=== PATIENT | male | born 2005 | race Caucasian/White ===

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

== ENCOUNTER 2025-03-07 00:41 | Emergency (ER) | payer OTHER, SELFPAY ==
[2025-03-07 00:41] VITALS: BP 134/79; PULSE 59; RESP 20; TEMP 36.6; O2SAT 98
--- NOTE | 2025-03-07 00:47 | ED.VIS.DYS ---
HPI History of Present Illness Chief Complaint: Cough PFSH PFS Medical History Marijuana use Depression Anxiety Scoliosis Home Medications ?Medication ?Instructions ?Recorded ?Last Taken ?Type escitalopram oxalate 20 mg tablet 20 mg PO DAILY 03/07/25 Unknown History (Lexapro) prednisone 20 mg tablet 20 mg PO DAILY #5 tabs 03/07/25 Unknown Rx Allergy/AdvReac Type Severity Reaction Status Date / Time No Known Allergies Allergy Verified 03/07/25 00:41 Surgical History Hx of shoulder surgery Social History Smoking Status: Never smoker substance use type: does not use EXAM Physical Exam Const Vital Signs: 03/07/25 00:41 03/07/25 00:43 03/07/25 01:19 Temperature 97.9 F Temperature Source Oral Pulse Rate 59 L 68 Respiratory Rate 20 H 12 Respiratory Effort Normal Respiratory Depth Normal Respiratory Pattern Normal Normal Blood Pressure 134/79 H Blood Pressure Mean 97 Pulse Ox 98 Oxygen Delivery Method Room Air Room Air 03/07/25 03:14 Temperature 98 F Temperature Source Pulse Rate 68 Respiratory Rate 12 Respiratory Effort Respiratory Depth Respiratory Pattern Blood Pressure 132/74 H Blood Pressure Mean 93 Pulse Ox 97 Oxygen Delivery Method MDM MDM MDM Narrative Medical decision making narrative: HISTORY OF PRESENT ILLNESS: Chief complaint: Cough 19-year-old male presents with concern for my lungs hurt when I bend over. He also notes a nonproductive cough. This began several weeks ago. Denies chest pain or shortness of breath. Denies cough fever or chills. Denies sick contacts. The patient denies recent surgery in the last 4 weeks or immobilization in the last 3 days, denies previous diagnosis of DVT or PE, hemoptysis, unilateral leg swelling or malignancy with treatment the last 6 months or palliative. No estrogen use noted. REVIEW OF SYSTEMS: Pertinent positives: Cough Pertinent negatives: Chest pain, shortness of breath PHYSICAL EXAM: Nursing triage notes reviewed, Vital signs reviewed Constitutional: please see mdm HENT: MMM Eyes: Pupils equal round and reactive to light, Extraocular muscles intact Neck: No stridor, no JVD, full neck ROM Lungs: Clear to auscultation, No wheezing or rales. No increased work of breathing, no conversational dyspnea, no accessory muscle use, no nasal flaring. No respiratory distress noted Heart: Regular rate and rhythm, No murmurs, No rubs and No gallops, 2+ distal pulses (radial, femoral, posterior tibial) in all extremities Abdomen: Soft, there is no tenderness, rigidity, rebound or guarding, no obvious peritoneal signs, no palpable pulsatile abdominal masses, no auscultated abdominal bruit : No CVAT Extremities: No edema Neuro: No new focal neurological deficits, cranial nerves II through XII intact, 5/5 strength in all present extremities. Intact sensation to light touch in all present extremities, 2+ reflexes bilateral patella tendons. Skin: No rash or lesions noted MEDICAL DECISION MAKING: Chief Complaint: please see HPI External records reviewed: Reviewed prior imaging studies: No recent imaging of the chest Factors affecting care: none Social determinants of health: History of marijuana use History obtained from others: none Consults: none MDM Narrative: The patient was initially hemodynamically stable, afebrile and nontoxic-appearing. Lungs were clear on initial auscultation. I considered the following differential diagnosis: Pneumonia, pneumonitis, pleurisy I obtained a broad chest x-ray to further determine if the patient was suffering from a life-threatening etiology. ALL IMAGES (IF OBTAINED) HAVE BEEN PERSONALLY REVIEWED AND INTERPRETED BY MYSELF. I have personally reviewed the patient's chest x-ray. Chest x-ray is unremarkable for pulmonary edema, pneumothorax, pneumonia or focal cardiopulmonary abnormality. EnCouraged patient to stop vaping and smoking. Spent at least 3 minutes discussing smoking cessation. The patient and/or family, caregivers express understanding. The patient and/or family, caregivers agrees with the plan. Shared decision making: I will have a discussion with the patient and or visitors regarding risk/benefits of further testing or admission. They will be made aware of of the risk/benefits inherent in this decision they will be given the opportunity to voice understanding. Total critical care time today provided was at least 0 minutes. This excludes separately billable procedures. Critical care time (if documented) is secondary to the patient having high probability of clinically significant/life threatening deterioration in the patient's condition which required my urgent intervention. Impression: 1. Cough 2. Vaping associated lung injury Dispo: Discharge home This note was generated with [employer] software. It may contain incorrect words, spelling, and punctuation that were not noted in review of the chart prior to signing. Radiography Diagnostic Testing: Clinical Impression(s) from Imaging Studies Chest X-Ray 03/07/25 01:00 IMPRESSION: Hyperexpanded lungs. Please evaluate to exclude hyperactive airway disease. No focal consolidation. Reading Location: [place] [address] Discharge Plan Triage Chief Complaint: Cough ED Provider: Greg Ignacio Dx/Rx/DC Orders Instructions: ED Bronchitis, No Antibiotic (Adult) Prescriptions: New prednisone 20 mg tablet 20 mg PO DAILY Qty: 5 0RF No Action escitalopram oxalate [Lexapro] 20 mg tablet 20 mg PO DAILY Primary Care Provider: Care Physician,No Primary Referrals: Cheri Alberts MD [Non-Staff, Pediatrics] Activity Restrictions/Additional Instructions: Thank you for trusting us with your care today! Your x-ray was reassuring. Did not show signs of pneumonia, heart failure or other significant abnormalities. I suspect you are suffering from inflammation of your lungs that we called bronchitis. Is likely related to your smoking activities including vaping. Please refrain from vaping and smoking as much as you can. Please take prednisone for its anti-inflammatory effect. Please take Tylenol (2 pills, 650 mg), ibuprofen (2 pills, 400 mg) every 6 hours as needed for pain and fever control. Please return to the emergency department if your symptoms change or worsen. Please follow with your primary care physician for further outpatient evaluation and management. Print Language: Yi Disposition Disposition: Home, Self Care Discharge Date/Time: 03/07/25 03:14
--- NOTE | 2025-03-07 01:00 | RAD_ITS ---
PROCEDURE: CHEST PA AND LATERAL N/A REASON FOR EXAM: COUGH TECHNIQUE: Procedure Code: RADCXR Modality: DX Procedure: CHEST PA AND LATERAL COMPARISON: None. FINDINGS: The lungs are hyperexpanded. There is no demonstrated focal parenchymal abnormality. There is no demonstrated pleural abnormality. Normal heart and pericardium. Normal mediastinum and elvira. Normal visualized pulmonary arteries. Normal visualized aortic arch and descending thoracic aorta. Normal visualized thoracic spine. Normal visualized ribs, clavicles, and shoulders. There is no demonstrated abnormality of the visualized soft tissue structures of the upper abdomen. RAD/Chest PA and Lateral IMPRESSION: Hyperexpanded lungs. Please evaluate to exclude hyperactive airway disease. No focal consolidation. Reading [facility]
[2025-03-07 01:19] VITALS: PULSE 68; RESP 12
--- NOTE | 2025-03-07 02:38 | ED.RN ---
RADIOLOGY CALLED FOR DELAY IN RESULTS. RESPONSE THEY WILL CALL WITH RESULTS
--- OUTSIDE RECORDS SUMMARY | 2025-03-07 02:45 | XMS RPT_ITS | CCD ---
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 3. PND (post-nasal drip) - ICD9: 784.91, ICD10: R09.82 - begin Flonase, available OTC 4. Vapes nicotine containing substance - ICD9: 305.1, ICD10: Z72.0 - Cessation encouraged. - Physiologic and physical aspects of tobacco addiction as well as strategies for quitting were discussed. - Counseling was given focusing on the harmful effects of this addiction especially given the patient's medical condition(s) which will be worsened because of the chemicals in tobacco. Prescription instructions reviewed with patient as applicable. Potential red flag symptoms discussed with the patient. Reviewed appropriate action plan to take if red flag symptoms occur. Patient agreeable to treatment plan. Jean Claude Adkins APRN.Jean Claude Otto APRN.CNP 11/15/2024 2:07 PM Signed Flonase OTC for sinus/sputum production Allergies As of Date: 11/15/2024 (No Known Allergies) Date Reviewed: (more content not included)... Normal [facility] CNOVon 07-11-2024 CNOV Office Visit (FAMPBR ) CHRALEY GUTIERREZ ([id number]) 5 M Date Time Provider Department 07/11/24 9:20 AM MATT MORENO During your visit today, we recorded the following information about you: Pulse Blood pressure Weight Height 78/minute 120/60 78 kg 1.829 m Matt Moreno, 07/11/2024 9:43 AM Signed Periodic Health Examination Patient Name: Charley Gutierrez Today's Date: July 11, 2024 CC: Wellness exam, est care HPI: Charley Gutierrez is an 19 year old male who presents for: Wellness exam, est care Medical, surgical, family and social histories reviewed and updated below. Girlfriend is Elle barney Here with her and her daughter Has KIM/MDD On lexapro 10 mg daily Wants to increase to 20 mg daily Just started counseling Not currently working - living with his girlfriend Looking for work until he start the [employer] Having issues with his stomach Has lactose intolerance Patient will get GI upset out of the blue- will get the runs at times as well Started 1-2 years ago Spicy foods also cause his symptoms Getting central ALLAN's nightly for the last 2 weeks Taking ibuprofen PRN for the pains Gets sensitive to light when it happens Plays a lot of video games nightly Latest Ref Rng 05/02/2024 WBC 3.70 - 11.00 k/uL 8.78 RBC 4.20 - 6.00 m/uL 5.01 Hemoglobin 13.0 - 17.0 g/dL 14.3 Hematocrit 39.0 - 51.0 % 43.7 MCV 80.0 - 100.0 fL 87.2 MCH 26.0 - 34.0 pg 28.5 MCHC 30.5 - 36.0 g/dL 32.7 RDW-CV 11.5 - 15.0 % 13.4 Platelet Count 150 - 400 k/uL 304 MPV 9.0 - 12.7 fL 9.6 Neut% % 59.7 Abs Neut (ANC) 1.45 - 7.50 k/uL 5.24 Lymph% % 28.2 Abs Lymph 1.00 - 4.00 k/uL 2.48 Attala% % 8.2 Abs Attala <0.87 k/uL 0.72 Eosin% % 3.1 Abs Eosin <0.46 k/uL 0.27 Baso% % 0.6 Abs Baso <0.11 k/uL 0.05 Immature Gran % % 0.2 IMMATURE GRANS (ABS) <0.10 k/uL <0.03 NRBC /100 WBC 0.0 Absolute nRBC <0.01 k/uL <0.01 DTYPE Auto Glucose 74 - 99 mg/dL 95 BUN 9 - 24 mg/dL 12 Creatinine 0.73 - 1.22 mg/dL 0.72 (L) Sodium 136 - 144 mmol/L 138 Potassium 3.7 - 5.1 mmol/L 4.3 Chloride 98 - 107 mmol/L 103 CO2 22 - 30 mmol/L 27 Anion Gap 8 - 15 mmol/L 8 Calcium 8.5 - 10.2 mg/dL 9.0 eGFR >=60 mL/min/1.73m? 136 ANTHONY High Sensitivity <12 ng/L 9 ANTHONY High Sensitivity 8 Legend: (L) Low PAST MEDICAL HISTORY Diagnosis Date Concussion 07/31/2017 NEGATIVE HISTORY OF 12-25-2013 Normal Color Vision Routine or ritual circumcision Unspecified and jaundice PAST SURGICAL HISTORY Procedure Laterality Date CIRCUMCISION W/CLAMP/OTH DEV W/BLOCK Current Outpatient Medications Medication Sig Dispense Refill escitalopram oxalate (LEXAPRO) 20 mg tablet Take 1 tablet by mouth once daily. 90 tablet 3 famotidine (PEPCID) 20 mg tablet Take 1 tablet by mouth two times a day. 180 tablet 0 No current facility-administered medications for this visit. FamHx: Reviewed FAMILY HISTORY Problem Relation Age of Onset Diabetes Other mggm SocHx: Reviewed Social History Tobacco Use Smoking status: Never Smokeless tobacco: Never Substance Use Topics Alcohol use: No Drug use: No Health Maintenance reviewed REVIEW OF SYSTEMS See HPI PHYSICAL EXAM BP 120/60 Pulse 78 Ht 182.9 cm (6') Wt 78 kg (172 lb) SpO2 97% BMI 23.33 kg/m? Gen: Patient is pleasant, alert, and in no acute distress Head: Normocephalic, atraumatic Eyes: BHUPINDER, EOMI, sclera anicteric ENT: No nasal discharge, no pharyngeal erythema or exudate Neck: Supple, no lymphadenopathy, no thyromegaly CV: Regular rate and rhythm, normal S1/S2, no murmurs, rubs, or gallops Pulm: Clear to auscultation bilaterally, no wheezes, crackles, or rhonchi Abd: Soft, non-tender, non-distended. No masses or organomegaly Neuro: CN III-XII intact, no involuntary movements. Strength 5/5 upper and lower extremities. Sensation intact bilaterally. Extrem: No cyanosis, clubbing, or edema Skin: Warm, dry, no visible rashes, scattered CPs and melanocytic nevi without suspicious features over the face, neck, trunk, bilateral upper and lower extremities. 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 As applicable, any other physician, advance practice provider, medical student, or other health professional student that will be observing or involved in the sensitive examination for educational or training purposes was discussed with the Patient or Authorized Residential Plumber. The Patient or Authorized Residential Plumber has agreed to proceed with the sensitive examination. ASSESSMENT AND PLAN 19 year old male here ASSESSMENT/PLAN: 1. Wellness examination - ICD9: V70.0, ICD10: Z00.00 (primary diagnosis) - Counseled on hea (more content not included)... Normal [facility] Basic metabolic 2000 panelon 05-02-2024 Anion gap [Moles/Vol] 8 mmol/L Normal 8-15 [facility] Comment on above: Order Comment: Speci men Type: BLOOD SPECIMENOrdering Facility: [facility] Address: [address] [place] [address] Performed By: #### Sweta [id number], 93453-9 ####MAGDA [facility] LABORATORYCLIA [id number] [place] [address] [place] Calcium [Mass/Vol] 9.0 mg/dL Normal 8.5-10.2 [facility] Comment on above: Order Comment: Speci men Type: BLOOD SPECIMENOrdering Facility: [facility] Address: [address] [place] [address] Performed By: #### Sewta [id number], 90204-0 ###DEBBI [facility] LABORATORYCLIA [id number] [place] [address] [place] Chloride [Moles/Vol] 103 mmol/L Normal 98-107 [facility] Comment on above: Order Comment: Speci men Type: BLOOD SPECIMENOrdering Facility: [facility] Address: [address] [place] [address] Performed By: #### L [id number], 77639-0 ####[facility]DA [facility] LABORATORYCLIA [id number] [place] [address] [place] CO2 [Moles/Vol] 27 mmol/L Normal 22-30 [facility] Comment on above: Order Comment: Speci men Type: BLOOD SPECIMENOrdering Facility: [facility] Address: [address] [place] [address] Performed By: #### L [id number], 89612-4 ####MINAFERNANDO [facility] LABORATORYCLIA [id number] [place] [address] [place] [facility] Creatinine [Mass/Vol] 0.72 mg/dL Low 0.73-1.22 [facility] Comment on above: Order Comment: Speci men Type: BLOOD SPECIMENOrdering Facility: [facility] Address: [address] [place] [address] Performed By: #### L [id number], 04291-6 ####MINAFERNANDO [facility] LABORATORYIA [id number] [address] Creatinine and Glomerular filtration rate.predicted panel (S/P/Bld) 136 mL/min/1.73m??? Normal >=60 [facility] Comment on above: Order Comment: Speci men Type: BLOOD SPECIMENOrdering Facility: [facility] Address: [address] [place] [address] Result Comment: Lisandra mated Glomerular Filtration Rate (eGFR) is calculated using the 2020 CKD-EPI creatinine equation. This equation utilizes serum creatinine, sex, and age as parameters. The creatinine assay has traceable calibration to isotope dilution-mass spectrometry. Refer to KDIGO guidelines for clinical interpretation. In patients with unstable renal function, e.g. those with acute kidney injury, the eGFR may not accurately reflect actual GFR. Performed By: #### Sweta [id number], 84278-3 ####[facility] LABORATORYCLIA [id number] [place] [address] [place] Glucose [Mass/Vol] 95 mg/dL Normal 74-99 [facility] Comment on above: Order Comment: Renetta quinones Type: BLOOD SPECIMENOrdering Facility: [facility] Address: [address] [place] [address] Result Comment: The [place] Diabetes [employer] (ADA) provides guidance for cutoff values for fasting glucose and random glucose. The ADA defines fasting as no caloric intake for at least 8 hours. Fasting plasma glucose results between 100 to 125 mg/dL indicate increased risk for diabetes (prediabetes). Fasting plasma glucose results greater than or equal to 126 mg/dL meet the criteria for diagnosis of diabetes. In the absence of unequivocal hyperglycemia, results should be confirmed by repeat testing. In a patient with classic symptoms of hyperglycemia or hyperglycemic crisis, random plasma glucose results greater than or equal to 200 mg/dL meet the criteria for diagnosis of diabetes. Reference: Standards of Medical Care in Diabetes 2016, [place] [employer] Association. Diabetes Care. 2016.39(Suppl 1). Performed By: #### Sweta [id number], 12839-1 ####[facility] LABORATORYCLIA [id number] [place] [address] [place] Potassium [Moles/Vol] 4.3 mmol/L Normal 3.7-5.1 [facility] Comment on above: Order Comment: Renetta quinones Type: BLOOD SPECIMENOrdering Facility: [facility] Address: [address] [place] [address] Performed By: #### L [id number], 82565-3 ####[facility] SERVICESFERNANDO [facility] LABORATORYIA [id number] [place] [address] [place] Sodium [Moles/Vol] 138 mmol/L Normal 136-144 [facility] Comment on above: Order Comment: Renetta quinones Type: BLOOD SPECIMENOrdering Facility: [facility] Address: [address] [place] [address] Performed By: #### L [id number], 95632-8 ####MARIBELLFERNANDO [facility] LABORATORYCLIA [id number] [place] [address] [place] [facility] Urea nitrogen [Mass/Vol] 12 mg/dL Normal 9-24 [facility] Comment on above: Order Comment: Speci men Type: BLOOD SPECIMENOrdering Facility: [facility] Address: [address] [place] [address] Performed By: #### L [id number], 78887-0 ####MINACURLY [facility] LABORATORYCLIA [id number] [place] [address] [place] [facility] CBC W Auto Differential pane l (Bld)on 05-02-2024 Basophils (Bld) [#/Vol] 0.05 10*3/uL Normal <0.11 [facility] Comment on above: Order Comment: Speci men Type: BLOOD SPECIMENOrdering Facility: [facility] Address: [address] [place] [address] Performed By: #### 5 7021-8 ####[facility] HE[facility] SERVICESFERNANDO [facility] - VENICEIA [id number] [address] [place] [facility] Basophils/100 WBC (Bld) 0.6 % Normal [facility] Comment on above: Order Comment: Speci men Type: BLOOD SPECIMENOrdering Facility: [facility] Address: [address] [place] [address] Performed By: #### 5 7021-8 ####MINAFERNANDO [facility] LABORATORYIA [id number] [address] [place] [facility] Differential cell count method Nom (Bld) Auto Normal [facility] Comment on above: Order Comment: Speci men Type: BLOOD SPECIMENOrdering Facility: [facility] Address: [address] [place] [address] Performed By: #### 5 7021-8 ####MINAFERNANDO [facility] LABORATORYIA [id number] [address] [place] Eosinophils (Bld) [#/Vol] 0.27 10*3/uL Normal <0.46 [facility] Comment on above: Order Comment: Speci men Type: BLOOD SPECIMENOrdering Facility: [facility] Address: [address] [place] [address] Performed By: #### 5 7021-8 ####MINACURLY [facility] LABORATORYCLIA [id number] [place] [address] [place] Eosinophils/100 WBC (Bld) 3.1 % Normal [facility] Comment on above: Order Comment: Speci men Type: BLOOD SPECIMENOrdering Facility: [facility] Address: [address] [place] [address] Performed By: #### 5 7021-8 ####[facility]DA [facility] LABORATORYCLIA [id number] [place] [address] [place] Erythrocyte distribution width (RBC) [Ratio] 13.4 % Normal 11.5-15.0 [facility] Comment on above: Order Comment: Speci men Type: BLOOD SPECIMENOrdering Facility: [facility] Address: [address] [place] [address] Performed By: #### 5 7021-8 ####[facility] LABORATORYIA [id number] [address] [place] Hematocrit (Bld) [Volume fraction] 43.7 % Normal 39.0-51.0 [facility] Comment on above: Order Comment: Speci men Type: BLOOD SPECIMENOrdering Facility: [facility] Address: [address] [place] [address] Performed By: #### 5 7021-8 ####[facility] LABORATORYIA [id number] [place] [address] [place] Hemoglobin (Bld) [Mass/Vol] 14.3 g/dL Normal 13.0-17.0 [facility] Comment on above: Order Comment: Speci men Type: BLOOD SPECIMENOrdering Facility: [facility] Address: [address] [place] [address] Performed By: #### 5 7021-8 ####[facility] LABORATORYCLIA [id number] [place] [address] [place] Immature granulocytes (Bld) [#/Vol] 10*3/uL Normal <0.10 [facility] Comment on above: Order Comment: Speci men Type: BLOOD SPECIMENOrdering Facility: [facility] Address: [address] [place] [address] Performed By: #### 5 7021-8 ####[facility] LABORATORYCLIA [id number] [address] [place] Immature granulocytes/100 WBC (Bld) 0.2 % Normal [facility] Comment on above: Order Comment: Speci men Type: BLOOD SPECIMENOrdering Facility: [facility] Address: [address] [place] [address] Performed By: #### 5 7021-8 ####MINAFERNANDO [facility] LABORATORYIA [id number] [place] [address] [place] Lymphocytes (Bld) [#/Vol] 2.48 10*3/uL Normal 1.00-4.00 [facility] Comment on above: Order Comment: Speci men Type: BLOOD SPECIMENOrdering Facility: [facility] Address: [address] [place] [address] Performed By: #### 5 7021-8 ####[facility]DA [facility] LABORATORYCLIA [id number] [place] [address] [place] Lymphocytes/100 WBC (Bld) 28.2 % Normal [facility] Comment on above: Order Comment: Speci men Type: BLOOD SPECIMENOrdering Facility: [facility] Address: [address] [place] [address] Performed By: #### 5 7021-8 ####MINAFERNANDO [facility] LABORATORYCLIA [id number] [place] [address] [place] MCH (RBC) [Entitic mass] 28.5 pg Normal 26.0-34.0 [facility] Comment on above: Order Comment: Speci men Type: BLOOD SPECIMENOrdering Facility: [facility] Address: [address] [place] [address] Performed By: #### 5 7021-8 ####MINACURLY [facility] LABORATORYCLIA [id number] [address] [place] MCHC (RBC) [Mass/Vol] 32.7 g/dL Normal 30.5-36.0 [facility] Comment on above: Order Comment: Speci men Type: BLOOD SPECIMENOrdering Facility: [facility] Address: [address] [place] [address] Performed By: #### 5 7021-8 ####MINACURLY [facility] LABORATORYIA [id number] [place] [address] [place] MCV (RBC) [Entitic vol] 87.2 fL Normal 80.0-100.0 [facility] Comment on above: Order Comment: Speci men Type: BLOOD SPECIMENOrdering Facility: [facility] Address: [address] [place] [address] Performed By: #### 5 7021-8 ####[facility]DA [facility] LABORATORYIA [id number] [place] [address] [place] Monocytes (Bld) [#/Vol] 0.72 10*3/uL Normal <0.87 [facility] Comment on above: Order Comment: Speci men Type: BLOOD SPECIMENOrdering Facility: [facility] Address: [address] [place] [address] Performed By: #### 5 7021-8 ####[facility]ORATORYCLIA [id number] [address] [place] Monocytes/100 WBC (Bld) 8.2 % Normal [facility] Comment on above: Order Comment: Speci men Type: BLOOD SPECIMENOrdering Facility: [facility] Address: [address] [place] [address] Performed By: #### 5 7021-8 ####[facility]ORATORYCLIA [id number] [place] [address] [place] Neutrophils (Bld) [#/Vol] 5.24 10*3/uL Normal 1.45-7.50 [facility] Comment on above: Order Comment: Speci men Type: BLOOD SPECIMENOrdering Facility: [facility] Address: [address] [place] [address] Performed By: #### 5 7021-8 ####MINACURLY [facility] LABORATORYIA [id number] [place] [address] [place] Neutrophils/100 WBC (Bld) 59.7 % Normal [facility] Comment on above: Order Comment: Speci men Type: BLOOD SPECIMENOrdering Facility: [facility] Address: [address] [place] [address] Performed By: #### 5 7021-8 ####MAGDA [facility] VEN[facility]IA [id number] [place] [address] [place] Nucleated RBC (Bld) [#/Vol] 10*3/uL Normal <0.01 [facility] Comment on above: Order Comment: Speci men Type: BLOOD SPECIMENOrdering Facility: [facility] Address: [address] [place] [address] Performed By: #### 5 7021-8 ####MINACURLY [facility] LABORATORYIA [id number] [place] [address] [place] Nucleated RBC/100 WBC (Bld) [Ratio] 0.0 /100 WBC Normal [facility] Comment on above: Order Comment: Speci men Type: BLOOD SPECIMENOrdering Facility: [facility] Address: [address] [place], [place] [address] Performed By: #### 5 7021-8 ####MINACURLY [facility] LABORATORYIA [id number] [place] [address] [place] Platelet mean volume (Bld) [Entitic vol] 9.6 fL Normal 9.0-12.7 [facility] Comment on above: Order Comment: Speci men Type: BLOOD SPECIMENOrdering Facility: [facility] Address: [address] [place] [address] Performed By: #### 5 7021-8 ####[facility] LABORATORYCLIA [id number] [address] Platelets (Bld) [#/Vol] 304 10*3/uL Normal 150-400 [facility] Comment on above: Order Comment: Speci men Type: BLOOD SPECIMENOrdering Facility: [facility] Address: [address] [place] [address] Performed By: #### 5 7021-8 ####[facility] LABORATORYIA [id number] [address] RBC (Bld) [#/Vol] 5.01 10*6/uL Normal 4.20-6.00 [facility] Comment on above: Order Comment: Speci men Type: BLOOD SPECIMENOrdering Facility: [facility] Address: [address] [place] [address] Performed By: #### 5 7021-8 ####[facility]DA [facility]IA [id number] [address] WBC (Bld) [#/Vol] 8.78 10*3/uL Normal 3.70-11.00 [facility] Comment on above: Order Comment: Speci men Type: BLOOD SPECIMENOrdering Facility: [facility] Address: [address] [place] [address] Performed By: #### 5 7021-8 ####[facility] LABORATORYIA [id number] [address] [id number] 05-02-2024 ECG01 Ventricular Rate : 5 6 BPM Atrial Rate : 56 BPM P-R Interval : 146 ms QRS Duration : 86 ms Q-T Interval : 374 ms QTC Calculation(Bazett) : 360 ms Calculated P [place] : 58 degrees Calculated R [place] : 92 degrees Calculated T [place] : 66 degrees SINUS BRADYCARDIA RIGHT AXIS BORDERLINE ECG NO STEMI. AGREE Confirmed by DO FARAH MICHELLE ([id number]), television news video editor MICHELLE JOHNSON ([id number]) on 05/03/2024 9:16:47 PM NAME : CHARLEY GUTIERREZ PID : [id number] : 2005 Gender : Male Race : ORD : Procedure Date : May 02 2024 19:53:25 Edit Date : May 03 2024 21:16:51 Diagnosis: SINUS BRADYCARDIA RIGHT AXIS BORDERLINE ECG NO STEMI. AGREE Confirmed by DO FARAH MICHELLE (), television news video editor MICHELLE JOHNSON ([id number]) on 05/03/2024 9:16:47 PM Test Reason : Location : 215 : BRUED 009 Overread By : DO FARAH MICHELLE Edited By : MICHELLE JOHNSON Referred By : , Acquired by : as, oJcelyne [facility] ED NOTEon 05-02-2024 ED NOTE HNO ID: [id number] Author: LEANDRA MOTLEY RN Service: Emergency Medicine Author Type: Registered Nurse Type: ED Notes Filed: 05/02/2024 21:50 Note Text: Pt alert and oriented x 3, per TAMIKO Dejesus, Pt is stable to be d/c home. V.S stable, Patient speaking in full sentences, respirations are even and unlabored.Verbal and written D.C. instructions reviewed with patient. Pt verbalized understanding instructions, medications, and follow up with PCP. Pt instructed to return to ED as needed for persistent or worsening symptoms or any new concerns. Patient is leaving ambulatory with steady gait and all belongings with them. Normal [facility] ED NOTE HNO ID: [id number] Author: CRUZ BARRERA RN Service: Emergency Medicine Author Type: Registered Nurse Type: ED Notes Filed: 05/02/2024 19:52 Note Text: Pt. Arrives with chest pain, SOB that started yesterday while playing a video game and has continued today. Pt. States pain has not gotten worse, but is constant. Normal [facility] ED PROV NOTEon 05-02-2024 ED PROV NOTE HNO ID: [id number] Author: ANJELICA DOLL PA-C Service: ? Author Type: Physician Credit Analysis Manager Type: ED Provider Notes Filed: 05/02/2024 22:36 Note Text: ED Provider Note Patient Name: Charley Gutierrez : 2005 SERVICE DATE: 05/02/24 History Patient presents with: Chest Pain 18-year-old male presents to ED complaining of chest pain. Chest pain started yesterday while playing videogames, continued today. Worse with lifting his arms, feels a tightness. Pain is constant, does not change with activity or position. Has not taken anything for relief. History provided by: Medical records and patient PAST MEDICAL HISTORY Diagnosis Date Concussion 07/31/2017 NEGATIVE HISTORY OF 12-25-2013 Normal Color Vision Routine or ritual circumcision Unspecified and jaundice PAST SURGICAL HISTORY Procedure Laterality Date CIRCUMCISION W/CLAMP/OTH DEV W/BLOCK FAMILY HISTORY Problem Relation Age of Onset Diabetes Other mggm Social History Tobacco Use Smoking status: Never Smokeless tobacco: Never Vaping Use Vaping status: Not on file Substance and Sexual Activity Alcohol use: No Drug use: No Sexual activity: Never ALLERGIES No Known Allergies Review of Systems Constitutional: Negative for chills and fever. Respiratory: Negative. Cardiovascular: Positive for chest pain. Skin: Negative. Neurological: Negative. Physical Exam Vitals [05/02/241948] BP Pulse Temp Temp src Resp SpO2 Weight Height 135/66 67 36.5 ?C (97.7 ?F) Oral 18 100 % 81.6 kg (180 lb) -- Physical Exam Vitals and nursing note reviewed. Constitutional: Appearance: Normal appearance. HENT: Head: Normocephalic and atraumatic. Mouth/Throat: Mouth: Mucous membranes are moist. Cardiovascular: Rate and Rhythm: Normal rate. Pulses: Normal pulses. Pulmonary: Effort: Pulmonary effort is normal. Musculoskeletal: Right lower leg: No edema. Left lower leg: No edema. Skin: General: Skin is warm and dry. Capillary Refill: Capillary refill takes less than 2 seconds. Neurological: Mental Status: He is alert and oriented to person, place, and time. Diagnostic Testing ED Labs Ordered and Reviewed - No data to display XR CHEST 2V FRONTAL/LAT Final Result IMPRESSION: No acute radiographic abnormality. Business Line Controller: BALJIT Transcribe Date/Time: May 02 2024 8:59P Dictated by : JULIANN NIELSEN MD This examination was interpreted and the report reviewed and electronically signed by: JULIANN NIELSEN MD on May 02 2024 9:01PM EST Procedures ED Course / Clinical Impression Clinical Impressions as of 05/02/24 2234 Chest wall pain Non-smoker MDM / Disposition / Plan 18 year old male presents c/o chest pain. Pain for 2 days with worse with movement of both shoulders. EKG shows sinus bradycardia 56 beats, no acute ST changes. No leukocytosis or anemia. Normal renal function and electrolytes. Troponin negative x 2. Chest x-ray shows no acute abnormality. Toradol given for pain relief. Stacie results with patient, likely musculoskeletal. Counseled regarding supportive care, safe for discharge home and follow-up with PCP. Differential Diagnoses - Musculoskeletal chest pain - ACS Less likely because: no evidence of ACS based on cardiac biomarkers and EKG without ischemia - Pneumothorax Less likely because: CXR without PTX and bilateral breath sounds Additional complaint based differentials considered: pneumothorax, ACS Management I performed an independent interpretation of the following:imaging Imaging: My interpretation is No infiltrate or pneumothorax Re-evaluation vital signs in acceptable range Anjelica Doll PA-C Disposition The patient was discharged. Counseled patient regarding lab results, radiology results and suspected diagnosis. SIGNATURE: Anjelica Doll PA-C - ANJELICA DOLL 05/02/24 2236 Normal [facility] HIGH SENSITIVITY TROPONIN T (INITIAL)on 05-02-2024 Troponin T.cardiac High sensitivity method [Mass/Vol] 8 ng/L Normal <12 [facility] Comment on above: Order Comment: Specmihir quinones Type: BLOOD SPECIMENOrdering Facility: [facility] Address: [address] [place] [address] Performed By: #### L [id number], [id number] ###[facility] LABORATORYCLIA [id number] [place] [address] [place] HIGH SENSITIVITY TROPONIN T (SECOND)on 05-02-2024 Troponin T.cardiac High sensitivity method [Mass/Vol] 9 ng/L Normal <12 [facility] Comment on above: Order Comment: Renetta quinones Type: BLOOD SPECIMENOrdering Facility: [facility] Address: [address] [place] [address] Performed By: #### L [id number] ###[facility] LABORATORYCLIA [id number] [address] STATES OF [facility] XR CHEST 2V FRONTAL/LATon XR CHEST 2V FRONTAL/LAT * *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 Family/Caregiver Present: Yes Patient preferences: New Rx orders: WBAT LLE in KI. Ok to quad strengthen, continue w/ knee flexion (aggressive) General Comments: States 2/10 pain today. States the knee has been tender in the front area. Has been increasing the amount of times he is bending it at home. Pain Pain Assessment Pain Score: 2 Treatment Aquatic Therapy Exercises performed?: Yes (knee ROM, strength, and functional mobility) Assessment PT Assessment PT Assessment: Trialed first aquatic session to improve therex tolerance and reduction of pain levels. Good tolerance today and able to perform all exercises without pain. Patient reported he felt more comfortable with bending of the knee in the pool vs. in the gym. Still demonstrates using assistance from the RLE for elevation of the LLE. Instructed on improving use of the LLE to help expedite both strength and mobility. Patient not as hesistant to perform bending. Weakness in the left hip mm's noted, initiated strengthening in the pool with difficulty and weakness present. Plan Plan PT Plan: continue w/ aquatic therapy, d/c shoulder General/Ortho Patient will report 85% or > return to PLOF. (Progressing) Start: 06/16/22 Expected End: 09/14/22 Patient will report decreased pain at 1/10 or < in left knee to be able to improve tolerance to daily activities and allow for therapy progressions. (Progressing) Start: 06/16/22 Expected End: 09/14/22 Patient will increase ROM of left knee to 0-120 be able to normalize gait mechanics and improve functional mobility. (Progressing) Start: 06/16/22 Expected End: 09/14/22 Patient will increase strength in LLE to 5/5 to be able to ensure safe transfers and return to recreational activities. (Progressing) Start: 06/16/22 Expected End: 09/14/22 Gait: Patient will demonstrate ability to ambulate with no evident gait deviations present utilizing no assistive device. (Progressing) Start: 06/16/22 Expected End: 09/14/22 Balance: Patient will improve SLS to >20 sec to improve safety with transfers and stair negotiation. (Progressing) Start: 06/16/22 Expected End: 09/14/22 Functional Outcome Measure: Patient will improve LEFS to >60. (Progressing) Start: 06/16/22 Expected End: 09/14/22 Time Entry Total Treatment Time Start Time: 1610 Stop Time: 1655 Time Calculation (min): 45 min PT Therapeutic Procedures Time Entry Aquatic Therapy Time Entry: 3 Malika Gramajo, PT Normal [facility] Progress Noteon 07-09-2022 Progress Note [facility] AT [facility] [address] [place] [address] Dept: [phone] Dept PHYSICAL THERAPY TREATMENT NOTE Patient Name: Charley Gutierrez : 2005 Today's Date: 07/09/2022 Subjective General Visit Information General Chart Reviewed: Yes Patient preferences: New Rx orders: WBAT LLE in KI. Ok to quad strengthen, continue w/ knee flexion (aggressive) Pain Pain Assessment Pain Score: 6 Treatment Therapeutic Exercise Therapeutic Exercise Activity 2: Knee flexion ROM Activity 2 Comment: hot pack applied to quad & ham: heel slides on wall w/ PT assist and RLE assist 8 min, supine heel slides w/ PT assist 5 min, seated edge of plinth knee flexion w/ PT assist (hot pack and pre mod E-stim applied) 5 min Therapeutic Exercise Acitivity 3: Quad strength Activity 3 Comment: Long sit QS (w/ RLE) 3 2x10, SAQ w/ bolster mod PT assist 2x10 Assessment PT Assessment PT Assessment: Patient still very muscle guarded during knee ROM exercises due to pain with bending. Several different positions trialed this visit with very little success. Moist heat did help to reduce some tension in the muscle however significant guarding and poor tolerance. No change in pain with application of E-stim Pre-mod setting and moist heat. Discussed with patient increasing amount of times he is performing bending exercises at home (to at least 4-5 times a day). Also told to trial getting in the bathtub with assist to try bending in the warm water. Grandfather present and PT gave update on lack of progress. Told them I will be contacting the referring provider to brainstorm what needs to be implemented to help patient progress. Plan Plan PT Plan: trial US for pain relief prior to knee flexion ROM exercises General/Ortho Patient will report 85% or > return to PLOF. (Progressing) Start: 06/16/22 Expected End: 09/14/22 Patient will report decreased pain at 1/10 or < in left knee to be able to improve tolerance to daily activities and allow for therapy progressions. (Progressing) Start: 06/16/22 Expected End: 09/14/22 Patient will increase ROM of left knee to 0-120 be able to normalize gait mechanics and improve functional mobility. (Progressing) Start: 06/16/22 Expected End: 09/14/22 Patient will increase strength in LLE to 5/5 to be able to ensure safe transfers and return to recreational activities. (Progressing) Start: 06/16/22 Expected End: 09/14/22 Gait: Patient will demonstrate ability to ambulate with no evident gait deviations present utilizing no assistive device. (Progressing) Start: 06/16/22 Expected End: 09/14/22 Balance: Patient will improve SLS to >20 sec to improve safety with transfers and stair negotiation. (Progressing) Start: 06/16/22 Expected End: 09/14/22 Functional Outcome Measure: Patient will improve LEFS to >60. (Progressing) Start: 06/16/22 Expected End: 09/14/22 Time Entry Total Treatment Time Start Time: 1605 Stop Time: 1645 Time Calculation (min): 40 min PT Therapeutic Procedures Time Entry Therapeutic Exercise Time Entry: 20 Manual Therapy Time Entry: 15 Malika Gramajo, PT Normal [facility] Progress Noteon 07-07-2022 Progress Note [facility] AT [address] [place] [address] Dept: [phone] Dept PHYSICAL THERAPY TREATMENT NOTE Patient Name: Charley Gutierrez : 2005 Today's Date: 07/07/2022 Subjective General Visit Information General Chart Reviewed: Yes Patient preferences: New Rx orders: WBAT LLE in KI. Ok to quad strengthen, continue w/ knee flexion (aggressive) General Comments: New exercises have been going well. Had some muscle soreness after last session. Has been working on bending the leg only a few times a day with his mom's assistance. Pain Pain Assessment Pain Score: 0 - No pain Treatment Therapeutic Exercise Therapeutic Exercise Activity 2: Knee flexion ROM Activity 2 Comment: prolonged stretch (high mat to seat) 3min, 2x10 seated slow lowering w/ PT/gravity assist, prone knee flexion stretch 1x10, supine heel slides (PT assist) 1x10 Balance/Neuromuscular Re-Education Balance/Neuromuscular Re-Education Activity 1: [place] Citizen for quad Neuro-Ed Activity 1 Comment: on/off 0.5 ramp Normal setting 10 min (2 electrodes: 1 over VMO 1 over quad motor point) Soft Tissue Mobilization Location: Left knee (swelling management) Body Position: Supine Assessment PT Assessment PT Assessment: Poor tolerance to flexion ROM exercises. Pain and extreme muscle guarding during PT assisted flexion exercises and overpressure during prolonged stretching. Swelling and tightness still present. Trialed STM to the quad and hamstring and that did not assist in tolerance. Trialed several different positions as well (supine, seated, and prone), all with fair-poor tolerance. Discussed speaking with parents and physician regarding taking some kind of pain medication prior to therapy sessions to help assist in ability to progress. Issued size E Tubigrip to see if that assists with swelling and instructed patient to increase amount of times a day doing bending exercises. Plan Plan PT Plan: continue w/ emphasis on knee flexion ROM General/Ortho Patient will report 85% or > return to PLOF. (Progressing) Start: 06/16/22 Expected End: 09/14/22 Patient will report decreased pain at 1/10 or < in left knee to be able to improve tolerance to daily activities and allow for therapy progressions. (Progressing) Start: 06/16/22 Expected End: 09/14/22 Patient will increase ROM of left knee to 0-120 be able to normalize gait mechanics and improve functional mobility. (Progressing) Start: 06/16/22 Expected End: 09/14/22 Patient will increase strength in LLE to 5/5 to be able to ensure safe transfers and return to recreational activities. (Progressing) Start: 06/16/22 Expected End: 09/14/22 Gait: Patient will demonstrate ability to ambulate with no evident gait deviations present utilizing no assistive device. (Progressing) Start: 06/16/22 Expected End: 09/14/22 Balance: Patient will improve SLS to >20 sec to improve safety with transfers and stair negotiation. (Progressing) Start: 06/16/22 Expected End: 09/14/22 Functional Outcome Measure: Patient will improve LEFS to >60. (Progressing) Start: 06/16/22 Expected End: 09/14/22 Time Entry Total Treatment Time Start Time: 1630 Stop Time: 1710 Time Calculation (min): 40 min PT Therapeutic Procedures Time Entry Therapeutic Exercise Time Entry: 20 Manual Therapy Time Entry: 5 Neuromuscular Re-Education Time Entry: 10 Malika Gramajo, PT Normal [facility] Progress Note [facility] AT [place] [address] [place] [address] Dept: [phone] Dept PHYSICAL THERAPY TREATMENT NOTE Patient Name: Charley Gutierrez : 2005 Today's Date: 07/07/2022 Subjective General Visit Information General Chart Reviewed: Yes Reason for referral/mechanism of injury: Patient presents today 2 weeks s/p left shoulder anterior labral repair on 04/02/22. He presents with father today who reports this past summer the patient fell and dislocated the shoulder with rollerskating. The shoulder was put back in place, he then discloated the shoulder again during football. Went to the ER, they said it wasnt dislocated and he was released back to play football. He then injured the shoulder again during football. Went to the chiropractor, they did massage and then referred out to Dr. Lu. Dr. Lu then referred to Dr. Johnson. Surgery performed on 04/02/22 to repair left anterior labrum. He presents today donning left shoulder sling, with no post operative complications reported. Just had a follow up with ortho office the other day, sutures were removed. Pain since the surgery comes and goes. He has been compliant with sling use, only icing as needed. He is right hand dominant. Currently requiring assist with all ADL's due to inability to use the LUE. 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 General Comments: No complaints with the shoulder today and still having no pain. Pain Pain Assessment Pain Assessment: No/denies pain Treatment Therapeutic Exercise Therapeutic Exercise Activity 1: Nu-step Activity 1 Comment: Seat 14-->12 (UE at 12) Lvl 1 8 min total Therapeutic Exercise Activity 7: Shoulder raises Activity 7 Comment: at wall #3 DB 2x10 flexion and scaption Therapeutic Exercise Activity 8: Push up plus at edge of plinth Activity 8 Comment: 3x10 Therapeutic Exercise Activity 9: Houghstons Activity 9 Comment: #2 DB 2x10 ea Assessment PT Assessment PT Assessment: Good tolerance to all shoulder exercises. Demonstrating improved form and scapular stability with exercises. No pain or symptoms with putting weight through during plinth push ups. Progressing well towards improved stability and recovery post surgery. Plan Plan PT Plan: add body blade for shoulder stab General/Ortho Patient will improve LUE MMT to 5/5 in all planes to facilitate safe return to sport. (Progressing) Start: 04/16/22 Expected End: 07/16/22 General/Ortho Patient will increase Left shoulder ER AROM to 75 degrees or > to be able to improve joint mobility with ADL's and sporting activities. (Progressing) Start: 06/16/22 Expected End: 07/16/22 Time Entry Total Treatment Time Start Time: 1600 Stop Time: 1627 Time Calculation (min): 27 min PT Therapeutic Procedures Time Entry Therapeutic Exercise Time Entry: 27 Malika Gramajo, PT [facility] Progress Noteon 07-02-2022 Progress Note [facility] AT [address] [place] [address] Dept: [phone] Dept PHYSICAL THERAPY TREATMENT NOTE Patient Name: Charley Gutierrez : 2005 Today's Date: 07/02/2022 Subjective General Visit Information General Chart Reviewed: Yes Reason for referral/mechanism of injury: Patient presents today 2 weeks s/p left shoulder anterior labral repair on 04/02/22. He presents with father today who reports this past summer the patient fell and dislocated the shoulder with rollerskating. The shoulder was put back in place, he then discloated the shoulder again during football. Went to the ER, they said it wasnt dislocated and he was released back to play football. He then injured the shoulder again during football. Went to the chiropractor, they did massage and then referred out to Dr. Lu. Dr. Lu then referred to Dr. Johnson. Surgery performed on 04/02/22 to repair left anterior labrum. He presents today donning left shoulder sling, with no post operative complications reported. Just had a follow up with ortho office the other day, sutures were removed. Pain since the surgery comes and goes. He has been compliant with sling use, only icing as needed. He is right hand dominant. Currently requiring assist with all ADL's due to inability to use the LUE. 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 Patient preferences: New Rx orders: WBAT LLE in KI. Ok to quad strengthen, continue w/ knee flexion (aggressive) General Comments: Had follow up with Dr. Sigala and he states he is behind with motion and very weak. Ok to start strengthening. Patient has been working on bending at home. Has been elevating, however not icing. Swelling still present. Pain Pain Assessment Pain Assessment: No/denies pain Treatment Therapeutic Exercise Therapeutic Exercise Activity 1: Nu-step Activity 1 Comment: Seat 14-->12 (UE at 13) Lvl 1 7 min total Therapeutic Exercise Activity 2: Knee flexion ROM Activity 2 Comment: prolonged stretch (high mat to seat) 1min, 1x10 slow lowering w/ PT/gravity assist, supine heel slides (PT assist) 1x5 Therapeutic Exercise Acitivity 3: Quad strength Activity 3 Comment: Long sit QS (w/ RLE) 3 2x10 Balance/Neuromuscular Re-Education # of Activities: 1 Balance/Neuromuscular Re-Education Activity 1: [place] Citizen for quad Neuro-Ed Activity 1 Comment: 04/12 on/off 0.5 ramp Normal setting 8 min (2 electrodes: 1 over VMO 1 over quad motor point) Assessment PT Assessment PT Assessment: Initiated Nu-step for knee ROM now that strengthening restrictions lifted. Able to achieve about 45 degrees flexion on Nu-step. Patient fearful and hesistant to bend the knee still. Significant muscle guarding present during all ROM exercises, especially with PT assist. Quad strengthening initiated with quad sets added to HEP and [place] E-stim. Fair quad contraction visibally present. distal quad atrophy evident. Good tolerance to [place] Citizen. Educated both patient and grandparent about new PT protocol instructions and to continue to follow KI instructions and to try to use the LLE more now that can activate the quad. Plan Plan PT Plan: SAQ w/ PT assist, trial STM with knee flexion PROM, progress [place] Citizen to co-contract with QS if able General/Ortho Patient will report 85% or > return to PLOF. (Progressing) Start: 06/16/22 Expected End: 09/14/22 Patient will report decreased pain at 1/10 or < in left knee to be able to improve tolerance to daily activities and allow for therapy progressions. (Progressing) Start: 06/16/22 Expected End: 09/14/22 Patient will increase ROM of left knee to 0-120 be able to normalize gait mechanics and improve functional mobility. (Progressing) Start: 06/16/22 Expected End: 09/14/22 Patient will increase strength in LLE to 5/5 to be able to ensure safe transfers and return to recreational activities. (Progressing) Start: 06/16/22 Expected End: 09/14/22 Gait: Patient will demonstrate ability to ambulate with no evident gait deviations present utilizing no assistive device. (Progressing) Start: 06/16/22 Expected End: 09/14/22 Balance: Patient will improve SLS to >20 sec to improve safety with transfers and stair negotiation. (Progressing) Start: 06/16/22 Expected End: 09/14/22 Functional Outcome Measure: Patient will improve LEFS to >60. (Progressing) Start: 06/16/22 Expected End: 09/14/22 Time Entry Total Treatment Time Start Time: 1630 Malika Gramajo, PT Normal [facility] Progress Note [facility] AT [address] [place] [address] Dept: [phone] Dept PHYSICAL THERAPY TREATMENT NOTE Patient Name: Charley Gutierrez : 2005 Today's Date: 07/02/2022 Subjective General Visit Information General Chart Reviewed: Yes Reason for referral/mechanism of injury: Patient presents today 2 weeks s/p left shoulder anterior labral repair on 04/02/22. He presents with father today who reports this past summer the patient fell and dislocated the shoulder with rollerskating. The shoulder was put back in place, he then discloated the shoulder again during football. Went to the ER, they said it wasnt dislocated and he was released back to play football. He then injured the shoulder again during football. Went to the chiropractor, they did massage and then referred out to Dr. Lu. Dr. Lu then referred to Dr. Johnson. Surgery performed on 04/02/22 to repair left anterior labrum. He presents today donning left shoulder sling, with no post operative complications reported. Just had a follow up with ortho office the other day, sutures were removed. Pain since the surgery comes and goes. He has been compliant with sling use, only icing as needed. He is right hand dominant. Currently requiring assist with all ADL's due to inability to use the LUE. 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 General Comments: Patient followed up with Dr. Johnson and that went well. States strength and motion look good. He is able to get back into lifting weights at a slow cautious speed. Pain Pain Assessment Pain Score: 0 - No pain Treatment Therapeutic Exercise Therapeutic Exercise Activity 2: UBE Activity 2 Comment: Lvl 4 2'/2' (fwd/bkwd) Therapeutic Exercise Acitivity 3: Ball on wall, 4 way Activity 3 Comment: YMB 30x1 ea Therapeutic Exercise Activity 7: Shoulder raises Activity 7 Comment: at wall #3 DB 2x10 flexion and scaption Therapeutic Exercise Activity 8: Push up plus at edge of plinth Activity 8 Comment: 3x10 Therapeutic Exercise Activity 9: Houghstons Activity 9 Comment: 2x10 ea Therapeutic Exercise Activity 10: Wall walks GTB (MEDIA SERVICES DIRECTOR, d/t time) Activity 10 Comment: 2x10 e[address] Assessment PT Assessment PT Assessment: Pt arrived late to PT, so shortened treatment session. Progressing well with scapular stabilization. Fatigue reported with ball on wall stab exercise. No pain with any exercises this visit. Plan Plan PT Plan: add body blade and shoulder taps w/ plank to edge of plinth General/Ortho Patient will improve LUE MMT to 5/5 in all planes to facilitate safe return to sport. (Progressing) Start: 04/16/22 Expected End: 07/16/22 General/Ortho Patient will increase Left shoulder ER AROM to 75 degrees or > to be able to improve joint mobility with ADL's and sporting activities. (Progressing) Start: 06/16/22 Expected End: 07/16/22 Time Entry Total Treatment Time Start Time: 1610 Stop Time: 1625 Time Calculation (min): 15 min PT Therapeutic Procedures Time Entry Therapeutic Exercise Time Entry: 15 Malika Gramajo, JOSÉ MIGUEL [facility] Office Visiton 06-30-2022 Follow-up visit [id number] Charley Gutierrez 2005 M Date Provider Department Center 06/30/2022 [id number] SIGALA [facility] OR None No family history on file Level of Service:51275 [place] POSTOP FOLLOW UP VISIT RELATED TO ORIGINAL PX Reason for Visit and Comments: Post-op [483] - left quadriceps tendon rupture, excision left patella fragment and arthrotomy left knee with irrigation and debridement of knee and open patella fracture Normal [facility] Follow-up visit [id number] Charley Gutierrez 2005 M Date Provider Department [place] 06/30/2022 [id number], RYAN [facility] ORT None No family history on file Level of Service:58397 [place] OFFICE/OUTPATIENT ESTABLISHED LOW [facility] 20-29 MIN Reason for Visit and Comments: Follow-up [887035] - DOS 04/02/2022 Left shoulder anterior labral repair/capsulorrhaphy x 4 anchors [facility] Progress Noteon 06-30-2022 Progress Note [facility] THERAPY AT [address] [place] [address] Dept: [phone] Dept PHYSICAL THERAPY TREATMENT NOTE Patient Name: Charley Gutierrez : 2005 Today's Date: 06/30/2022 Subjective General Visit Information General Chart Reviewed: Yes Reason for referral/mechanism of injury: Patient presents today 2 weeks s/p left shoulder anterior labral repair on 04/02/22. He presents with father today who reports this past summer the patient fell and dislocated the shoulder with rollerskating. The shoulder was put back in place, he then discloated the shoulder again during football. Went to the ER, they said it wasnt dislocated and he was released back to play football. He then injured the shoulder again during football. Went to the chiropractor, they did massage and then referred out to Dr. Lu. Dr. Lu then referred to Dr. Johnson. Surgery performed on 04/02/22 to repair left anterior labrum. He presents today donning left shoulder sling, with no post operative complications reported. Just had a follow up with ortho office the other day, sutures were removed. Pain since the surgery comes and goes. He has been compliant with sling use, only icing as needed. He is right hand dominant. Currently requiring assist with all ADL's due to inability to use the LUE. 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 Family/Caregiver Present: Yes Patient preferences: Post op precautions L knee: WBAT in knee immobilizer, NO ACTIVE EXTENSION, ok to progress knee flexion ROM 20 degrees each week Fall risk: No General Comments: Pt states he saw doctor prior to session and would like clarification if knee extension is allowed after doctor asked pt to perform SLR during his visit. Pt will have another f/u visit with knee surgeon on July 28. Pt guardian also states the doctor put in a new order for physical therapy for the pt. Pt guardian also states f/u for shoulder will be in August or September. Pain Objective Therapeutic Activity Therapeutic Activity 2: Heel Slides with SOS strap Activity 2 Comment: 3x10; 1 set with clinician assist (Pt able to get to 40 degrees with strap) Soft Tissue Mobilization Location: Left knee (swelling management), patellar mobilization Body Position: Supine Joint Mobilization Location: Left knee PROM Body Position: Sitting Comments: assisted knee flexion and PROM from therapist, sitting on edge of plinth and supine (Supine PROM measured at 40 degrees 06/30/22) Modalities Cryotherapy (parameters): ice pack on left knee with plinth elevated in supine 7' Assessment PT Assessment PT Assessment: Pt is progrssing with knee flexion via performing heel slides with SOS strap to 40 degrees this session. Clinician assisted heel slides also were measured to 40 degrees. PROM was performed to increase knee flexion ROM and precautions were followed this visit for no active extension per protocol. STM and ice with elevation were used this session for both pain relief and edema management at this time. Plan Plan PT Plan: Knee: flexion range of 40-60 degrees next visit. Follow up with physician for new order and if new precautions. General/Ortho Patient will report 85% or > return to PLOF. (Progressing) Start: 06/16/22 Expected End: 09/14/22 Patient will report decreased pain at 1/10 or < in left knee to be able to improve tolerance to daily activities and allow for therapy progressions. (Progressing) Start: 06/16/22 Expected End: 09/14/22 Patient will increase ROM of left knee to 0-120 be able to normalize gait mechanics and improve functional mobility. (Progressing) Start: 06/16/22 Expected End: 09/14/22 Patient will increase strength in LLE to 5/5 to be able to ensure safe transfers and return to recreational activities. (Not Addressed) Start: 06/16/22 Expected End: 09/14/22 Gait: Patient will demonstrate ability to ambulate with no evident gait deviations present utilizing no assistive device. (Progressing) Start: 06/16/22 Expected End: 09/14/22 Balance: Patient will improve SLS to >20 sec to improve safety with transfers and stair negotiation. (Progressing) Start: 06/16/22 Expected End: 09/14/22 Functional Outcome Measure: Patient will improve LEFS to >60. (Progressing) Start: 06/16/22 Expected End: 09/14/22 Time Entry Total Treatment Time Start Time: 1623 Stop Time: 1655 Time Calculation (min): 32 min PT Modalities Time Entry Hot/Cold Pack Time Entry: 7 PT Therapeutic Procedures Time Entry Therapeutic Activity Time Entry: 10 Manual Therapy Time Entry: 15 Ce Breen PTA Normal [facility] Progress Note [facility] THERAP[facility] AT [address] [place] [address] Dept: [phone] Dept PHYSICAL THERAPY TREATMENT NOTE Patient Name: Charley Gutierrez : 2005 Today's Date: 06/30/2022 Subjective General Visit Information General Chart Reviewed: Yes Reason for referral/mechanism of injury: Patient presents today 2 weeks s/p left shoulder anterior labral repair on 04/02/22. He presents with father today who reports this past summer the patient fell and dislocated the shoulder with rollerskating. The shoulder was put back in place, he then discloated the shoulder again during football. Went to the ER, they said it wasnt dislocated and he was released back to play football. He then injured the shoulder again during football. Went to the chiropractor, they did massage and then referred out to Dr. Lu. Dr. Lu then referred to Dr. Johnson. Surgery performed on 04/02/22 to repair left anterior labrum. He presents today donning left shoulder sling, with no post operative complications reported. Just had a follow up with ortho office the other day, sutures were removed. Pain since the surgery comes and goes. He has been compliant with sling use, only icing as needed. He is right hand dominant. Currently requiring assist with all ADL's due to inability to use the LUE. 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 Family/Caregiver Present: No Patient preferences: Post op precautions L knee: WBAT in knee immobilizer, NO ACTIVE EXTENSION, ok to progress knee flexion ROM 20 degrees each week Fall risk: No General Comments: No complaints with shoulder this visit. Pt states he had doctors appointments for both shoulder and knee stating that PT could focus more on knee rather than shoulder. Pain none Objective Therapeutic Exercise # of Activities: 11 Therapeutic Exercise Activity 6: Wall Ball 4 way RMB Activity 6 Comment: 30x1 ea Therapeutic Exercise Activity 8: Counter Pushup plus Activity 8 Comment: 3x10 Therapeutic Exercise Activity 9: Houghstons Activity 9 Comment: 2x10 ea Therapeutic Exercise Activity 10: Wall walks GTB Activity 10 Comment: 2x10 e[address] Therapeutic Exercise Activity 11: UBE Activity 11 Comment: lvl 4 3 fwd/2 retro Assessment PT Assessment PT Assessment: Pt is progressing with shoulder strengthening via performing houstons and wall walks with good tolerance and required min. vc for correct form. Pt tolerated session well. Plan Plan PT Plan: Shoulder: progress strengthening as tolerated per protocol. General/Ortho Patient will improve LUE MMT to 5/5 in all planes to facilitate safe return to sport. (Progressing) Start: 04/16/22 Expected End: 07/16/22 General/Ortho Patient will increase Left shoulder ER AROM to 75 degrees or > to be able to improve joint mobility with ADL's and sporting activities. (Progressing) Start: 06/16/22 Expected End: 07/16/22 Time Entry Total Treatment Time Start Time: 1601 Stop Time: 1624 Time Calculation (min): 23 min PT Therapeutic Procedures Time Entry Therapeutic Exercise Time Entry: 23 Ce Breen PTA Normal [facility] Progress Note Subjective: Charley is approximately 6wks from ORIF left quadriceps tendon rupture, excision left patella fragment and arthrotomy left knee with irrigation and debridement of knee and open patella fracture. His surgery was on 05/10/22. Pain is mild. He denies numbness or tingling since surgery. He has no new complaints. Review of Systems Objective: BP (!) 136/80 Pulse (!) 97 Temp 37.2 ?C (98.9 ?F) Ht 6' (1.829 m) Wt 160 lb (72.6 kg) BMI 21.70 kg/m? Incision is healing appropriately without concern for infection. There is no drainage or erythema. Swelling: moderate. Sensation is intact to all distal dermatomes. Skin is warm and dry with brisk capillary refill to all digits in the surgical extremity. Charley is not able to perform a straight leg. Strength 1/5. Range of motion shows knee flexion of 20 and extension of 0. Assessment 1. Quadriceps tendon rupture, left, subsequent encounter Plan Orders Placed This Encounter Procedures Ambulatory referral to Physical Therapy He is somewhat behind with his range of motion and his quad is extremely weak. PT orders given. We will progress knee flexion as tolerated and add active extension and strengthening. Once strength is approximately 75% of the normal leg we will allow weight bearing without the brace. Charley will return in 4 wks. Electronically signed by Jung Sigala M.D. 06/30/2022 at 10:18 AM. Normal [facility] Progress Note [facility] [address] [facility] [address] Dept: [phone] Dept 06/30/2022 Chief Complaint Patient presents with Follow-up DOS 04/02/2022 Left shoulder anterior labral repair/capsulorrhaphy x 4 anchors SUBJECTIVE Charley is approximately 12.5 weeks s/p left shoulder anterior labral repair/capsulorrhaphy x 4 anchors. Pain is nonexistent. He is no longer taking anything for pain. He denies drainage from his incisions. He denies significant complaints other than the expected amount of pain. The patient denies fevers, chills, or night sweats. Physical therapy is at [facility] two days a week. He reports that he is splitting his therapy in half with regards to his left knee and left shoulder. He sees Dr. Sigala later this morning for postop check for his knee. Sane score: 85 OBJECTIVE BP (!) 122/84 Ht 6' (1.829 m) Wt 160 lb (72.6 kg) BMI 21.70 kg/m? Ortho Exam Focused Exam of the Left Upper Extremity Skin: appropriately healed incision(s) without evidence of infection Edema: no evidence of edema Palpation: non tender to palpation throughout. Negative homans signs bilaterally. ROM: full functional ROM of the elbow, wrist, and hand ROM: RIGHT LEFT Forward Elevation AROM 170? PROM Same AROM 160? PROM 170? External rotation at 0 degrees of Adduction AROM 60? PROM Same AROM 30? PROM Same External rotation at 90 degrees of Abduction AROM 80? PROM Same AROM 70? PROM Same Internal Rotation at 90 degrees of Abduction AROM 80? PROM Same AROM 70? PROM Same Internal Rotation Low Thoracic Low Thoracic Stability: no evidence of joint instabilities. Negative apprehension Motor: Intact in the hand - able to fire AIN, PIN, and Ulnar nerves Shoulder Motor: RIGHT LEFT Supraspinatus Full strength Full strength Infraspinatus Full strength Full strength Subscapularis Full strength Full strength Sensation: normal in the median, ulnar, and radial nerve distributions Perfusion: Brisk capillary refill in all 5 digits IMAGING NONE ASSESSMENT Diagnosis Plan 1. Instability of left shoulder joint 2. Tear of left glenoid labrum, subsequent encounter PLAN Charley is approximately 3-month status post left shoulder labral repair. Overall he is happy with his progress. He has improving range of motion and strength on exam. He understands he is still healing and not cleared for full or unrestricted activities. He will progress per PT protocol. He will continue with follow-up and therapy with Dr. Sigala for his left knee. I would like to see him back 3 months to check his progress and all his questions were answered otherwise. Immobilization: NO immobilization required at this point - FULL ROM encouraged without restrictions Weight Bearing: Progress per protocol Rehabilitation: PT continue to follow protocol. Follow-up: Charley will followup with me in 3 months. He knows to call the office with any questions or concerns in the interim. Future Imaging: NONE Jamilah Johnson MD Orthopaedic Sports Medicine [facility] Department of Orthopaedics and Sports Medicine 06/30/2022 at 9:05 AM (Please note that portions of this note may have been completed with a voice recognition program. Efforts were made to edit the dictations but occasionally words are mis-transcribed.) Normal [facility] Progress Noteon 06-25-2022 Progress Note [facility] THER[facility] AT [address] [place] [address] Dept: [phone] Dept PHYSICAL THERAPY TREATMENT NOTE Patient Name: Charley Gutierrez : 2005 Today's Date: 06/25/2022 Subjective General Visit Information General Chart Reviewed: Yes Reason for referral/mechanism of injury: Patient presents today 2 weeks s/p left shoulder anterior labral repair on 04/02/22. He presents with father today who reports this past summer the patient fell and dislocated the shoulder with rollerskating. The shoulder was put back in place, he then discloated the shoulder again during football. Went to the ER, they said it wasnt dislocated and he was released back to play football. He then injured the shoulder again during football. Went to the chiropractor, they did massage and then referred out to Dr. Lu. Dr. Lu then referred to Dr. Johnson. Surgery performed on 04/02/22 to repair left anterior labrum. He presents today donning left shoulder sling, with no post operative complications reported. Just had a follow up with ortho office the other day, sutures were removed. Pain since the surgery comes and goes. He has been compliant with sling use, only icing as needed. He is right hand dominant. Currently requiring assist with all ADL's due to inability to use the LUE. 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 Family/Caregiver Present: Yes Patient preferences: Post op precautions L knee: WBAT in knee immobilizer, NO ACTIVE EXTENSION, ok to progress knee flexion ROM 20 degrees each week General Comments: Pain mostly a 1/10 in the left knee, swelling still present. Has not been elevating it. Has been mostly bending it at home seated vs. lying down. Pain Pain Assessment Pain Score: 1 Treatment Soft Tissue Mobilization Location: Left knee (swelling management), patellar mobilization Body Position: Supine Joint Mobilization Location: Left knee PROM Body Position: Sitting Comments: assisted knee flexion and PROM from therapist, sitting on edge of plinth and supine, measured 30 degrees Modalities Cryotherapy (parameters): ice pack on left knee with plinth elevated in supine 10' Assessment PT Assessment PT Assessment: Knee treatment emphasis on progressing per protocol to 40 degrees of knee flexion. Able to achieve 30 degrees this visit. Still having moderate swelling and poor compliance noted from both patient and mom for at home swelling management. STM this visit included for swelling and soft tissue restrictions. Pain and swelling currently limiting mobility during manual knee flexion PROM. Plan Plan PT Plan: knee: progress 40-60 degrees of knee flexion next visit still assisting with knee extension General/Ortho Patient will report 85% or > return to PLOF. (Progressing) Start: 06/16/22 Expected End: 09/14/22 Patient will report decreased pain at 1/10 or < in left knee to be able to improve tolerance to daily activities and allow for therapy progressions. (Progressing) Start: 06/16/22 Expected End: 09/14/22 Patient will increase ROM of left knee to 0-120 be able to normalize gait mechanics and improve functional mobility. (Progressing) Start: 06/16/22 Expected End: 09/14/22 Patient will increase strength in LLE to 5/5 to be able to ensure safe transfers and return to recreational activities. (Progressing) Start: 06/16/22 Expected End: 09/14/22 Gait: Patient will demonstrate ability to ambulate with no evident gait deviations present utilizing no assistive device. (Progressing) Start: 06/16/22 Expected End: 09/14/22 Balance: Patient will improve SLS to >20 sec to improve safety with transfers and stair negotiation. (Progressing) Start: 06/16/22 Expected End: 09/14/22 Functional Outcome Measure: Patient will improve LEFS to >60. (Progressing) Start: 06/16/22 Expected End: 09/14/22 Time Entry Total Treatment Time Start Time: 1608 Stop Time: 1640 Time Calculation (min): 32 min PT Modalities Time Entry Hot/Cold Pack Time Entry: 10 (on plinth w/ legs elevated above heart) Malika Ashwin, PT Normal [facility] Progress Note [facility] THER[facility] AT [place] [address] [place] [address] Dept: [phone] Dept PHYSICAL THERAPY TREATMENT NOTE Patient Name: Charley Gutierrez : 2005 Today's Date: 06/25/2022 Subjective General Visit Information General Chart Reviewed: Yes Reason for referral/mechanism of injury: Patient presents today 2 weeks s/p left shoulder anterior labral repair on 04/02/22. He presents with father today who reports this past summer the patient fell and dislocated the shoulder with rollerskating. The shoulder was put back in place, he then discloated the shoulder again during football. Went to the ER, they said it wasnt dislocated and he was released back to play football. He then injured the shoulder again during football. Went to the chiropractor, they did massage and then referred out to Dr. uL. Dr. Lu then referred to Dr. Johnson. Surgery performed on 04/02/22 to repair left anterior labrum. He presents today donning left shoulder sling, with no post operative complications reported. Just had a follow up with ortho office the other day, sutures were removed. Pain since the surgery comes and goes. He has been compliant with sling use, only icing as needed. He is right hand dominant. Currently requiring assist with all ADL's due to inability to use the LUE. 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 General Comments: No complaints with the shoulder. States exercises have been feeling good, no pain. Pain Pain Assessment Pain Score: 0 - No pain Treatment Therapeutic Exercise Therapeutic Exercise Activity 5: Cable column Activity 5 Comment: standing rows #25 2x10, SAPD #35 2x10; ER #10 2x10 Therapeutic Exercise Activity 6: Wall Ball 4 way GMB Activity 6 Comment: 30x1 ea Therapeutic Exercise Activity 7: Shoulder raises Activity 7 Comment: at wall #3 DB 1x10 flexion and scaption Therapeutic Exercise Activity 8: Counter Pushup plus (MEDIA SERVICES DIRECTOR) Activity 8 Comment: 3x10 Assessment PT Assessment PT Assessment: Verbal and tactile Cueing required for proper scapular setting and maintenance during strengthening exercises. Decreased weight with rows and SAPD with improved form noted. Session focused on improve posterior scapular stab and cueing for improved posture. Plan Plan PT Plan: shoulder: add prone Houstons General/Ortho Patient will improve LUE MMT to 5/5 in all planes to facilitate safe return to sport. (Progressing) Start: 04/16/22 Expected End: 07/16/22 General/Ortho Patient will increase Left shoulder ER AROM to 75 degrees or > to be able to improve joint mobility with ADL's and sporting activities. (Progressing) Start: 06/16/22 Expected End: 07/16/22 Time Entry Total Treatment Time Start Time: 1635 Stop Time: 1655 Time Calculation (min): 20 min Malika Gramajo, PT Normal [facility] Progress Noteon 06-23-2022 Progress Note [facility] THERAPY AT [address] [place] [address] Dept: [phone] Dept PHYSICAL THERAPY TREATMENT NOTE Patient Name: Charley Gutierrez : 2005 Today's Date: 06/23/2022 Subjective General Visit Information General Chart Reviewed: Yes Reason for referral/mechanism of injury: Patient presents today 2 weeks s/p left shoulder anterior labral repair on 04/02/22. He presents with father today who reports this past summer the patient fell and dislocated the shoulder with rollerskating. The shoulder was put back in place, he then discloated the shoulder again during football. Went to the ER, they said it wasnt dislocated and he was released back to play football. He then injured the shoulder again during football. Went to the chiropractor, they did massage and then referred out to Dr. Lu. Dr. Lu then referred to Dr. Johnson. Surgery performed on 04/02/22 to repair left anterior labrum. He presents today donning left shoulder sling, with no post operative complications reported. Just had a follow up with ortho office the other day, sutures were removed. Pain since the surgery comes and goes. He has been compliant with sling use, only icing as needed. He is right hand dominant. Currently requiring assist with all ADL's due to inability to use the LUE. 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 Family/Caregiver Present: Yes Patient preferences: Post op precautions L knee: WBAT in knee immobilizer, NO ACTIVE EXTENSION, ok to progress knee flexion ROM 20 degrees each week Fall risk: No General Comments: Pt reports that he still has difficulty performing heel slides, but is getting better. Objective Therapeutic Activity # of Activities: 2 Therapeutic Activity 2: Heel Slides with SOS strap Activity 2 Comment: 3x10; 1 set with clinician assist Soft Tissue Mobilization Location: Left knee (swelling management), patellar mobilization Body Position: Supine Joint Mobilization Location: Left knee PROM Body Position: Prone Comments: Up to 40 degrees this session 06/23/22 (Increase by 20 degrees every WEEK); Pt able to perform up to 35 this session. Assessment PT Assessment PT Assessment: Pt session focused on knee flexion ROM per protocol. Per protocol, pt is allowed 20 more degrees this week. Pt was able to perform knee flexion with heel slides with no clinican assist up to 35 degrees. Clinician educated on protocol for both knee and shoulder at this time. Protocol of the shoulder was printed and reviewed this session as well. Plan Plan PT Plan: Quad: Up to 40 degrees of knee flexion next session. NO ACTIVE EXTENSION. General/Ortho Patient will report 85% or > return to PLOF. (Progressing) Start: 06/16/22 Expected End: 09/14/22 Patient will report decreased pain at 1/10 or < in left knee to be able to improve tolerance to daily activities and allow for therapy progressions. (Progressing) Start: 06/16/22 Expected End: 09/14/22 Patient will increase ROM of left knee to 0-120 be able to normalize gait mechanics and improve functional mobility. (Progressing) Start: 06/16/22 Expected End: 09/14/22 Patient will increase strength in LLE to 5/5 to be able to ensure safe transfers and return to recreational activities. (Progressing) Start: 06/16/22 Expected End: 09/14/22 Gait: Patient will demonstrate ability to ambulate with no evident gait deviations present utilizing no assistive device. (Progressing) Start: 06/16/22 Expected End: 09/14/22 Balance: Patient will improve SLS to >20 sec to improve safety with transfers and stair negotiation. (Progressing) Start: 06/16/22 Expected End: 09/14/22 Functional Outcome Measure: Patient will improve LEFS to >60. (Progressing) Start: 06/16/22 Expected End: 09/14/22 Time Entry Total Treatment Time Start Time: 1626 Stop Time: 1658 Time Calculation (min): 32 min PT Therapeutic Procedures Time Entry Manual Therapy Time Entry: 18 Therapeutic Activity Time Entry: 10 Ce Breen, KULDEEP Normal [facility] Progress Note [facility] THERAPY AT [address] [place] [address] Dept: [phone] Dept PHYSICAL THERAPY TREATMENT NOTE Patient Name: Charley Gutierrez : 2005 Today's Date: 06/23/2022 Subjective General Visit Information General Chart Reviewed: Yes Reason for referral/mechanism of injury: Patient presents today 2 weeks s/p left shoulder anterior labral repair on 04/02/22. He presents with father today who reports this past summer the patient fell and dislocated the shoulder with rollerskating. The shoulder was put back in place, he then discloated the shoulder again during football. Went to the ER, they said it wasnt dislocated and he was released back to play football. He then injured the shoulder again during football. Went to the chiropractor, they did massage and then referred out to Dr. Lu. Dr. Lu then referred to Dr. Johnson. Surgery performed on 04/02/22 to repair left anterior labrum. He presents today donning left shoulder sling, with no post operative complications reported. Just had a follow up with ortho office the other day, sutures were removed. Pain since the surgery comes and goes. He has been compliant with sling use, only icing as needed. He is right hand dominant. Currently requiring assist with all ADL's due to inability to use the LUE. 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 Family/Caregiver Present: Yes Patient preferences: Post op precautions L knee: WBAT in knee immobilizer, NO ACTIVE EXTENSION, ok to progress knee flexion ROM 20 degrees each week Fall risk: No General Comments: Pt states he was working out and has increased soreness after performing dumbbell bench press with 40 pound weights and lat pulldown machine on Wednesday. Objective Therapeutic Exercise # of Activities: 8 Therapeutic Exercise Activity 5: Cable column Activity 5 Comment: seated rows and SAPD #40 2x10; ER #10 2x10 Therapeutic Exercise Activity 6: Wall Ball 4 way GMB Activity 6 Comment: 2x30' ea Therapeutic Exercise Activity 7: Bicep 3 way Activity 7 Comment: #5 2x10 ea (plan on increased weight net visit) Therapeutic Exercise Activity 8: Counter Pushup plus Activity 8 Comment: 3x10 Assessment PT Assessment PT Assessment: Pt session focused on UE strenthening per protocol. Pt is progressing via increasing weight on he cable column and adding shoulder stabilization activities with good tolerance. Pt was decently challenged this session. Plan Plan PT Plan: Shoulder: Increase Bicep 3 way weight next session. Progress as tolerated. General/Ortho Patient will improve LUE MMT to 5/5 in all planes to facilitate safe return to sport. (Progressing) Start: 04/16/22 Expected End: 07/16/22 General/Ortho Patient will increase Left shoulder ER AROM to 75 degrees or > to be able to improve joint mobility with ADL's and sporting activities. (Progressing) Start: 06/16/22 Expected End: 07/16/22 Time Entry Total Treatment Time Start Time: 1601 Stop Time: 1626 Time Calculation (min): 25 min PT Therapeutic Procedures Time Entry Therapeutic Exercise Time Entry: 25 Ce Breen PTA [facility] Progress Noteon 06-18-2022 Progress Note [facility] THERAPY AT [address] [place] [address] Dept: [phone] Dept PHYSICAL THERAPY TREATMENT NOTE Patient Name: Charley Gutierrez : 2005 Today's Date: 06/18/2022 Subjective General Visit Information General Chart Reviewed: Yes Reason for referral/mechanism of injury: Patient presents today 2 weeks s/p left shoulder anterior labral repair on 04/02/22. He presents with father today who reports this past summer the patient fell and dislocated the shoulder with rollerskating. The shoulder was put back in place, he then discloated the shoulder again during football. Went to the ER, they said it wasnt dislocated and he was released back to play football. He then injured the shoulder again during football. Went to the chiropractor, they did massage and then referred out to Dr. Lu. Dr. Lu then referred to Dr. Johnson. Surgery performed on 04/02/22 to repair left anterior labrum. He presents today donning left shoulder sling, with no post operative complications reported. Just had a follow up with ortho office the other day, sutures were removed. Pain since the surgery comes and goes. He has been compliant with sling use, only icing as needed. He is right hand dominant. Currently requiring assist with all ADL's due to inability to use the LUE. 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 Family/Caregiver Present: Yes Patient preferences: Post op precautions L knee: WBAT in knee immobilizer, NO ACTIVE EXTENSION, ok to progress knee flexion ROM 20 degrees each week General Comments: Pt denies pain in the knee, but states soreness after walking around in school today. Pt states he had school Wednesday, took a break yesterday and was back in school today. Objective Therapeutic Exercise # of Activities: 2 Therapeutic Exercise Activity 2: HEP review Activity 2 Comment: s/l abd, prone extension,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 all ADL's due to inability to use the LUE. 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 Family/Caregiver Present: No General Comments: Pt denies pain or soreness prior to session. States he continue HEP. 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 Pt still in phase 1 of protocol, but able to increase passive ER up to 30deg, passive fwd flexion as tolerated, and IR up to belt line; pt tolerates flexion ~100deg & ER to 22deg. No pain, except end-range pain for ER first few reps. Plan to progress to week 5 of protocol 04/30/22 or later if not tolerable. Instructed pt in cradle pendulums and recommended ice at home due to progression. Reason to continue therapy: to achieve goals and safe rehab post op. Plan PT Plan: Continue rehab L shoulder per protocol. May progress to week 5 of protocol 04/30/22 (week 1 of protocol begins DOS). Active Patient will demo left shoulder flexion AROM to 150 degrees or > to improve mobility with dressing and reaching activities. (Progressing) Start: 04/16/22 Expected End: 07/15/22 Patient will report 0-1/10 pain in left shoulder with activity/movement to improve tolerance to daily activities. (Progressing) Start: 04/16/22 Expected End: 07/15/22 Patient will increase left shoulder functional IR to T10 or > to improve mobility with dressing and bathing. (Progressing) Start: 04/16/22 Expected End: 07/15/22 Patient will improve left shoulder functional ER to T2 or > to improve mobility with bathing. (Progressing) Start: 04/16/22 Expected End: 07/15/22 Patient will improve LUE MMT to 5/5 in all planes to facilitate safe return to sport. (Progressing) Start: 04/16/22 Expected End: 07/15/22 Patient will improve DASH score to <20 to demo improved function. (Progressing) Start: 04/16/22 Expected End: 07/15/22 Time Entry Total Treatment Time Start Time: 1635 Stop Time: 1702 Time Calculation (min): 27 min PT Therapeutic Procedures Time Entry Manual Therapy Time Entry: 27 Edinson Gunn, PT [facility] Progress Noteon 04-23-2022 Progress Note [facility] PT [address] [facility] [phone] PHYSICAL THERAPY TREATMENT NOTE Patient Name: Charley Gutierrez : 2005 Today's Date: 04/23/2022 Visit Info General Visit Information General Chart Reviewed: Yes Reason for referral/mechanism of injury: Patient presents today 2 weeks s/p left shoulder anterior labral repair on 04/02/22. He presents with father today who reports this past summer the patient fell and dislocated the shoulder with rollerskating. The shoulder was put back in place, he then discloated the shoulder again during football. Went to the ER, they said it wasnt dislocated and he was released back to play football. He then injured the shoulder again during football. Went to the chiropractor, they did massage and then referred out to Dr. Lu. Dr. Lu then referred to Dr. Johnson. Surgery performed on 04/02/22 to repair left anterior labrum. He presents today donning left shoulder sling, with no post operative complications reported. Just had a follow up with ortho office the other day, sutures were removed. Pain since the surgery comes and goes. He has been compliant with sling use, only icing as needed. He is right hand dominant. Currently requiring assist with all ADL's due to inability to use the LUE. 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 Family/Caregiver Present: Yes Fall risk: No General Comments: Pt denies pain or soreness prior to session. Patient's Stated Goal: wants to go back to playing football Pain Treatment Joint Mobilization Location: Left shoulder PROM (per protocol restrictions) Flex to 90, ER to 0 Body Position: Supine Comments: with SAD and grade 1 oscillations for pain relief and joint mobility Plan & Recommendations PT Assessment PT Assessment: Pt mainor focused on PROM per protocol. Pt walked into session with sling. PROM was performed with pt under protocol with no IR and ER to 0 degrees. Pt exhibits muscle guarding during PROM and required min. verbal and tactile cuing to relax the UE. Pt will need to continue therapy to progress towards goals set by the PT. Plan Therapeutic Contents: Neuromsucular re-education, Therapeutic exercise, Home exercise program, Therapeutic activities, Manual therapy techniques, Modalities as needed PT Plan: continue with manual PROM per protocol: supine ER to 0 degrees (0 abduction), and flexion to 90. NO INTERNAL ROTATION PT Frequency: 2 times per week Duration: 12 weeks Active Patient will demo left shoulder flexion AROM to 150 degrees or > to improve mobility with dressing and reaching activities. (Progressing) Start: 04/16/22 Expected End: 07/15/22 Patient will report 0-1/10 pain in left shoulder with activity/movement to improve tolerance to daily activities. (Progressing) Start: 04/16/22 Expected End: 07/15/22 Patient will increase left shoulder functional IR to T10 or > to improve mobility with dressing and bathing. (Not Addressed) Start: 04/16/22 Expected End: 07/15/22 Patient will improve left shoulder functional ER to T2 or > to improve mobility with bathing. (Not Addressed) Start: 04/16/22 Expected End: 07/15/22 Patient will improve LUE MMT to 5/5 in all planes to facilitate safe return to sport. (Not Addressed) Start: 04/16/22 Expected End: 07/15/22 Patient will improve DASH score to <20 to demo improved function. (Not Addressed) Start: 04/16/22 Expected End: 07/15/22 Time Entry Total Treatment Time Start Time: 1641 Stop Time: 1710 Time Calculation (min): 29 min PT Therapeutic Procedures Time Entry Manual Therapy Time Entry: 25 Ce Breen PTA [facility] Progress Noteon 04-16-2022 Progress Note [facility] [address] [facility] [phone] PHYSICAL THERAPY EVALUATION Patient Name: Charley Gutierrez : 2005 Today's Date: 04/16/2022 Visit Info / [facility] General Visit Information General Chart Reviewed: Yes Have you been experiencing any anxiety, depression, thoughts of self-harm, or suicidal thoughts?: No Reason for referral/mechanism of injury: Patient presents today 2 weeks s/p left shoulder anterior labral repair on 04/02/22. He presents with father today who reports this past summer the patient fell and dislocated the shoulder with rollerskating. The shoulder was put back in place, he then discloated the shoulder again during football. Went to the ER, they said it wasnt dislocated and he was released back to play football. He then injured the shoulder again during football. Went to the chiropractor, they did massage and then referred out to Dr. Lu. Dr. Lu then referred to Dr. Johnson. Surgery performed on 04/02/22 to repair left anterior labrum. He presents today donning left shoulder sling, with no post operative complications reported. Just had a follow up with ortho office the other day, sutures were removed. Pain since the surgery comes and goes. He has been compliant with sling use, only icing as needed. He is right hand dominant. Currently requiring assist with all ADL's due to inability to use the LUE. 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 Family/Caregiver Present: Yes Fall risk: No Patient's Stated Goal: wants to go back to playing football Pain Pain Assessment Pain Assessment: 0-10 Pain Score: 0 - No pain (At worst: 7/10 (w/ movement)) Pain Type: Surgical pain Pain Location: Shoulder Pain Orientation: Left Pain Descriptors: Sharp, Throbbing Patient's Stated Pain Goal: No pain Prior Level of Function Prior Function ADL Assistance: Independent Leisure: Hobbies - Yes (comment) (football) Precautions Precautions Post-Surgical Precautions: Week 1-3: NO INTERNAL ROTATION, Supine ER-0 degrees, Flex-90 degrees. Week 4: Supine ER-30 degrees, Flex-full Other: See Dr. Johnson anterior labral repair protocol Assessment General Assessments N/A Functional Assessments Currently requiring assist from family members with ADL's, unable to use LUE per protocol and post operative restrictions. Extremity/Ortho Assessments Shoulder R Shoulder ROM/Strength AROM PROM Strength Shoulder Flexion (WFL in all planes) 5/5 Shoulder Extension (WFL in all planes) 5/5 Shoulder ABduction (WFL in all planes) 5/5 Shoulder Int Rotation (WFL in all planes) 5/5 Shoulder Ext Rotation (WFL in all planes) 5/5 Shoulder Horiz ABduction Shoulder Horiz ADduction L Shoulder Observations L Shoulder Posture: Rounded shoulder L Shoulder Observation Comment: Left shoulder surgical incisions healing well, no evident signs of infection present L Shoulder ROM/Strength AROM PROM Strength Shoulder Flexion 75 Shoulder Extension Shoulder ABduction Shoulder Int Rotation Shoulder Ext Rotation 0 (at 0 degrees of abduction) Shoulder Horiz ABduction Shoulder Horiz ADduction Elbow R Elbow ROM/Strength AROM PROM Strength Elbow Flexion 5/5 Elbow Extension 5/5 Elbow Supination Elbow Pronation Outcome Measures Outcome Scores QuickDASH Total Score: 46 QuickDASH Disability/Symptom Score: 79.55 % Apley's Scratch Test Score R Functional IR: T7 R Functional ER: T4 Treatment Joint Mobilization Location: Left shoulder PROM (per protocol restrictions) Flex to 90, ER to 0 Body Position: Supine Comments: with SAD and grade 1 oscillations for pain relief and joint mobility Plan & Recommendations PT Assessment PT Assessment: Patient is a 16 y/o male who presents s/p left shoulder anterior labral repair on 04/02/22, currently 2 weeks out. Upon assessment today, he demonstrates s/s consistent with post operative status including pain and limitations in LUE AROM, strength, and functional use. He would benefit from skilled therapy to address deficits and facilitate return to PLOF. Condition is currently evolving due to post operative status and healing phases. PT Assessment Results: Decreased strength, Decreased mobility, Pain, Decreased range of motion, Orthopedic restrictions Body Systems Affected: Musculoskeletal Prognosis: Good Clinical Presentation: Evolving clinical presentation with changing clinical characteristics Plan Therapeutic Contents: Neuromsucular re-education, Therapeutic exercise, Home exercise program, Therapeutic activities, Manual therapy techniques, Modalities as needed PT Plan: continue with manual PROM per protocol: supine ER to 0 degrees (0 abduction), and flexion to 90. NO INTERNAL ROTATION PT Frequency: 2 times per week Duration: 12 weeks Active Patient will demo left shoulder flexion AROM to (more content not included)... [facility] Office Visiton 04-14-2022 Follow-up visit [id number] Charley Gutierrez 2005 M Date Provider Department Center 04/14/2022 [id number] KUMAR [facility] ORT None No family history on file Level of Service:66565 [place] POSTOP FOLLOW UP VISIT RELATED TO ORIGINAL PX Reason for Visit and Comments: Post-op [483] - Left shoulder diagnosis arthroscopy and anterior labral repair/Capsulorrhaphy on 04/02/22 [facility] Progress Noteon 04-14-2022 Progress Note Subjective: Charley is approximately 12 days s/p Left shoulder diagnosis arthroscopy and anterior labral repair/Capsulorrhaphy x [address] Johnson on 04/02/22. Here with his father today. Pain is minimal. Pt is taking 1/2 Percocet for pain and not on a schedule, weaning down. He returned to school yesterday, asking for a note for excuse to cover his time missed for surgery recovery and also today's appt. He denies significant complaints other than the expected amount of pain. PT is scheduled for [place] to start on 04/16. Objective: BP 110/68 Ht 6' (1.829 m) Wt 170 lb (77.1 kg) BMI 23.06 kg/m? Inspection of the left shoulder Incision: healing appropriately, sutures removed by MA today, no dressing needed. Erythema: No Swelling: No Effusion: No Calf pain or tenderness: No Appropriate, or minimal pain to palpation over bony prominences of the shoulder girdle Sensation intact C5-T1, motor 5/5 deltoid, biceps, triceps, EPL, FDP, and Dorsal interossei, There is a Palpable radial pulse. Pain with testing is appropriate for post operative stage. ROM: SURGICAL ARM Forward Elevation PROM 60? Abduction PROM did not test External Rotation PROM Neutral Internal Rotation not tested today Strength: firing deltoid appropriately, no significant weakness appreciated with with motor testing that is not expected at this time The contralateral shoulder is negative for any pertinent positives and was examined for a baseline to compare to the injured side. Imaging: No films were taken for this visit Operative note and arthroscopic intra-operative photos reviewed in detail today with patient and family present. I believe all questions were answered and patient has a better understanding of surgery intervention performed. Assessment Diagnosis Plan 1. Instability of left shoulder joint 2. Tear of left glenoid labrum, subsequent encounter Charley is a 16 y.o. male presents for his postop visit s/p the above mentioned procedure, progressing appropriately with pain control, physical therapy, weightbearing status, and sling compliance. Plan Charley is doing well overall, pain is well controlled and he does not have any interest in more narcotics, has some leftover if he needs for any severe pain. He has returned to school and note was given today to cover his interval absences. From now until the next visit, the goals will be to continue pendulums and active wrist and elbow ROM, start passive ROM with PT later this week (I demonstrated passive seated forward flexion today in office and pt demonstrated understanding as well, possibly doing it with help from family member or friend at home). Sling for 6 weeks total. We discussed weaning process. I would like Charley to return to clinic in 4 weeks. Future imaging is not necessary at this time Charley knows to call the office with any questions or concerns in the interim. Sutures were removed in office today. no dressing applied to left shoulder. Patient tolerated well with no concerns. Completed by: LEANNE Electronically signed by Lorelei Kumar PA-C [facility] Department of Orthopaedics and Sports Medicine 04/14/2022 at 9:36 AM. Normal [facility] EDGAR STUDIO 3on [facility] Work Phone: Radiology Study observation (narrative) [facility] Work Phone: CR Shoulder 2+ Views Lefton 03-17-2022 CR Shoulder 2+ Views Left Patient Name: CHARLEY GUTIERREZ Diagnostic Radiology ACCESSION EXAM DATE/TIME PROCEDURE ORDERING PROVIDER [id number] 03/17/2022 09:47 EDT CR Shoulder 2+ Views ISIDRO KUMAR, Chavez JUAN CPT code 87063 Reason For Exam (CR Shoulder 2+ Views Left) Left shoulder pain Report LEFT SHOULDER CLINICAL INDICATION: Left shoulder pain Four views of the left shoulder were obtained. COMPARISON: None. FINDINGS: No fracture or dislocation of the left shoulder is identified. There is no abnormal soft tissue swelling. The left acromioclavicular and glenohumeral joints appear grossly normal. IMPRESSION: Unremarkable plain films of the left shoulder. Report Dictated on Final Dictated: 03/17/2022 4:33 pm Dictating Physician: MD OSBORN JONATHAN R Signed Date and Time: 03/17/2022 4:33 pm Signed by: MD OSBORN JONATHAN R Transcribed Date and Time: 03/17/2022 4:33 [facility] XR Shoulder Left 2 VWon 10- Patient Name: CHARLEY GUTIERREZ Diagnostic Radiology ACCESSION EXAM DATE/TIME PROCEDURE ORDERING PROVIDER [id number] 03/17/2022 09:47 EDT CR Shoulder 2+ Views OGORZOLKA, PA-C, Left LORELEI CPT code 51686 Reason For Exam (CR Shoulder 2+ Views Left) Left shoulder pain Report LEFT SHOULDER CLINICAL INDICATION: Left shoulder pain Four views of the left shoulder were obtained. COMPARISON: None. FINDINGS: No fracture or dislocation of the left shoulder is identified. There is no abnormal soft tissue swelling. The left acromioclavicular and glenohumeral joints appear grossly normal. IMPRESSION: Unremarkable plain films of the left shoulder. Report Dictated on --- Final --- Dictated: 03/17/2022 4:33 pm Dictating Physician: MD OSBORN JONATHAN R Signed Date and Time: 03/17/2022 4:33 pm Signed by: MD OSBORN JONATHAN R Transcribed Date and Time: 03/17/2022 4:33 [facility] Abdullahi Osborn MD - 03/17/2022 Patient Name: CHARLEY GUTIERREZ Diagnostic Radiology ACCESSION EXAM DATE/TIME PROCEDURE ORDERING PROVIDER [id number] 03/17/2022 09:47 EDT CR Shoulder 2+ Views OGORZOLKA, PA-C, Left LORELEI CPT code 49244 Reason For Exam (CR Shoulder 2+ Views Left) Left shoulder pain Report LEFT SHOULDER CLINICAL INDICATION: Left shoulder pain Four views of the left shoulder were obtained. COMPARISON: None. FINDINGS: No fracture or dislocation of the left shoulder is identified. There is no abnormal soft tissue swelling. The left acromioclavicular and glenohumeral joints appear grossly normal. IMPRESSION: Unremarkable plain films of the left shoulder. Report Dictated on --- Final --- Dictated: 03/17/2022 4:33 pm Dictating Physician: MD OSBORN JONATHAN R Signed Date and Time: 03/17/2022 4:33 pm Signed by: MD OSBORN JONATHAN R Transcribed Date and Time: 03/17/2022 4:33 [facility] Work Phone: Radiology Study observation (narrative) [employer] Work Phone: XR Shoulder Left 2 VWOrdered By: Abdullahi Osborn on 03-17-2022 [employer] Work Phone: MRI SHOULDER WO IVCON LTon 0 02-25-2022 MRI SHOULDER WO IVCON LT * * *Final Report* * * DATE OF EXAM: Feb 25 2022 9:10PM [facility] [id number] - MRI SHOULDER WO IVCON LT / PROCEDURE REASON: M25.512 PAIN IN LEFT SHOULDER * * * * Physician Interpretation * * * * EXAMINATION: MRI SHOULDER WO IVCON LT HISTORY: 01/08 he was roller skating and fell backwards and landed on his left shoulder, plays football M25.512 PAIN IN LEFT SHOULDER TECHNIQUE: Routine non-contrast MRI of the left shoulder. MQ: [id number]_1A COMPARISON: Outside radiographs of the left shoulder 01/16/2022 RESULT: Motion degraded study. TENDONS: Rotator cuff tendons: -Supraspinatus: Intact tendon -Infraspinatus: Intact tendon -Subscapularis: Intact tendon -Teres Minor: Intact tendon Biceps (Long head) Tendon: Intact , with normal course MUSCLES: Rotator cuff muscles: -Supraspinatus: Preserved bulk and no fatty changes. -Infraspinatus: Preserved bulk and no fatty changes. -Subscapularis: Preserved bulk and no fatty changes. -Teres Minor: Preserved bulk and no fatty changes. Other muscles: Preserved signal and bulk in the deltoid. JOINTS: Glenohumeral Joint: -Labrum: Tear in the anterior inferior labrum and periosteal sleeve avulsion, bright signal at the super labrum may be fraying -Cartilage: High grade (greater than 50% thickness) partial thickness cartilage loss and or fissuring -Joint Fluid: Trace effusion. No synovitis. Acromioclavicular Joint: Normal BONES AND MARROW: There is edema at the posterior lateral humeral head with some contour irregularity suggesting Hill-Sachs deformity and prior dislocation injury. OTHER: Subdeltoid/Subacromial Bursa: Normal Other: No other significant findings. Localizer images: IMPRESSION: 1. Findings suggestive of a prior anterior shoulder dislocation with Hill-Sachs deformity and edema at the posterior humeral head. 2. Tear in the anterior inferior labrum and periosteal sleeve avulsion suggested. Possible fraying at the superior labrum. 3. High-grade cartilage loss and fissuring involving the glenoid. Business Line Controller[facility] Transcribe Date/Time: Feb 26 2022 8:08A Dictated by : LIZET COOPER DO This examination was interpreted and the report reviewed and electronically signed by: LIZET COOPER DO on Feb 26 2022 8:54AM EST [id number] [facility] XR Finger - left AP and Late ral and obliqueon 03-20-2020 IMPRESSION: Soft tissue swelling with no evidence of fracture. Business Line Controller: [facility] Transcribe Date/Time: Mar 20 2020 7:55P Dictated by : RAUL MCLAUGHLIN MD This examination was interpreted and the report reviewed and electronically signed by: RAUL MCLAUGHLIN MD on Mar 20 2020 7:56PM [facility] DIVISION OF RADIOLOGY * * *Final Report* * * DATE OF EXAM: Mar 20 2020 7:39PM WOX [id number] - XR DIGIT 3V FRONTAL/LAT/OBL LT / PROCEDURE REASON: Thumb pain, left * * * * Physician Interpretation * * * * TECHNIQUE: XR DIGIT 3V FRONTAL/LAT/OBL LT - EXAM DATE: 03/20/2020 7:39 PM CLINICAL HISTORY: 14 years Male with Thumb pain, left ; pt states injured left thumb during football today COMPARISON: None RESULT: There is no fracture or dislocation. Bone density is normal. Joint spaces are maintained. Soft tissue swelling at the base of the thumb. DIVISION OF RADIOLOGY [facility] * * *Final Report* * * DATE OF EXAM: Mar 20 2020 7:39PM [facility] [id number] - XR DIGIT 3V FRONTAL/LAT/OBL LT / PROCEDURE REASON: Thumb pain, left * * * * Physician Interpretation * * * * TECHNIQUE: XR DIGIT 3V FRONTAL/LAT/OBL LT - EXAM DATE: 03/20/2020 7:39 PM CLINICAL HISTORY: 14 years Male with Thumb pain, left ; pt states injured left thumb during football today COMPARISON: None RESULT: There is no fracture or dislocation. Bone density is normal. Joint spaces are maintained. Soft tissue swelling at the base of the thumb. IMPRESSION IMPRESSION: Soft tissue swelling with no evidence of fracture. Business Line Controller: [employer] Transcribe Date/Time: Mar 20 2020 7:55P Dictated by : RAUL MCLAUGHLIN MD This examination was interpreted and the report reviewed and electronically signed by: RAUL MCLAUGHLIN MD on Mar 20 2020 7:56PM EST [facility] Radiology Study observation (narrative) [facility] XR Finger - left AP and Late ral and obliqueOrdered By: Ccf Provider on 03-20-2020 [facility] Vital Signs Date Time Vital Sign Value Performing Clinician Facility 11-15-2024 13:40-0400 Body height 182.9 cm Jean Claude Adkins APRN.CNP Work Phone: [facility] 11-15-2024 13:40-0400 Body mass index (BMI) [Ratio] 22.57 kg/m2 Jean Claude Adkins APRN.CLAY [employer] Work Phone: [facility] 11-15-2024 13:40-0400 Body weight 75.5 kg Jean Claude Adkins APRN.[employer] Work Phone: [facility] 11-15-2024 13:40-0400 Diastolic blood pressure 65 mm[Hg] Jean Claude Adkins APRN.CLAY [employer] Work Phone: [facility] 11-15-2024 13:40-0400 Heart rate 62 /min Jean Claude Adkins APRN.[employer] Work Phone: [facility] 11-15-2024 13:40-0400 Respiratory rate 16 /min Jean Claude Adkins APRN.[employer] Work Phone: [facility] 11-15-2024 13:40-0400 SaO2% (BldA) [Mass fraction] 98 % Jean Claude Adkins APRN.CL[employer] Work Phone: [facility] 11-15-2024 13:40-0400 Systolic blood pressure 106 mm[Hg] Jean Claude Adkins APRN.CLAY M[employer]DER Work Phone: [facility] 07-11-2024 09:17-0500 Body height 182.9 cm Matt Christinai DO Work Phone: [facility] 07-11-2024 09:17-0500 Body mass index (BMI) [Ratio] 23.33 kg/m2 Matt Josh DO Work Phone: [facility] 07-11-2024 09:17-0500 Body weight 78.02 kg Mattfarhan Christinai DO Work Phone: [facility] 07-11-2024 09:17-0500 Diastolic blood pressure 60 mm[Hg] Mattfarhan Christinai DO Work Phone: [facility] 07-11-2024 09:17-0500 Heart rate 78 /min Mattfarhan Christinai DO Work Phone: [facility] 07-11-2024 09:17-0500 SaO2% (BldA) [Mass fraction] 97 % Mattfarhan Christinai DO Work Phone: [facility] 07-11-2024 09:17-0500 Systolic blood pressure 120 mm[Hg] Matt Johs DO Work Phone: [facility] 03-20-2024 08:31-0400 Body temperature 96.91 [degF] Van Hubbard MD Work Phone: [facility] 03-20-2024 08:31-0400 Body weight 77.7 kg Van Hubbard MD Work Phone: [facility] 03-20-2024 08:31-0400 Diastolic blood pressure 76 mm[Hg] Van Hubbard MD Work Phone: [facility] 03-20-2024 08:31-0400 Heart rate 72 /min Van Hubbard MD Work Phone: [facility] 03-20-2024 08:31-0400 Respiratory rate 16 /min Van Hubbard MD Work Phone: [facility] 03-20-2024 08:31-0400 Systolic blood pressure 122 mm[Hg] Van Hubbard MD Work Phone: [facility] 02-02-2024 18:29-0400 Body temperature 97 [degF] Julia Pan MD Work Phone: [facility] 02-02-2024 18:29-0400 Body weight 75.81 kg Julia Pan MD Work Phone: [facility] 02-02-2024 18:29-0400 Heart rate 72 /min Julia Pan MD Work Phone: [facility] 02-02-2024 18:29-0400 Respiratory rate 16 /min Julia Pan MD Work Phone: [facility] 09-22-2022 09:24-0400 Body height 182.9 cm Jung Sigala MD Work Phone: [facility] 09-22-2022 09:24-0400 Body mass index (BMI) [Percentile] Per age and sex 53.86 % Jung Sigala MD Work Phone: [facility] 09-22-2022 09:24-0400 Body mass index (BMI) [Ratio] 21.7 kg/m2 Jung Sigala MD Work Phone: [facility] 09-22-2022 09:24-0400 Body temperature 97.39 [degF] Jung Sigala MD Work Phone: [facility] 09-22-2022 09:24-0400 Body weight 72.58 kg Jung Sigala MD Work Phone: [facility] 09-22-2022 09:24-0400 Diastolic blood pressure 75 mm[Hg] Jung Sigala MD Work Phone: [facility] 09-22-2022 09:24-0400 Heart rate 80 /min Jung Sigala MD Work Phone: [facility] 09-22-2022 09:24-0400 Systolic blood pressure 115 mm[Hg] Jung Sigala MD Work Phone: [facility] 07-28-2022 09:48-0500 Body height 182.9 cm Jung Sigala MD Work Phone: [facility] 07-28-2022 09:48-0500 Body mass index (BMI) [Percentile] Per age and sex 55.24 % Jung Sigala MD Work Phone: [facility] 07-28-2022 09:48-0500 Body mass index (BMI) [Ratio] 21.7 kg/m2 Jung Sigala MD Work Phone: [facility] 07-28-2022 09:48-0500 Body weight 72.58 kg Jung Sigala MD Work Phone: [facility] 07-28-2022 09:48-0500 Diastolic blood pressure 57 mm[Hg] Jung Sigala MD Work Phone: [facility] 07-28-2022 09:48-0500 Heart rate 66 /min Jung Sigala MD Work Phone: [facility] 07-28-2022 09:48-0500 Systolic blood pressure 128 mm[Hg] Jung Sigala MD Work Phone: [facility] 07-22-2022 12:32-0500 Body height 185 cm Julia Pan MD Work Phone: [facility] 07-22-2022 12:32-0500 Body mass index (BMI) [Percentile] Per age and sex 57.6 % Julia Pan MD Work Phone: [facility] 07-22-2022 12:32-0500 Body temperature 98.71 [degF] Julia Pan MD Work Phone: [facility] 07-22-2022 12:32-0500 Body weight 74.84 kg Julia Pan MD Work Phone: [facility] 07-22-2022 12:32-0500 Diastolic blood pressure 60 mm[Hg] Julia Pan MD Work Phone: [facility] 07-22-2022 12:32-0500 Heart rate 80 /min Julia Pan MD Work Phone: [facility] 07-22-2022 12:32-0500 Respiratory rate 18 /min Julia Pan MD Work Phone: [facility] 07-22-2022 12:32-0500 Systolic blood pressure 102 mm[Hg] Julia Pan MD Work Phone: [facility] 06-30-2022 09:46-0500 Body height 182.9 cm Jung Sigala MD Work Phone: [facility] 06-30-2022 09:46-0500 Body mass index (BMI) [Percentile] Per age and sex 55.93 % Jung Sigala MD Work Phone: [facility] 06-30-2022 09:46-0500 Body mass index (BMI) [Ratio] 21.7 kg/m2 Jung Sigala MD Work Phone: [facility] 06-30-2022 09:46-0500 Body temperature 98.91 [degF] Jung Sigala MD Work Phone: [facility] 06-30-2022 09:46-0500 Body weight 72.58 kg Jung Sigala MD Work Phone: [facility] 06-30-2022 09:46-0500 Diastolic blood pressure 80 mm[Hg] Jung Sigala MD Work Phone: [facility] 06-30-2022 09:46-0500 Heart rate 97 /min Jung Sigala MD Work Phone: [facility] 06-30-2022 09:46-0500 Systolic blood pressure 136 mm[Hg] Jung Siagla MD Work Phone: [facility] 06-30-2022 08:38-0500 Body height 182.9 cm Jamilah Johnson MD Work Phone: [facility] 06-30-2022 08:38-0500 Body mass index (BMI) [Percentile] Per age and sex 55.93 % Jamilah Johnson MD Work Phone: [facility] 06-30-2022 08:38-0500 Body mass index (BMI) [Ratio] 21.7 kg/m2 Jamilah Johnson MD Work Phone: [facility] 06-30-2022 08:38-0500 Body weight 72.58 kg Jamilah Johnson MD Work Phone: [facility] 06-30-2022 08:38-0500 Diastolic blood pressure 84 mm[Hg] Jamilah Johnson MD Work Phone: [facility] 06-30-2022 08:38-0500 Systolic blood pressure 122 mm[Hg] Jamilah Johnson MD Work Phone: [facility] 05-09-2022 17:27-0500 Body temperature 97.2 [degF] [facility] Work Phone: 05-09-2022 17:27-0500 Diastolic blood pressure 69 mm[Hg] [facility] Work Phone: 05-09-2022 17:27-0500 Heart rate 88 /min [facility] Work Phone: 05-09-2022 17:27-0500 Respiratory rate 16 /min [facility] Work Phone: 05-09-2022 17:27-0500 SaO2% (BldA) [Mass fraction] 98 % [facility] Work Phone: 05-09-2022 17:27-0500 Systolic blood pressure 134 mm[Hg] [facility] Work Phone: 05-09-2022 13:19-0500 Body height 182.88 cm [facility] Work Phone: 05-09-2022 13:19-0500 Body mass index (BMI) [Percentile] Per age and sex 81.2 % [facility] Work Phone: 05-09-2022 13:19-0500 Body mass index (BMI) [Ratio] 24.2 kg/m2 [facility] Work Phone: 05-09-2022 13:19-0500 Body weight 80.9 kg [facility] Work Phone: 04-02-2022 11:00-0400 Body temperature 98.49 [degF] Jamilah Johnson MD Work Phone: [facility] 04-02-2022 11:00-0400 Diastolic blood pressure 61 mm[Hg] Jamilah Johnson MD Work Phone: [facility] 04-02-2022 11:00-0400 Heart rate 54 /min Jamilah Johnson MD Work Phone: [facility] 04-02-2022 11:00-0400 Respiratory rate 18 /min Jamilah Johnson MD Work Phone: [facility] 04-02-2022 11:00-0400 SaO2% (BldA) [Mass fraction] 100 % Jamilah Johnson MD Work Phone: [facility] 04-02-2022 11:00-0400 Systolic blood pressure 115 mm[Hg] Jamilah Johnson MD Work Phone: [facility] 04-02-2022 06:16-0400 Body height 182.9 cm Jamilah Johnson MD Work Phone: [facility] 04-02-2022 06:16-0400 Body mass index (BMI) [Percentile] Per age and sex 63.11 % Jamilah Johnson MD Work Phone: [facility] 04-02-2022 06:16-0400 Body mass index (BMI) [Ratio] 22.11 kg/m2 Jamilah Johnson MD Work Phone: [facility] 04-02-2022 06:16-0400 Body weight 73.94 kg Jamilah Johnson MD Work Phone: [facility] 03-31-2022 14:32-0400 Body temperature 98.8 [degF] Jamilah Johnson MD Work Phone: [facility] 03-31-2022 14:32-0400 Diastolic blood pressure 65 mm[Hg] Jamilah Johnson MD Work Phone: [facility] 03-31-2022 14:32-0400 Systolic blood pressure 113 mm[Hg] Jamliah Johnson MD Work Phone: [facility] 03-31-2022 14:09-0400 Body height 182.9 cm Jamilah Johnson MD Work Phone: [facility] 03-31-2022 14:09-0400 Body mass index (BMI) [Percentile] Per age and sex 67.6 % Jamilah Johnson MD Work Phone: [facility] 03-31-2022 14:09-0400 Body mass index (BMI) [Ratio] 22.51 kg/m2 Jamilah Johnson MD Work Phone: [facility] 03-31-2022 14:09-0400 Body weight 75.3 kg Jamilah Johnson MD Work Phone: [facility] 03-31-2022 14:09-0400 Respiratory rate 16 /min Jamilah Johnson MD Work Phone: [facility] 02-04-2022 15:25-0400 Body height 184 cm Julia Pan MD Work Phone: [facility] 02-04-2022 15:25-0400 Body mass index (BMI) [Percentile] Per age and sex 73.23 % Julia Pan MD Work Phone: [facility] 02-04-2022 15:25-0400 Body temperature 98.49 [degF] Julia Pan MD Work Phone: [facility] 02-04-2022 15:25-0400 Body weight 77.79 kg Julia Pan MD Work Phone: [facility] 02-04-2022 15:25-0400 Diastolic blood pressure 52 mm[Hg] Julia Pan MD Work Phone: [facility] 02-04-2022 15:25-0400 Heart rate 78 /min Julia Pan MD Work Phone: [facility] 02-04-2022 15:25-0400 Respiratory rate 16 /min Julia Pan MD Work Phone: [facility] 02-04-2022 15:25-0400 Systolic blood pressure 112 mm[Hg] Julia Pan MD Work Phone: [facility] 02-02-2022 08:34-0400 Body height 182.9 cm Mal Mills MD Work Phone: [facility] 02-02-2022 08:34-0400 Body mass index (BMI) [Percentile] Per age and sex 73.97 % Mal Mills MD Work Phone: [facility] 02-02-2022 08:34-0400 Body weight 77.11 kg Mal Mills MD Work Phone: [facility] 01-16-2022 17:41-0400 Body height 185.42 cm [facility] Work Phone: 01-16-2022 17:41-0400 Body mass index (BMI) [Percentile] Per age and sex 66.9 % [facility] Work Phone: 01-16-2022 17:41-0400 Body mass index (BMI) [Ratio] 22.3 kg/m2 [facility] Work Phone: 01-16-2022 17:41-0400 Body temperature 98.3 [degF] [facility] Work Phone: 01-16-2022 17:41-0400 Body weight 76.65 kg [facility] Work Phone: 01-16-2022 17:41-0400 Diastolic blood pressure 69 mm[Hg] [facility] Work Phone: 01-16-2022 17:41-0400 Heart rate 62 /min [facility] Work Phone: 01-16-2022 17:41-0400 Respiratory rate 18 /min [facility] Work Phone: 01-16-2022 17:41-0400 SaO2% (BldA) [Mass fraction] 100 % [facility] Work Phone: 01-16-2022 17:41-0400 Systolic blood pressure 132 mm[Hg] [facility] Work Phone: Encounters Encounter Date Encounter Type Care Provider Facility Start: 01-27-2025 End: 01-29-2025 Refill Matt Moreno DO Work Phone: [facility] Comment on above: Refill Request Start: 11-24-2024 End: 11-24-2024 Patient encounter procedure Olga Melendez MD Work Phone: Otolaryngology Comment on above: Tonsillith (Primary Dx); Tonsillolith; Recurrent streptococcal pharyngitis Start: 11-24-2024 End: 11-24-2024 [facility] Start: 11-15-2024 End: 11-15-2024 Office outpatient visit 25 minutes Jean Claude Adkins [employer] Work Phone: [facility] Comment on above: Tonsillolith (Primar y Dx); Recurrent streptococcal pharyngitis; PND (post-nasal drip); Vapes nicotine containing substance Start: 11-15-2024 End: 11-15-2024 ambulatory MATT PARADACINI Facility:[facility] Start: 07-11-2024 End: 07-11-2024 ambulatory OLGA HUTSON Facility:[facility] Start: 07-11-2024 End: 07-11-2024 Patient encounter procedure Matt Moreno DO Work Phone: [facility] Comment on above: Wellness examination (Primary Dx); Screening for endocrine, metabolic and immunity disorder; Anxiety with depression; Encounter for immunization; Dyspepsia; Tension headache Start: 07-11-2024 End: 07-11-2024 Patient encounter status Matt Moreno DO Work Phone: [facility] Work Phone: Start: 05-02-2024 End: 05-02-2024 Emergency department patient visit OLGA HUTSON Facility:[facility] Start: 03-20-2024 End: 03-20-2024 ambulatory VAN HUBBARD Facility:[facility] Start: 03-20-2024 End: 03-20-2024 Office outpatient visit 25 minutes Van Hubbard MD Work Phone: [facility] Comment on above: Mixed anxiety depres sive disorder (Primary Dx); Pain of upper abdomen; Skin pimple Start: 02-02-2024 End: 02-03-2024 ambulatory JULIA PAN Facility:[facility] Start: 02-02-2024 End: 02-03-2024 Patient encounter procedure Julia Pan MD Work Phone: [facility] Comment on above: Low back pain, unspe cified back pain laterality, unspecified chronicity, unspecified whether sciatica present (Primary Dx); Situational anxiety Start: 02-01-2024 End: 02-01-2024 Emergency department patient visit Julia Lexus Facility:[facility] Start: 04-28-2023 ambulatory Julia Pan MD Work Phone: [facility] Comment on above: Puncture Wound Start: 09-22-2022 End: 09-22-2022 ambulatory [facility] Start: 09-22-2022 End: 09-22-2022 Office outpatient visit 15 minutes Jung Sigala MD Work Phone: [facility] Comment on above: Rupture of left quad riceps tendon, subsequent encounter (Primary Dx) Start: 09-17-2022 End: 09-18-2022 ambulatory [facility] Start: 09-17-2022 End: 09-17-2022 Follow-up encounter Phuc Dykes PA-C Work Phone: [facility] Comment on above: Quadriceps tendon ru pture, left, subsequent encounter (Primary Dx); Superior glenoid labrum lesion of left shoulder, initial encounter; Other instability, left shoulder Start: 09-15-2022 End: 09-16-2022 ambulatory [facility] [facility] Start: 09-15-2022 End: 09-15-2022 Follow-up encounter Phuc Donis PA-C Work Phone: [facility] Comment on above: Quadriceps tendon ru pture, left, subsequent encounter (Primary Dx) Start: 09-10-2022 End: 09-11-2022 ambulatory [facility] Start: 09-10-2022 End: 09-10-2022 Follow-up encounter Phuc Donis PA-C Work Phone: [facility] Comment on above: Quadriceps tendon ru pture, left, subsequent encounter (Primary Dx) Start: 09-08-2022 End: 09-09-2022 [facility] Start: 09-01-2022 End: 09-02-2022 ambulatory [facility] Start: 09-01-2022 End: 09-01-2022 Follow-up encounter Phuc Donis PA-C Work Phone: [facility] Comment on above: Quadriceps tendon ru pture, left, subsequent encounter (Primary Dx); Superior glenoid labrum lesion of left shoulder, initial encounter; Other instability, left shoulder Start: 08-27-2022 End: 08-28-2022 [facility] Start: 08-27-2022 End: 08-27-2022 Follow-up encounter Phuc Donis PA-C Work Phone: [facility] Comment on above: Quadriceps tendon ru pture, left, subsequent encounter (Primary Dx); Superior glenoid labrum lesion of left shoulder, initial encounter; Other instability, left shoulder Start: 08-20-2022 End: 08-21-2022 ambulatory [facility] Start: 08-20-2022 End: 08-20-2022 ambulatory Phuc Donis PA-C Work Phone: [facility] Comment on above: Quadriceps tendon ru pture, left, subsequent encounter (Primary Dx) Start: 08-18-2022 End: 08-19-2022 ambulatory JULIA PAN [facility] Start: 08-18-2022 End: 08-18-2022 Follow-up encounter Phuc Donis PA-C Work Phone: [facility] Comment on above: Quadriceps tendon ru pture, left, subsequent encounter (Primary Dx) Start: 08-13-2022 End: 08-14-2022 ambulatory [facility] Start: 08-13-2022 End: 08-13-2022 Follow-up encounter Phuc Donis PA-C Work Phone: [facility] Comment on above: Quadriceps tendon ru pture, left, subsequent encounter (Primary Dx) Start: 08-11-2022 End: 08-12-2022 ambulatory JULIA PAN [facility] Start: 08-11-2022 End: 08-11-2022 Follow-up encounter Phuc Donis PA-C Work Phone: [facility] Comment on above: Quadriceps tendon ru pture, left, subsequent encounter (Primary Dx) Start: 08-06-2022 End: 08-07-2022 ambulatory [facility] Start: 08-06-2022 End: 08-06-2022 Follow-up encounter Phuc Donis PA-C Work Phone: [facility] Comment on above: Quadriceps tendon ru pture, left, subsequent encounter (Primary Dx) Start: 07-30-2022 End: 07-31-2022 ambulatory [facility] Start: 07-30-2022 End: 07-30-2022 Follow-up encounter Phuc Donis PA-C Work Phone: [facility] Comment on above: Quadriceps tendon ru pture, left, subsequent encounter (Primary Dx) Start: 07-28-2022 End: 07-28-2022 Follow-up encounter Phuc Donis PA-C Work Phone: [facility] Comment on above: Quadriceps tendon ru pture, left, subsequent encounter (Primary Dx) Start: 07-28-2022 End: 07-29-2022 ambulatory [employer] Start: 07-28-2022 End: 07-28-2022 Postop follow up visit related to original px Jung Sigala MD Work Phone: [facility] [place] Comment on above: Rupture of left quad riceps tendon, subsequent encounter (Primary Dx); Stiffness of left knee Start: 07-23-2022 End: 07-24-2022 ambulatory [employer] [facility] Start: 07-23-2022 End: 07-23-2022 Follow-up encounter Phuc Dykes PA-C Work Phone: [facility] Comment on above: Quadriceps tendon ru pture, left, subsequent encounter (Primary Dx); Superior glenoid labrum lesion of left shoulder, initial encounter; Other instability, left shoulder Start: 07-23-2022 End: 07-23-2022 ambulatory Phuc Dykes PA-C Work Phone: [facility] Comment on above: Quadriceps tendon ru pture, left, subsequent encounter (Primary Dx) Start: 07-22-2022 End: 07-22-2022 Patient encounter procedure Julia Pan MD Work Phone: [facility] Comment on above: Situational anxiety (Primary Dx) Start: 07-21-2022 End: 07-22-2022 ambulatory [employer] Comment on above: Quadriceps tendon ru pture, left, subsequent encounter (Primary Dx) Start: 07-16-2022 End: 07-17-2022 ambulatory [employer] Comment on above: Quadriceps tendon ru pture, left, subsequent encounter (Primary Dx) Superior glenoid lab rum lesion of left shoulder, initial encounter (Primary Dx); Other instability, left shoulder Start: 07-14-2022 End: 07-15-2022 ambulatory [employer] Comment on above: Quadriceps tendon ru pture, left, subsequent encounter (Primary Dx) Start: 07-09-2022 End: 07-10-2022 ambulatory JULIA PAN [facility] Start: 07-09-2022 End: 07-09-2022 Clinical Support Phuc Dykes PA-C Work Phone: [facility] Comment on above: Quadriceps tendon ru pture, left, subsequent encounter (Primary Dx) Start: 07-07-2022 End: 07-08-2022 ambulatory JULIA PAN [facility] Start: 07-07-2022 End: 07-07-2022 Clinical Support Phuc Dykes PA-C Work Phone: [facility] Comment on above: Arrived Superior glenoid lab rum lesion of left shoulder, initial encounter (Primary Dx); Other instability, left shoulder Start: 07-02-2022 End: 07-02-2022 Clinical Support Phuc Dykes PA-C Work Phone: [facility] Comment on above: Superior glenoid lab rum lesion of left shoulder, initial encounter (Primary Dx); Quadriceps tendon rupture, left, subsequent encounter; Other instability, left shoulder Quadriceps tendon ru pture, left, subsequent encounter (Primary Dx) Start: 07-02-2022 End: 07-03-2022 [facility] Comment on above: Arrived Start: 06-30-2022 End: 07-01-2022 [facility] JULIA PAN [facility] Start: 06-30-2022 End: 06-30-2022 Clinical Support Phuc Dykes PA-C Work Phone: [facility] Comment on above: Quadriceps tendon ru pture, left, subsequent encounter (Primary Dx) Start: 06-30-2022 End: 07-01-2022 ambulatory JUNG SIGALA [facility] Start: 06-30-2022 End: 06-30-2022 Postop follow up visit related to original px Jung Sigala MD Work Phone: [facility] [place] Comment on above: Quadriceps tendon ru pture, left, subsequent encounter (Primary Dx) Start: 06-30-2022 End: 06-30-2022 ambulatory JAMILAH JOHNSON [employer] [facility] Comment on above: Superior glenoid lab rum lesion of left shoulder, initial encounter (Primary Dx); Other instability, left shoulder Start: 06-30-2022 End: 06-30-2022 Office outpatient visit 15 minutes Jamilah Johnson MD Work Phone: [facility] [place] Comment on above: Instability of left shoulder joint; Tear of left glenoid labrum, subsequent encounter Start: 06-25-2022 End: 06-25-2022 Clinical Support Malika Gramajo [facility] [employer] [facility] Comment on above: Quadriceps tendon ru pture, left, subsequent encounter (Primary Dx) Start: 06-25-2022 End: 06-26-2022 ambulatory [employer] Comment on above: Superior glenoid lab rum lesion of left shoulder, initial encounter (Primary Dx); Other instability, left shoulder Start: 06-23-2022 End: 06-23-2022 Clinical Support Phuc Dykes PA-C [facility]: [facility] Comment on above: Quadriceps tendon ru pture, left, subsequent encounter (Primary Dx) Start: 06-23-2022 End: 06-24-2022 ambulatory [employer] Comment on above: Superior glenoid lab rum lesion of left shoulder, initial encounter (Primary Dx); Other instability, left shoulder Start: 06-18-2022 End: 06-19-2022 ambulatory [employer] [facility] Comment on above: Quadriceps tendon ru pture, left, subsequent encounter (Primary Dx) Start: 06-16-2022 End: 06-17-2022 ambulatory [employer] [facility] Start: 06-16-2022 End: 06-16-2022 Clinical Support Phuc Dykes PA-C Work Phone: [facility] Comment on above: Quadriceps tendon ru pture, left, subsequent encounter Other instability, l eft shoulder (Primary Dx); Superior glenoid labrum lesion of left shoulder, initial encounter Start: 06-09-2022 End: 06-10-2022 ambulatory LORELEI KUMAR [facility] Start: 06-04-2022 End: 06-05-2022 ambulatory LORELEI KUMAR [facility] Start: 2022 End: 06-03-2022 ambulatory JUNG SIGALA [facility] Start: 05-28-2022 End: 05-29-2022 ambulatory LORELEI KUMAR [facility] Start: 05-21-2022 End: 05-22-2022 ambulatory LORELEI KUMAR [facility] Start: 05-19-2022 End: 05-19-2022 ambulatory JAMILAH MARLINE [facility] Start: 05-09-2022 End: 05-14-2022 Evaluation and management of inpatient JUNG [facility] Start: 05-09-2022 End: 05-09-2022 Emergency department patient visit [facility] Start: 05-04-2022 End: 05-05-[address] [facility] Start: 04-27-2022 End: 04-28-2022 ambulatory ROSEMARYRANDALL GUNN [facility] Start: 04-23-2022 End: 04-24-[address] [facility] Start: 04-16-2022 End: 04-17-2022 ambulatory MALIKA GRAMAJO [facility] Start: 04-14-2022 End: 04-14-2022 ambulatory LORELEI KUMAR [facility] Start: 04-02-2022 End: 04-02-2022 ambulatory [facility] Start: 04-02-2022 End: 04-02-2022 Subsequent hospital visit by physician Jamilah Johnson MD Work Phone: [facility] Comment on above: Glenoid labral tear, left, initial encounter (Primary Dx); Shoulder instability, left Start: 03-31-2022 ambulatory Juliaelpidio Pan [facility] Start: 03-31-2022 Encounter for other preprocedural examination Jamilah Johnson [facility] Start: 03-31-2022 End: 03-31-2022 Subsequent hospital visit by physician Jamilah Johnson MD Work Phone: [facility]mit [facility] Comment on above: Arrived Other instability, l eft shoulder (Primary Dx); Superior glenoid labrum lesion of left shoulder, initial encounter Start: 03-17-2022 ambulatory Julia Pan [facility] Start: 03-17-2022 End: 03-17-2022 Subsequent hospital visit by physician Lorelei Kumar PA-C Work Phone: [facility] Start: 02-25-2022 ambulatory [facility] Facility :[facility] Start: 02-25-2022 End: 02-25-2022 Subsequent hospital visit by physician [facility] (1.5t) Radiology Comment on above: Pain in left shoulde r [M25.512] Start: 02-04-2022 End: 02-04-2022 Patient encounter procedure Julia Pan MD Work Phone: [facility] [place] Comment on above: Encounter for routin e child health examination w/o abnormal findings (Primary Dx); Encounter for immunization; Routine screening for STI (sexually transmitted infection); Other viral warts Start: 02-04-2022 End: 02-04-2022 Patient encounter status Julia Pan MD Work Phone: [facility] [place] Start: 02-02-2022 End: 02-02-2022 Patient encounter procedure Mal Mills MD Work Phone: Orthopaedics Comment on above: Left shoulder strain , initial encounter (Primary Dx) Start: 01-16-2022 End: 01-16-2022 Emergency department patient visit [facility] Start: 01-16-2022 ambulatory Khalida Coreas RN [employer] Comment on above: Shoulder Dislocation Start: 03-20-2020 End: 03-20-2020 [facility] Comment on above: Thumb pain, left [M7 9.645] Procedures Date Procedure Procedure Detail Performing Clinician Start: 02-02-2024 Urnls dip stick/tabl et rgnt auto w/o microscopy Julia Pan MD Work Phone: Start: 07-22-2022 Adult depression scr eening assessment Julia Pan MD Work Phone: Start: 05-09-2022 Radiologic examinati on of knee Start: 04-02-2022 EDGAR STUDIO 3 Jamilah sams MD Work Phone: Start: 03-17-2022 Radex shoulder compl ete minimum 2 views Lorelei Kumar PA-C Work Phone: Start: 02-04-2022 Menacwy-tt conj vacc serogroups acwy for im use Julia Pan MD Work Phone: Start: 02-04-2022 Adult depression scr eening assessment Julia Pan MD Work Phone: Start: 01-16-2022 Plain X-ray of shoulder Start: 11-14-2020 Adult depression scr eening assessment Khalida Coreas RN Start: 03-20-2020 Radex fingr minimum 2 views Hilario Lobo MD Work Phone: Plan of Treatment Date Care Activity Detail Author Start: 2055 Zoster Vaccines (1 o f 2) Zoster Vaccines (1 of 2) [facility] Start: 05-09-2032 DTaP/Tdap/Td Vaccine s (7 - Td or Tdap) DTaP/Tdap/Td Vaccines (7 - Td or Tdap) [facility] Start: 05-09-2032 Urine microalbumin profile DTaP,Tdap,Td Vaccine (8 - Td or Tdap) [facility] Start: 02-12-2028 Urine microalbumin profile DTAP,TDAP,TD (7 - Td or Tdap) [facility] Start: 11-15-2025 Covid-19 Vaccine ( season) Covid-19 Vaccine ( season) [facility] Comment on above: Postponed from 02/12 (Declined at this time) Start: 07-13-2025 End: 07-13-2025 Patient encounter procedure 07/13/2025 9:40 AM EST Office Visit [id number] [place], [place] [id number] Matt Moreno DO [address] [place], [place] [phone] Return in about 1 year (around 07/11/2025) for annual physical . [facility] Comment on above: Return in about 1 ye ar (around 07/11/2025) for annual physical . Start: 02-12-2025 Influenza vaccination Influenza Vacc ine (#1) [facility] Start: 12-29-2024 End: 12-29-2024 Patient encounter procedure 12/29/2024 9:40 AM EDT Office Visit Otolaryngology [address] [place], [place] [id number] [place] [address] [place] [address] Tonsillolith [J35.8] Otolaryngology Comment on above: Tonsillolith [J35.8] Start: 04-17-2024 End: 04-17-2024 Patient encounter procedure 04/17/2024 6:40 PM EST Office Visit [facility] [address] [place], [place] [phone] Olga Hutson MD [address] [place] [address] ESTABLISH WITH PRIMARY CARE NEW PATIENT [facility] Comment on above: ESTABLISH WITH PRIMA RY CARE NEW PATIENT Start: 03-15-2024 End: 03-15-2024 Patient encounter procedure 03/15/2024 6:00 PM EDT Office Visit [facility] [place] [address] [place], [place] [phone] Julia Pan MD [address] [place], [place] [phone] 1 month f/u [facility] [place] Comment on above: 1 month f/u Start: 09-01-2024 Covid-19 Vaccine ( season) Covid-19 Vaccine () [facility] Start: 02-13-2024 Influenza vaccination Influenza Vacc ine (#1) [facility] Start: 07-22-2023 Adult depression screening assessment DEPRESSION SCREENING [facility] Start: 2023 Anxiety Screening Anxiety Screening [facility] Start: 2023 Depression Screening Depression Scre ening [facility] Start: 2023 Hepatitis C screening Hepatitis C Sc reening [facility] Start: 2023 HIV screening HIV Screening [facility] Start: 02-12-2023 Covid-19 Vaccine () Covid-19 Vaccine ()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 like he did in the gym trying to gain ROM. Demonstrates good tolerance throughout session today. Able to perform LAQ on bench, demonstrating improved quad activation, did not use RLE for assist with raising LLE. Also emphasized throughout treatment, gait activities and re-enforcing knee flexion with walking (vs. dragging leg like he has been doing for several weeks in the immobilizer). Confidence is building, less pain, and overall improved mobility. Plan Plan PT Plan: continue w/ aquatic therapy, emphasis on knee flexion ROM and strengthening/gait activities General/Ortho Patient will report 85% or > return to PLOF. (Progressing) Start: 06/16/22 Expected End: 09/14/22 Patient will report decreased pain at 1/10 or < in left knee to be able to improve tolerance to daily activities and allow for therapy progressions. (Progressing) Start: 06/16/22 Expected End: 09/14/22 Patient will increase ROM of left knee to 0-120 be able to normalize gait mechanics and improve functional mobility. (Progressing) Start: 06/16/22 Expected End: 09/14/22 Patient will increase strength in LLE to 5/5 to be able to ensure safe transfers and return to recreational activities. (Progressing) Start: 06/16/22 Expected End: 09/14/22 Gait: Patient will demonstrate ability to ambulate with no evident gait deviations present utilizing no assistive device. (Progressing) Start: 06/16/22 Expected End: 09/14/22 Balance: Patient will improve SLS to >20 sec to improve safety with transfers and stair negotiation. (Progressing) Start: 06/16/22 Expected End: 09/14/22 Functional Outcome Measure: Patient will improve LEFS to >60. (Progressing) Start: 06/16/22 Expected End: 09/14/22 Time Entry Total Treatment Time Start Time: 1615 Stop Time: 1655 Time Calculation (min): 40 min PT Therapeutic Procedures Time Entry Aquatic Therapy Time Entry: 3 Malika Gramajo, PT documented in this encounter [facility] 07-16-2022 History of Present illness Narrative Images from the original note were not included. [facility] AT [place] [address] [place] [address] Dept: [phone] Dept PHYSICAL THERAPY RE-EVALUATION & DISCHARGE Patient Name: Charley Gutierrez : 2005 Today's Date: 07/16/2022 Visit Info General Visit Information General Chart Reviewed: Yes General Comments: No pain at all in the shoulder. No difficulties doing any daily activities. Pain Pain Assessment Pain Assessment: No/denies pain Assessment Extremity/Ortho Assessments Shoulder L Shoulder ROM/Strength AROM Strength Shoulder Flexion 175 5/5 Shoulder Extension NT NT Shoulder ABduction 180 5/5 Shoulder Int Rotation 80 5/5 Shoulder Ext Rotation 85 5/5 Treatment Therapeutic Activity Therapeutic Activity 1: reassessment of subjective and objective measures, reviewed goals and POC Plan & Recommendations PT Assessment PT Assessment: Upon reassessment of the left shoulder today, patient has met all current PT goals and demonstrates ability to d/c formal therapy services. Strength is 5/5 in all planes, and full AROM and functional mobility has been restored. Patient was instructed to continue to maintain gains with HEP. Plan PT Plan: d/c left shoulder to independent HEP Resolved Patient will demo left shoulder flexion AROM to 150 degrees or > to improve mobility with dressing and reaching activities. (Completed) Start: 04/16/22 Expected End: 07/15/22 Met: 06/16/22 Patient will report 0-1/10 pain in left shoulder with activity/movement to improve tolerance to daily activities. (Completed) Start: 04/16/22 Expected End: 07/15/22 Met: 06/16/22 Patient will increase left shoulder functional IR to T10 or > to improve mobility with dressing and bathing. (Completed) Start: 04/16/22 Expected End: 07/15/22 Met: 06/16/22 Patient will improve left shoulder functional ER to T2 or > to improve mobility with bathing. (Completed) Start: 04/16/22 Expected End: 07/15/22 Met: 06/16/22 Patient will improve LUE MMT to 5/5 in all planes to facilitate safe return to sport. (Completed) Start: 04/16/22 Expected End: 07/16/22 Met: 07/16/22 Patient will improve DASH score to <20 to demo improved function. (Completed) Start: 04/16/22 Expected End: 07/15/22 Met: 06/16/22 Patient will increase Left shoulder ER AROM to 75 degrees or > to be able to improve joint mobility with ADL's and sporting activities. (Completed) Start: 06/16/22 Expected End: 07/16/22 Met: 07/16/22 Time Entry Total Treatment Time Start Time: 1600 Stop Time: 1608 Time Calculation (min): 8 min PT Therapeutic Procedures Time Entry Therapeutic Activity Time Entry: 8 Malika Gramajo PT documented in this encounter [facility] 07-14-2022 History of Present illness Narrative Images from the original note were not included. [facility] [place] [facility] AT [address] [place] [address] Dept: [phone] Dept PHYSICAL THERAPY TREATMENT NOTE Patient Name: Charley Gutierrez : 2005 Today's Date: 07/14/2022 Subjective General Visit Information General Chart Reviewed: Yes Family/Caregiver Present: Yes Patient preferences: New Rx orders: WBAT LLE in KI. Ok to quad strengthen, continue w/ knee flexion (aggressive) General Comments: States 2/10 pain today. States the knee has been tender in the front area. Has been increasing the amount of times he is bending it at home. Pain Pain Assessment Pain Score: 2 Treatment Aquatic Therapy Exercises performed?: Yes (knee ROM, strength, and functional mobility) Assessment PT Assessment PT Assessment: Trialed first aquatic session to improve therex tolerance and reduction of pain levels. Good tolerance today and able to perform all exercises without pain. Patient reported he felt more comfortable with bending of the knee in the pool vs. in the gym. Still demonstrates using assistance from the RLE for elevation of the LLE. Instructed on improving use of the LLE to help expedite both strength and mobility. Patient not as hesistant to perform bending. Weakness in the left hip mm's noted, initiated strengthening in the pool with difficulty and weakness present. Plan Plan PT Plan: continue w/ aquatic therapy, d/c shoulder General/Ortho Patient will report 85% or > return to PLOF. (Progressing) Start: 06/16/22 Expected End: 09/14/22 Patient will report decreased pain at 1/10 or < in left knee to be able to improve tolerance to daily activities and allow for therapy progressions. (Progressing) Start: 06/16/22 Expected End: 09/14/22 Patient will increase ROM of left knee to 0-120 be able to normalize gait mechanics and improve functional mobility. (Progressing) Start: 06/16/22 Expected End: 09/14/22 Patient will increase strength in LLE to 5/5 to be able to ensure safe transfers and return to recreational activities. (Progressing) Start: 06/16/22 Expected End: 09/14/22 Gait: Patient will demonstrate ability to ambulate with no evident gait deviations present utilizing no assistive device. (Progressing) Start: 06/16/22 Expected End: 09/14/22 Balance: Patient will improve SLS to >20 sec to improve safety with transfers and stair negotiation. (Progressing) Start: 06/16/22 Expected End: 09/14/22 Functional Outcome Measure: Patient will improve LEFS to >60. (Progressing) Start: 06/16/22 Expected End: 09/14/22 Time Entry Total Treatment Time Start Time: 1610 Stop Time: 1655 Time Calculation (min): 45 min PT Therapeutic Procedures Time Entry Aquatic Therapy Time Entry: 3 Malika Gramajo PT documented in this encounter [facility] 07-09-2022 History of Present illness Narrative Images from the original note were not included. [facility] [place] [facility] AT [place] [address] [place] [address] Dept: [phone] Dept PHYSICAL THERAPY TREATMENT NOTE Patient Name: Charley Gutierrez : 2005 Today's Date: 07/09/2022 Subjective General Visit Information General Chart Reviewed: Yes Patient preferences: New Rx orders: WBAT LLE in KI. Ok to quad strengthen, continue w/ knee flexion (aggressive) Pain Pain Assessment Pain Score: 6 Treatment Therapeutic Exercise Therapeutic Exercise Activity 2: Knee flexion ROM Activity 2 Comment: hot pack applied to quad & ham: heel slides on wall w/ PT assist and RLE assist 8 min, supine heel slides w/ PT assist 5 min, seated edge of plinth knee flexion w/ PT assist (hot pack and pre mod E-stim applied) 5 min Therapeutic Exercise Acitivity 3: Quad strength Activity 3 Comment: Long sit QS (w/ RLE) 3 2x10, SAQ w/ bolster mod PT assist 2x10 Assessment PT Assessment PT Assessment: Patient still very muscle guarded during knee ROM exercises due to pain with bending. Several different positions trialed this visit with very little success. Moist heat did help to reduce some tension in the muscle however significant guarding and poor tolerance. No change in pain with application of E-stim Pre-mod setting and moist heat. Discussed with patient increasing amount of times he is performing bending exercises at home (to at least 4-5 times a day). Also told to trial getting in the bathtub with assist to try bending in the warm water. Grandfather present and PT gave update on lack of progress. Told them I will be contacting the referring provider to brainstorm what needs to be implemented to help patient progress. Plan Plan PT Plan: trial US for pain relief prior to knee flexion ROM exercises General/Ortho Patient will report 85% or > return to PLOF. (Progressing) Start: 06/16/22 Expected End: 09/14/22 Patient will report decreased pain at 1/10 or < in left knee to be able to improve tolerance to daily activities and allow for therapy progressions. (Progressing) Start: 06/16/22 Expected End: 09/14/22 Patient will increase ROM of left knee to 0-120 be able to normalize gait mechanics and improve functional mobility. (Progressing) Start: 06/16/22 Expected End: 09/14/22 Patient will increase strength in LLE to 5/5 to be able to ensure safe transfers and return to recreational activities. (Progressing) Start: 06/16/22 Expected End: 09/14/22 Gait: Patient will demonstrate ability to ambulate with no evident gait deviations present utilizing no assistive device. (Progressing) Start: 06/16/22 Expected End: 09/14/22 Balance: Patient will improve SLS to >20 sec to improve safety with transfers and stair negotiation. (Progressing) Start: 06/16/22 Expected End: 09/14/22 Functional Outcome Measure: Patient will improve LEFS to >60. (Progressing) Start: 06/16/22 Expected End: 09/14/22 Time Entry Total Treatment Time Start Time: 1605 Stop Time: 1645 Time Calculation (min): 40 min PT Therapeutic Procedures Time Entry Therapeutic Exercise Time Entry: 20 Manual Therapy Time Entry: 15 Malika Gramajo PT documented in this encounter [facility] 07-07-2022 History of Present illness Narrative Images from the original note were not included. [facility] [place] [facility] AT [address] [place] [address] Dept: [phone] Dept PHYSICAL THERAPY TREATMENT NOTE Patient Name: Charley Gutierrez : 2005 Today's Date: 07/07/2022 Subjective General Visit Information General Chart Reviewed: Yes Patient preferences: New Rx orders: WBAT LLE in KI. Ok to quad strengthen, continue w/ knee flexion (aggressive) General Comments: New exercises have been going well. Had some muscle soreness after last session. Has been working on bending the leg only a few times a day with his mom's assistance. Pain Pain Assessment Pain Score: 0 - No pain Treatment Therapeutic Exercise Therapeutic Exercise Activity 2: Knee flexion ROM Activity 2 Comment: prolonged stretch (high mat to seat) 3min, 2x10 seated slow lowering w/ PT/gravity assist, prone knee flexion stretch 1x10, supine heel slides (PT assist) 1x10 Balance/Neuromuscular Re-Education Balance/Neuromuscular Re-Education Activity 1: [place] Citizen for quad Neuro-Ed Activity 1 Comment: on/off 0.5 ramp Normal setting 10 min (2 electrodes: 1 over VMO 1 over quad motor point) Soft Tissue Mobilization Location: Left knee (swelling management) Body Position: Supine Assessment PT Assessment PT Assessment: Poor tolerance to flexion ROM exercises. Pain and extreme muscle guarding during PT assisted flexion exercises and overpressure during prolonged stretching. Swelling and tightness still present. Trialed STM to the quad and hamstring and that did not assist in tolerance. Trialed several different positions as well (supine, seated, and prone), all with fair-poor tolerance. Discussed speaking with parents and physician regarding taking some kind of pain medication prior to therapy sessions to help assist in ability to progress. Issued size E Tubigrip to see if that assists with swelling and instructed patient to increase amount of times a day doing bending exercises. Plan Plan PT Plan: continue w/ emphasis on knee flexion ROM General/Ortho Patient will report 85% or > return to PLOF. (Progressing) Start: 06/16/22 Expected End: 09/14/22 Patient will report decreased pain at 1/10 or < in left knee to be able to improve tolerance to daily activities and allow for therapy progressions. (Progressing) Start: 06/16/22 Expected End: 09/14/22 Patient will increase ROM of left knee to 0-120 be able to normalize gait mechanics and improve functional mobility. (Progressing) Start: 06/16/22 Expected End: 09/14/22 Patient will increase strength in LLE to 5/5 to be able to ensure safe transfers and return to recreational activities. (Progressing) Start: 06/16/22 Expected End: 09/14/22 Gait: Patient will demonstrate ability to ambulate with no evident gait deviations present utilizing no assistive device. (Progressing) Start: 06/16/22 Expected End: 09/14/22 Balance: Patient will improve SLS to >20 sec to improve safety with transfers and stair negotiation. (Progressing) Start: 06/16/22 Expected End: 09/14/22 Functional Outcome Measure: Patient will improve LEFS to >60. (Progressing) Start: 06/16/22 Expected End: 09/14/22 Time Entry Total Treatment Time Start Time: 1630 Stop Time: 1710 Time Calculation (min): 40 min PT Therapeutic Procedures Time Entry Therapeutic Exercise Time Entry: 20 Manual Therapy Time Entry: 5 Neuromuscular Re-Education Time Entry: 10 Malika Gramajo PT documented in this encounter [facility] 07-07-2022 History of Present illness Narrative Images from the original note were not included. [facility] [place] [facility] AT [address] [place] [address] Dept: [phone] Dept PHYSICAL THERAPY TREATMENT NOTE Patient Name: Charley Gutierrez : 2005 Today's Date: 07/07/2022 Subjective General Visit Information General Chart Reviewed: Yes Reason for referral/mechanism of injury: Patient presents today 2 weeks s/p left shoulder anterior labral repair on 04/02/22. He presents with father today who reports this past summer the patient fell and dislocated the shoulder with rollerskating. The shoulder was put back in place, he then discloated the shoulder again during football. Went to the ER, they said it wasnt dislocated and he was released back to play football. He then injured the shoulder again during football. Went to the chiropractor, they did massage and then referred out to Dr. Lu. Dr. Lu then referred to Dr. Johnson. Surgery performed on 04/02/22 to repair left anterior labrum. He presents today donning left shoulder sling, with no post operative complications reported. Just had a follow up with ortho office the other day, sutures were removed. Pain since the surgery comes and goes. He has been compliant with sling use, only icing as needed. He is right hand dominant. Currently requiring assist with all ADL's due to inability to use the LUE. 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 General Comments: No complaints with the shoulder today and still having no pain. Pain Pain Assessment Pain Assessment: No/denies pain Treatment Therapeutic Exercise Therapeutic Exercise Activity 1: Nu-step Activity 1 Comment: Seat 14-->12 (UE at 12) Lvl 1 8 min total Therapeutic Exercise Activity 7: Shoulder raises Activity 7 Comment: at wall #3 DB 2x10 flexion and scaption Therapeutic Exercise Activity 8: Push up plus at edge of plinth Activity 8 Comment: 3x10 Therapeutic Exercise Activity 9: Houghstons Activity 9 Comment: #2 DB 2x10 ea Assessment PT Assessment PT Assessment: Good tolerance to all shoulder exercises. Demonstrating improved form and scapular stability with exercises. No pain or symptoms with putting weight through during plinth push ups. Progressing well towards improved stability and recovery post surgery. Plan Plan PT Plan: add body blade for shoulder stab General/Ortho Patient will improve LUE MMT to 5/5 in all planes to facilitate safe return to sport. (Progressing) Start: 04/16/22 Expected End: 07/16/22 General/Ortho Patient will increase Left shoulder ER AROM to 75 degrees or > to be able to improve joint mobility with ADL's and sporting activities. (Progressing) Start: 06/16/22 Expected End: 07/16/22 Time Entry Total Treatment Time Start Time: 1600 Stop Time: 1627 Time Calculation (min): 27 min PT Therapeutic Procedures Time Entry Therapeutic Exercise Time Entry: 27 Malika Gramajo PT documented in this encounter [facility] 07-02-2022 History of Present illness Narrative Images from the original note were not included. [facility] [place] [facility] AT [address] [place] [address] Dept: [phone] Dept PHYSICAL THERAPY TREATMENT NOTE Patient Name: Charley Gutierrez : 2005 Today's Date: 07/02/2022 Subjective General Visit Information General Chart Reviewed: Yes Reason for referral/mechanism of injury: Patient presents today 2 weeks s/p left shoulder anterior labral repair on 04/02/22. He presents with father today who reports this past summer the patient fell and dislocated the shoulder with rollerskating. The shoulder was put back in place, he then discloated the shoulder again during football. Went to the ER, they said it wasnt dislocated and he was released back to play football. He then injured the shoulder again during football. Went to the chiropractor, they did massage and then referred out to Dr. Lu. Dr. Lu then referred to Dr. Johnson. Surgery performed on 04/02/22 to repair left anterior labrum. He presents today donning left shoulder sling, with no post operative complications reported. Just had a follow up with ortho office the other day, sutures were removed. Pain since the surgery comes and goes. He has been compliant with sling use, only icing as needed. He is right hand dominant. Currently requiring assist with all ADL's due to inability to use the LUE. 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 Patient preferences: New Rx orders: WBAT LLE in KI. Ok to quad strengthen, continue w/ knee flexion (aggressive) General Comments: Had follow up with Dr. Sigala and he states he is behind with motion and very weak. Ok to start strengthening. Patient has been working on bending at home. Has been elevating, however not icing. Swelling still present. Pain Pain Assessment Pain Assessment: No/denies pain Treatment Therapeutic Exercise Therapeutic Exercise Activity 1: Nu-step Activity 1 Comment: Seat 14-->12 (UE at 13) Lvl 1 7 min total Therapeutic Exercise Activity 2: Knee flexion ROM Activity 2 Comment: prolonged stretch (high mat to seat) 1min, 1x10 slow lowering w/ PT/gravity assist, supine heel slides (PT assist) 1x5 Therapeutic Exercise Acitivity 3: Quad strength Activity 3 Comment: Long sit QS (w/ RLE) 3 2x10 Balance/Neuromuscular Re-Education # of Activities: 1 Balance/Neuromuscular Re-Education Activity 1: [place] Citizen for quad Neuro-Ed Activity 1 Comment: 04/12 on/off 0.5 ramp Normal setting 8 min (2 electrodes: 1 over VMO 1 over quad motor point) Assessment PT Assessment PT Assessment: Initiated Nu-step for knee ROM now that strengthening restrictions lifted. Able to achieve about 45 degrees flexion on Nu-step. Patient fearful and hesistant to bend the knee still. Significant muscle guarding present during all ROM exercises, especially with PT assist. Quad strengthening initiated with quad sets added to HEP and [place] E-stim. Fair quad contraction visibally present. distal quad atrophy evident. Good tolerance to [place]. Educated both patient and grandparent about new PT protocol instructions and to continue to follow KI instructions and to try to use the LLE more now that can activate the quad. Plan Plan PT Plan: SAQ w/ PT assist, trial STM with knee flexion PROM, progress [place] to co-contract with QS if able General/Ortho Patient will report 85% or > return to PLOF. (Progressing) Start: 06/16/22 Expected End: 09/14/22 Patient will report decreased pain at 1/10 or < in left knee to be able to improve tolerance to daily activities and allow for therapy progressions. (Progressing) Start: 06/16/22 Expected End: 09/14/22 Patient will increase ROM of left knee to 0-120 be able to normalize gait mechanics and improve functional mobility. (Progressing) Start: 06/16/22 Expected End: 09/14/22 Patient will increase strength in LLE to 5/5 to be able to ensure safe transfers and return to recreational activities. (Progressing) Start: 06/16/22 Expected End: 09/14/22 Gait: Patient will demonstrate ability to ambulate with no evident gait deviations present utilizing no assistive device. (Progressing) Start: 06/16/22 Expected End: 09/14/22 Balance: Patient will improve SLS to >20 sec to improve safety with transfers and stair negotiation. (Progressing) Start: 06/16/22 Expected End: 09/14/22 Functional Outcome Measure: Patient will improve LEFS to >60. (Progressing) Start: 06/16/22 Expected End: 09/14/22 Time Entry Total Treatment Time Start Time: 1630 Malika Gramajo PT documented in this encounter [facility] 07-02-2022 History of Present illness Narrative Images from the original note were not included. [facility] [place] [facility] AT [place] [address] [place] [address] Dept: [phone] Dept PHYSICAL THERAPY TREATMENT NOTE Patient Name: Charley Gutierrez : 2005 Today's Date: 07/02/2022 Subjective General Visit Information General Chart Reviewed: Yes Reason for referral/mechanism of injury: Patient presents today 2 weeks s/p left shoulder anterior labral repair on 04/02/22. He presents with father today who reports this past summer the patient fell and dislocated the shoulder with rollerskating. The shoulder was put back in place, he then discloated the shoulder again during football. Went to the ER, they said it wasnt dislocated and he was released back to play football. He then injured the shoulder again during football. Went to the chiropractor, they did massage and then referred out to Dr. Lu. Dr. Lu then referred to Dr. Johnson. Surgery performed on 04/02/22 to repair left anterior labrum. He presents today donning left shoulder sling, with no post operative complications reported. Just had a follow up with ortho office the other day, sutures were removed. Pain since the surgery comes and goes. He has been compliant with sling use, only icing as needed. He is right hand dominant. Currently requiring assist with all ADL's due to inability to use the LUE. 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 Patient preferences: New Rx orders: WBAT LLE in KI. Ok to quad strengthen, continue w/ knee flexion (aggressive) General Comments: Had follow up with Dr. Sigala and he states he is behind with motion and very weak. Ok to start strengthening. Patient has been working on bending at home. Has been elevating, however not icing. Swelling still present. Pain Pain Assessment Pain Assessment: No/denies pain Treatment Therapeutic Exercise Therapeutic Exercise Activity 1: Nu-step Activity 1 Comment: Seat 14-->12 (UE at 13) Lvl 1 7 min total Therapeutic Exercise Activity 2: Knee flexion ROM Activity 2 Comment: prolonged stretch (high mat to seat) 1min, 1x10 slow lowering w/ PT/gravity assist, supine heel slides (PT assist) 1x5 Therapeutic Exercise Acitivity 3: Quad strength Activity 3 Comment: Long sit QS (w/ RLE) 3 2x10 Balance/Neuromuscular Re-Education # of Activities: 1 Balance/Neuromuscular Re-Education Activity 1: [place] for quad Neuro-Ed Activity 1 Comment: 04/12 on/off 0.5 ramp Normal setting 8 min (2 electrodes: 1 over VMO 1 over quad motor point) Assessment PT Assessment PT Assessment: Initiated Nu-step for knee ROM now that strengthening restrictions lifted. Able to achieve about 45 degrees flexion on Nu-step. Patient fearful and hesistant to bend the knee still. Significant muscle guarding present during all ROM exercises, especially with PT assist. Quad strengthening initiated with quad sets added to HEP and [place] E-stim. Fair quad contraction visibally present. distal quad atrophy evident. Good tolerance to [place]. Educated both patient and grandparent about new PT protocol instructions and to continue to follow KI instructions and to try to use the LLE more now that can activate the quad. Plan Plan PT Plan: SAQ w/ PT assist, trial STM with knee flexion PROM, progress [place] to co-contract with QS if able General/Ortho Patient will report 85% or > return to PLOF. (Progressing) Start: 06/16/22 Expected End: 09/14/22 Patient will report decreased pain at 1/10 or < in left knee to be able to improve tolerance to daily activities and allow for therapy progressions. (Progressing) Start: 06/16/22 Expected End: 09/14/22 Patient will increase ROM of left knee to 0-120 be able to normalize gait mechanics and improve functional mobility. (Progressing) Start: 06/16/22 Expected End: 09/14/22 Patient will increase strength in LLE to 5/5 to be able to ensure safe transfers and return to recreational activities. (Progressing) Start: 06/16/22 Expected End: 09/14/22 Gait: Patient will demonstrate ability to ambulate with no evident gait deviations present utilizing no assistive device. (Progressing) Start: 06/16/22 Expected End: 09/14/22 Balance: Patient will improve SLS to >20 sec to improve safety with transfers and stair negotiation. (Progressing) Start: 06/16/22 Expected End: 09/14/22 Functional Outcome Measure: Patient will improve LEFS to >60. (Progressing) Start: 06/16/22 Expected End: 09/14/22 Time Entry Total Treatment Time Start Time: 1630 Malika Gramajo PT documented in this encounter [employer] [facility] [place] 07-02-2022 History of Present illness Narrative Images from the original note were not included. [facility] [place] [facility] [place] [address] [place] [address] Dept: [phone] Dept PHYSICAL THERAPY TREATMENT NOTE Patient Name: Charley Gutierrez : 2005 Today's Date: 07/02/2022 Subjective General Visit Information General Chart Reviewed: Yes Reason for referral/mechanism of injury: Patient presents today 2 weeks s/p left shoulder anterior labral repair on 04/02/22. He presents with father today who reports this past summer the patient fell and dislocated the shoulder with rollerskating. The shoulder was put back in place, he then discloated the shoulder again during football. Went to the ER, they said it wasnt dislocated and he was released back to play football. He then injured the shoulder again during football. Went to the chiropractor, they did massage and then referred out to Dr. Lu. Dr. Lu then referred to Dr. Johnson. Surgery performed on 04/02/22 to repair left anterior labrum. He presents today donning left shoulder sling, with no post operative complications reported. Just had a follow up with ortho office the other day, sutures were removed. Pain since the surgery comes and goes. He has been compliant with sling use, only icing as needed. He is right hand dominant. Currently requiring assist with all ADL's due to inability to use the LUE. 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 General Comments: Patient followed up with Dr. Johnson and that went well. States strength and motion look good. He is able to get back into lifting weights at a slow cautious speed. Pain Pain Assessment Pain Score: 0 - No pain Treatment Therapeutic Exercise Therapeutic Exercise Activity 2: UBE Activity 2 Comment: Lvl 4 2'/2' (fwd/bkwd) Therapeutic Exercise Acitivity 3: Ball on wall, 4 way Activity 3 Comment: YMB 30x1 ea Therapeutic Exercise Activity 7: Shoulder raises Activity 7 Comment: at wall #3 DB 2x10 flexion and scaption Therapeutic Exercise Activity 8: Push up plus at edge of plinth Activity 8 Comment: 3x10 Therapeutic Exercise Activity 9: Houghstons Activity 9 Comment: 2x10 ea Therapeutic Exercise Activity 10: Wall walks GTB (MEDIA SERVICES DIRECTOR, d/t time) Activity 10 Comment: 2x10 ea [address] Assessment PT Assessment PT Assessment: Pt arrived late to PT, so shortened treatment session. Progressing well with scapular stabilization. Fatigue reported with ball on wall stab exercise. No pain with any exercises this visit. Plan Plan PT Plan: add body blade and shoulder taps w/ plank to edge of plinth General/Ortho Patient will improve LUE MMT to 5/5 in all planes to facilitate safe return to sport. (Progressing) Start: 04/16/22 Expected End: 07/16/22 General/Ortho Patient will increase Left shoulder ER AROM to 75 degrees or > to be able to improve joint mobility with ADL's and sporting activities. (Progressing) Start: 06/16/22 Expected End: 07/16/22 Time Entry Total Treatment Time Start Time: 1610 Stop Time: 1625 Time Calculation (min): 15 min PT Therapeutic Procedures Time Entry Therapeutic Exercise Time Entry: 15 Malika Gramajo PT documented in this encounter [facility] [employer] 06-30-2022 History of Present illness Narrative Images from the original note were not included. [facility] [place] [facility] AT [address] [place] [address] Dept: [phone] Dept PHYSICAL THERAPY TREATMENT NOTE Patient Name: Charley Gutierrez : 2005 Today's Date: 06/30/2022 Subjective General Visit Information General Chart Reviewed: Yes Reason for referral/mechanism of injury: Patient presents today 2 weeks s/p left shoulder anterior labral repair on 04/02/22. He presents with father today who reports this past summer the patient fell and dislocated the shoulder with rollerskating. The shoulder was put back in place, he then discloated the shoulder again during football. Went to the ER, they said it wasnt dislocated and he was released back to play football. He then injured the shoulder again during football. Went to the chiropractor, they did massage and then referred out to Dr. Lu. Dr. Lu then referred to Dr. Johnson. Surgery performed on 04/02/22 to repair left anterior labrum. He presents today donning left shoulder sling, with no post operative complications reported. Just had a follow up with ortho office the other day, sutures were removed. Pain since the surgery comes and goes. He has been compliant with sling use, only icing as needed. He is right hand dominant. Currently requiring assist with all ADL's due to inability to use the LUE. 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 Family/Caregiver Present: Yes Patient preferences: Post op precautions L knee: WBAT in knee immobilizer, NO ACTIVE EXTENSION, ok to progress knee flexion ROM 20 degrees each week Fall risk: No General Comments: Pt states he saw doctor prior to session and would like clarification if knee extension is allowed after doctor asked pt to perform SLR during his visit. Pt will have another f/u visit with knee surgeon on July 28. Pt guardian also states the doctor put in a new order for physical therapy for the pt. Pt guardian also states f/u for shoulder will be in August or September. Pain Objective Therapeutic Activity Therapeutic Activity 2: Heel Slides with SOS strap Activity 2 Comment: 3x10; 1 set with clinician assist (Pt able to get to 40 degrees with strap) Soft Tissue Mobilization Location: Left knee (swelling management), patellar mobilization Body Position: Supine Joint Mobilization Location: Left knee PROM Body Position: Sitting Comments: assisted knee flexion and PROM from therapist, sitting on edge of plinth and supine (Supine PROM measured at 40 degrees 06/30/22) Modalities Cryotherapy (parameters): ice pack on left knee with plinth elevated in supine 7' Assessment PT Assessment PT Assessment: Pt is progrssing with knee flexion via performing heel slides with SOS strap to 40 degrees this session. Clinician assisted heel slides also were measured to 40 degrees. PROM was performed to increase knee flexion ROM and precautions were followed this visit for no active extension per protocol. STM and ice with elevation were used this session for both pain relief and edema management at this time. Plan Plan PT Plan: Knee: flexion range of 40-60 degrees next visit. Follow up with physician for new order and if new precautions. General/Ortho Patient will report 85% or > return to PLOF. (Progressing) Start: 06/16/22 Expected End: 09/14/22 Patient will report decreased pain at 1/10 or < in left knee to be able to improve tolerance to daily activities and allow for therapy progressions. (Progressing) Start: 06/16/22 Expected End: 09/14/22 Patient will increase ROM of left knee to 0-120 be able to normalize gait mechanics and improve functional mobility. (Progressing) Start: 06/16/22 Expected End: 09/14/22 Patient will increase strength in LLE to 5/5 to be able to ensure safe transfers and return to recreational activities. (Not Addressed) Start: 06/16/22 Expected End: 09/14/22 Gait: Patient will demonstrate ability to ambulate with no evident gait deviations present utilizing no assistive device. (Progressing) Start: 06/16/22 Expected End: 09/14/22 Balance: Patient will improve SLS to >20 sec to improve safety with transfers and stair negotiation. (Progressing) Start: 06/16/22 Expected End: 09/14/22 Functional Outcome Measure: Patient will improve LEFS to >60. (Progressing) Start: 06/16/22 Expected End: 09/14/22 Time Entry Total Treatment Time Start Time: 1623 Stop Time: 1655 Time Calculation (min): 32 min PT Modalities Time Entry Hot/Cold Pack Time Entry: 7 PT Therapeutic Procedures Time Entry Therapeutic Activity Time Entry: 10 Manual Therapy Time Entry: 15 Ce Breen PTA documented in this encounter [facility] [employer] 06-30-2022 History of Present illness Narrative Images from the original note were not included. [facility] [place] [facility] [place] [address] [place] [address] Dept: [phone] Dept PHYSICAL THERAPY TREATMENT NOTE Patient Name: Charley Gutierrez : 2005 Today's Date: 06/30/2022 Subjective General Visit Information General Chart Reviewed: Yes Reason for referral/mechanism of injury: Patient presents today 2 weeks s/p left shoulder anterior labral repair on 04/02/22. He presents with father today who reports this past summer the patient fell and dislocated the shoulder with rollerskating. The shoulder was put back in place, he then discloated the shoulder again during football. Went to the ER, they said it wasnt dislocated and he was released back to play football. He then injured the shoulder again during football. Went to the chiropractor, they did massage and then referred out to Dr. Lu. Dr. Lu then referred to Dr. Johnson. Surgery performed on 04/02/22 to repair left anterior labrum. He presents today donning left shoulder sling, with no post operative complications reported. Just had a follow up with ortho office the other day, sutures were removed. Pain since the surgery comes and goes. He has been compliant with sling use, only icing as needed. He is right hand dominant. Currently requiring assist with all ADL's due to inability to use the LUE. 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 Family/Caregiver Present: No Patient preferences: Post op precautions L knee: WBAT in knee immobilizer, NO ACTIVE EXTENSION, ok to progress knee flexion ROM 20 degrees each week Fall risk: No General Comments: No complaints with shoulder this visit. Pt states he had doctors appointments for both shoulder and knee stating that PT could focus more on knee rather than shoulder. Pain none Objective Therapeutic Exercise # of Activities: 11 Therapeutic Exercise Activity 6: Wall Ball 4 way RMB Activity 6 Comment: 30x1 ea Therapeutic Exercise Activity 8: Counter Pushup plus Activity 8 Comment: 3x10 Therapeutic Exercise Activity 9: Houghstons Activity 9 Comment: 2x10 ea Therapeutic Exercise Activity 10: Wall walks GTB Activity 10 Comment: 2x10 e[address] Therapeutic Exercise Activity 11: UBE Activity 11 Comment: lvl 4 3 fwd/2 retro Assessment PT Assessment PT Assessment: Pt is progressing with shoulder strengthening via performing houstons and wall walks with good tolerance and required min. vc for correct form. Pt tolerated session well. Plan Plan PT Plan: Shoulder: progress strengthening as tolerated per protocol. General/Ortho Patient will improve LUE MMT to 5/5 in all planes to facilitate safe return to sport. (Progressing) Start: 04/16/22 Expected End: 07/16/22 General/Ortho Patient will increase Left shoulder ER AROM to 75 degrees or > to be able to improve joint mobility with ADL's and sporting activities. (Progressing) Start: 06/16/22 Expected End: 07/16/22 Time Entry Total Treatment Time Start Time: 1601 Stop Time: 1624 Time Calculation (min): 23 min PT Therapeutic Procedures Time Entry Therapeutic Exercise Time Entry: 23 Ce Breen PTA documented in this encounter [facility] [employer] 06-30-2022 History of Present illness Narrative Subjective: Charley is approximately 6wks from ORIF left quadriceps tendon rupture, excision left patella fragment and arthrotomy left knee with irrigation and debridement of knee and open patella fracture. His surgery was on 05/10/22. Pain is mild. He denies numbness or tingling since surgery. He has no new complaints. Review of Systems Objective: BP (!) 136/80 Pulse (!) 97 Temp 37.2 C (98.9 F) Ht 6' (1.829 m) Wt 160 lb (72.6 kg) BMI 21.70 kg/m Incision is healing appropriately without concern for infection. There is no drainage or erythema. Swelling: moderate. Sensation is intact to all distal dermatomes. Skin is warm and dry with brisk capillary refill to all digits in the surgical extremity. Charley is not able to perform a straight leg. Strength 1/5. Range of motion shows knee flexion of 20 and extension of 0. Assessment 1. Quadriceps tendon rupture, left, subsequent encounter Plan Orders Placed This Encounter Procedures Ambulatory referral to Physical Therapy He is somewhat behind with his range of motion and his quad is extremely weak. PT orders given. We will progress knee flexion as tolerated and add active extension and strengthening. Once strength is approximately 75% of the normal leg we will allow weight bearing without the brace. Charley will return in 4 wks. Electronically signed by Jung Sigala M.D. 06/30/2022 at 10:18 AM. documented in this encounter [facility] 06-30-2022 History of Present illness Narrative [facility] [place] [address] [facility] [facility] [address] Dept: [phone] Dept 06/30/2022 Chief Complaint Patient presents with Follow-up DOS 04/02/2022 Left shoulder anterior labral repair/capsulorrhaphy x 4 anchors SUBJECTIVE Charley is approximately 12.5 weeks s/p left shoulder anterior labral repair/capsulorrhaphy x 4 anchors. Pain is nonexistent. He is no longer taking anything for pain. He denies drainage from his incisions. He denies significant complaints other than the expected amount of pain. The patient denies fevers, chills, or night sweats. Physical therapy is at [facility] two days a week. He reports that he is splitting his therapy in half with regards to his left knee and left shoulder. He sees Dr. Sigala later this morning for postop check for his knee. Sane score: 85 OBJECTIVE BP (!) 122/84 Ht 6' (1.829 m) Wt 160 lb (72.6 kg) BMI 21.70 kg/m Ortho Exam Focused Exam of the Left Upper Extremity Skin: appropriately healed incision(s) without evidence of infection Edema: no evidence of edema Palpation: non tender to palpation throughout. Negative homans signs bilaterally. ROM: full functional ROM of the elbow, wrist, and hand ROM: RIGHT LEFT Forward Elevation AROM 170 PROM Same AROM 160 PROM 170 External rotation at 0 degrees of Adduction AROM 60 PROM Same AROM 30 PROM Same External rotation at 90 degrees of Abduction AROM 80 PROM Same AROM 70 PROM Same Internal Rotation at 90 degrees of Abduction AROM 80 PROM Same AROM 70 PROM Same Internal Rotation Low Thoracic Low Thoracic Stability: no evidence of joint instabilities. Negative apprehension Motor: Intact in the hand - able to fire AIN, PIN, and Ulnar nerves Shoulder Motor: RIGHT LEFT Supraspinatus Full strength Full strength Infraspinatus Full strength Full strength Subscapularis Full strength Full strength Sensation: normal in the median, ulnar, and radial nerve distributions Perfusion: Brisk capillary refill in all 5 digits IMAGING NONE ASSESSMENT Diagnosis Plan 1. Instability of left shoulder joint 2. Tear of left glenoid labrum, subsequent encounter PLAN Charley is approximately 3-month status post left shoulder labral repair. Overall he is happy with his progress. He has improving range of motion and strength on exam. He understands he is still healing and not cleared for full or unrestricted activities. He will progress per PT protocol. He will continue with follow-up and therapy with Dr. Sigala for his left knee. I would like to see him back 3 months to check his progress and all his questions were answered otherwise. Immobilization: NO immobilization required at this point - FULL ROM encouraged without restrictions Weight Bearing: Progress per protocol Rehabilitation: PT continue to follow protocol. Follow-up: Charley will followup with me in 3 months. He knows to call the office with any questions or concerns in the interim. Future Imaging: NONE Jamilah Johnson MD Orthopaedic Sports Medicine [facility] Department of Orthopaedics and Sports Medicine 06/30/2022 at 9:05 AM (Please note that portions of this note may have been completed with a voice recognition program. Efforts were made to edit the dictations but occasionally words are mis-transcribed.) documented in this encounter [facility] 06-25-2022 History of Present illness Narrative Images from the original note were not included. [facility] AT [address] [place] [address] Dept: [phone] Dept PHYSICAL THERAPY TREATMENT NOTE Patient Name: Charley Gutierrez : 2005 Today's Date: 06/25/2022 Subjective General Visit Information General Chart Reviewed: Yes Reason for referral/mechanism of injury: Patient presents today 2 weeks s/p left shoulder anterior labral repair on 04/02/22. He presents with father today who reports this past summer the patient fell and dislocated the shoulder with rollerskating. The shoulder was put back in place, he then discloated the shoulder again during football. Went to the ER, they said it wasnt dislocated and he was released back to play football. He then injured the shoulder again during football. Went to the chiropractor, they did massage and then referred out to Dr. Lu. Dr. Lu then referred to Dr. Johnson. Surgery performed on 04/02/22 to repair left anterior labrum. He presents today donning left shoulder sling, with no post operative complications reported. Just had a follow up with ortho office the other day, sutures were removed. Pain since the surgery comes and goes. He has been compliant with sling use, only icing as needed. He is right hand dominant. Currently requiring assist with all ADL's due to inability to use the LUE. 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 Family/Caregiver Present: Yes Patient preferences: Post op precautions L knee: WBAT in knee immobilizer, NO ACTIVE EXTENSION, ok to progress knee flexion ROM 20 degrees each week General Comments: Pain mostly a 1/10 in the left knee, swelling still present. Has not been elevating it. Has been mostly bending it at home seated vs. lying down. Pain Pain Assessment Pain Score: 1 Treatment Soft Tissue Mobilization Location: Left knee (swelling management), patellar mobilization Body Position: Supine Joint Mobilization Location: Left knee PROM Body Position: Sitting Comments: assisted knee flexion and PROM from therapist, sitting on edge of plinth and supine, measured 30 degrees Modalities Cryotherapy (parameters): ice pack on left knee with plinth elevated in supine 10' Assessment PT Assessment PT Assessment: Knee treatment emphasis on progressing per protocol to 40 degrees of knee flexion. Able to achieve 30 degrees this visit. Still having moderate swelling and poor compliance noted from both patient and mom for at home swelling management. STM this visit included for swelling and soft tissue restrictions. Pain and swelling currently limiting mobility during manual knee flexion PROM. Plan Plan PT Plan: knee: progress 40-60 degrees of knee flexion next visit still assisting with knee extension General/Ortho Patient will report 85% or > return to PLOF. (Progressing) Start: 06/16/22 Expected End: 09/14/22 Patient will report decreased pain at 1/10 or < in left knee to be able to improve tolerance to daily activities and allow for therapy progressions. (Progressing) Start: 06/16/22 Expected End: 09/14/22 Patient will increase ROM of left knee to 0-120 be able to normalize gait mechanics and improve functional mobility. (Progressing) Start: 06/16/22 Expected End: 09/14/22 Patient will increase strength in LLE to 5/5 to be able to ensure safe transfers and return to recreational activities. (Progressing) Start: 06/16/22 Expected End: 09/14/22 Gait: Patient will demonstrate ability to ambulate with no evident gait deviations present utilizing no assistive device. (Progressing) Start: 06/16/22 Expected End: 09/14/22 Balance: Patient will improve SLS to >20 sec to improve safety with transfers and stair negotiation. (Progressing) Start: 06/16/22 Expected End: 09/14/22 Functional Outcome Measure: Patient will improve LEFS to >60. (Progressing) Start: 06/16/22 Expected End: 09/14/22 Time Entry Total Treatment Time Start Time: 1608 Stop Time: 1640 Time Calculation (min): 32 min PT Modalities Time Entry Hot/Cold Pack Time Entry: 10 (on plinth w/ legs elevated above heart) Malika Gramajo PT documented in this encounter [facility] 06-25-2022 History of Present illness Narrative Images from the original note were not included. [facility] [place] [facility] AT [address] [place] [address] Dept: [phone] Dept PHYSICAL THERAPY TREATMENT NOTE Patient Name: Charley Gutierrez : 2005 Today's Date: 06/25/2022 Subjective General Visit Information General Chart Reviewed: Yes Reason for referral/mechanism of injury: Patient presents today 2 weeks s/p left shoulder anterior labral repair on 04/02/22. He presents with father today who reports this past summer the patient fell and dislocated the shoulder with rollerskating. The shoulder was put back in place, he then discloated the shoulder again during football. Went to the ER, they said it wasnt dislocated and he was released back to play football. He then injured the shoulder again during football. Went to the chiropractor, they did massage and then referred out to Dr. Lu. Dr. Lu then referred to Dr. Johnson. Surgery performed on 04/02/22 to repair left anterior labrum. He presents today donning left shoulder sling, with no post operative complications reported. Just had a follow up with ortho office the other day, sutures were removed. Pain since the surgery comes and goes. He has been compliant with sling use, only icing as needed. He is right hand dominant. Currently requiring assist with all ADL's due to inability to use the LUE. 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 General Comments: No complaints with the shoulder. States exercises have been feeling good, no pain. Pain Pain Assessment Pain Score: 0 - No pain Treatment Therapeutic Exercise Therapeutic Exercise Activity 5: Cable column Activity 5 Comment: standing rows #25 2x10, SAPD #35 2x10; ER #10 2x10 Therapeutic Exercise Activity 6: Wall Ball 4 way GMB Activity 6 Comment: 30x1 ea Therapeutic Exercise Activity 7: Shoulder raises Activity 7 Comment: at wall #3 DB 1x10 flexion and scaption Therapeutic Exercise Activity 8: Counter Pushup plus (MEDIA SERVICES DIRECTOR) Activity 8 Comment: 3x10 Assessment PT Assessment PT Assessment: Verbal and tactile Cueing required for proper scapular setting and maintenance during strengthening exercises. Decreased weight with rows and SAPD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 post operatively are encouraged. CYNTHIA STOCKINGS CYNTHIA stockings are to be worn for the first 2 weeks after surgery. They aid in controlling lower extremity swelling and decrease the chances of blood clot formation. You may remove them to shower and may remove them during sleep overnight, but please wear them at all times during the day the first 2 weeks after surgery. DIET You may eat a regular diet following your surgery. Begin with clear liquids and light foods such as jello and soups and progress to your normal diet if you are not nauseated. Please drink plenty of non-alcoholic, non-caffeinated beverages such as 6-8 glasses of water daily. Please do not consume alcohol with your pain medications. ICE MANAGEMENT Ice your operative site 5-6 times a day 20 minutes at a time. An ice machine will be provided to you post operatively. This will help decrease swelling and pain after your surgery. Use the ice machine as much as possible when you get home at intervals of 20 minutes. You should perform this consistently for a minimum of two weeks after surgery. Please do not put ice directly on your skin. COMMON QUESTIONS AND ANSWERS When Can I drive after surgery? For larger shoulder surgeries like a shoulder stabilization surgery, driving can safely be resumed 4-6 weeks after surgery. This is dependent on which arm was operated on (dominant versus non dominant), the frequency and distance you will be driving, and your confidence level using your operative arm for support only. You must also be off of narcotic pain medications prior to driving. We often recommend practicing in an empty parking lot before getting on the roads for the first time if there is any question in your ability and comfort level. There can be NO HESITATION! When Can I go back to work? This is dependent on your surgery and what type of work you do, but generally speaking for an arthroscopic surgery, you can return to a sedentary desk job or sitting job anywhere from 1-3 weeks if you can return in your sling and not use the surgical arm for more than lifting or holding a file or some papers. A job where you are on your feet may be 3-6 weeks and a high demand overhead job may be as long as 2-4 months. You must comply with the rehab protocol and post op restrictions with regards to your job. documented in this encounter [facility] Work Phone: 03-25-2022 Hospital Discharge instructions Aury Menezes RN - 03/25/2022 1:58 PM EDT HOLD NAPROXEN, NAPROSYN, ALEVE FOR 3 DAYS BEFORE SURGERY MAY TAKE TYLENOL NEEDED FOR PAIN MAY TAKE ALL OTHER MEDICATIONS PRESCRIBED ARRIVE 1.5 HOURS PRIOR TO SURGERY BE AT THE HOSPITAL AT 6:00 am use door number 2 Check in at registration using photo ID and insurance card Have a responsible adult that will be able to take you home and will be able to stay with you when you are home. NO FOOD AFTER MIDNIGHT THE NIGHT BEFORE SURGERY This includes candy, gum, and mints MAY have CLEAR LIQUIDS (WATER, APPLE JUICE, CRANBERRY JUICE, BLACK COFFEE, TEA, CARBONATED POP GATORADE) To drink until arrival time for surgery *(NOTE: IF YOU ARE A DIABETIC AVOID HIGH SUGAR BEVERAGES)* Wear loose comfortable clean clothing that you can go home in Leave all jewelry, contact lenses and valuables at home Only one visitor is permitted at this time Bring printed medication list with you Write the date and times of last dose DO NOT USE alcohol, recreational drugs or tobacco products for 24 hours before surgery Please write down any questions that you may have for your surgeon, anesthesiologist, Etc. documented in this encounter [facility] Work Phone: 02-25-2022 Note HNO ID: [id number] Author: GRIFFIN Hawkins Service: Radiology Author Type: Technologist Type: Progress Notes Filed: 02/25/2022 8:44 PM Note Text: Radiology Service Progress Note PATIENT NAME: Charley Gutierrez DATE OF SERVICE: February 25, 2022 TIME: 8:44 PM PATIENT IDENTITY VERIFICATION COMPLETED USING TWO (2) IDENTIFIERS: Name and Date of confirmed by patient verbally and Name and Date of confirmed by identification band. FALL SCREENING: Has the patient had 2 falls in the last year or 1 fall with injury or currently using an Ambulatory Assistive Device (Walker, Cane, Wheelchair, Crutches, etc.)? No PATIENT GENDER DATA: Male PATIENT RELEVANT IMPLANT DATA REVIEWED: Yes RADIOLOGY DEPARTMENT: MR; Exam(s) Completed: Upper MSK: Shoulder, left PERIPHERAL IV DATA: Not applicable SIGNED BY: Micki OZUNA February 25, 2022 8:44 PM [facility] 02-25-2022 History of Present illness Narrative Radiology Service Progress Note PATIENT NAME: Charley Gutierrez DATE OF SERVICE: February 25, 2022 TIME: 8:44 PM PATIENT IDENTITY VERIFICATION COMPLETED USING TWO (2) IDENTIFIERS: Name and Date of confirmed by patient verbally and Name and Date of confirmed by identification band. FALL SCREENING: Has the patient had 2 falls in the last year or 1 fall with injury or currently using an Ambulatory Assistive Device (Walker, Cane, Wheelchair, Crutches, etc.)? No PATIENT GENDER DATA: Male PATIENT RELEVANT IMPLANT DATA REVIEWED: Yes RADIOLOGY DEPARTMENT: MR; Exam(s) Completed: Upper MSK: Shoulder, left PERIPHERAL IV DATA: Not applicable SIGNED BY: Micki OZUNA February 25, 2022 8:44 PM documented in this encounter [facility] 02-04-2022 History of Present illness Narrative WELL VISIT PEDIATRIC MALE 14-17 YRS OLD SERVICE DATE: 02/04/2022 Charley is a 16 year old male who presents today for well exam accompanied by his mother. SUBJECTIVE CONCERNS: wart on right hand HISTORY There is no problem list on file for this patient. PAST MEDICAL HISTORY Diagnosis Date Concussion 07/31/2017 NEGATIVE HISTORY OF 12-25-2013 Normal Color Vision Routine or ritual circumcision Unspecified and jaundice PAST SURGICAL HISTORY Procedure Laterality Date CIRCUMCISION W/CLAMP/OTH DEV W/BLOCK ALLERGIES No Known Allergies Medications: No prescriptions on file. FAMILY HISTORY Problem Relation Age of Onset Diabetes Other mggm Social History Social History Narrative Not on file Smoking Exposure: Does your child spend a significant amount of time in the care of anyone who smokes? Yes -Who uses tobacco products? grandparents -Are you interesting in quitting? No -Do you have a smoke-free home rule in place? Yes -Do you have a smoke-free car rule in place? Yes School: Grade: 11th; grades A, B, and C. Physical Activity: more than 1 hour of physical activity per day Screen Time totaling more than 2 hours of screen time per day. Safety: Pediatric SDOH - Response to gun questions 02/04/2022 Are there any guns kept in or around your home or where your child spends time? No Reviewed seat belts and smoke detectors Diet: -Eats 3 meals per day and few snacks per day -Typical beverages include water, milk, and sugar containing beverages -Fruits and vegetables are eaten with nearly every meal and eaten as snacks -# of fast food meals/week: 2 -Vitamins/Supplements: none Elimination: no concerns, normal size and consistency Dental: dental care current Sleep: -no sleep concerns Substance use: none High risk behaviors: none Sexual History: Attraction: female Sexually Active: Yes Number of lifetime partners: 2 Contraception: condoms every time History of STI: No Hx of STI/HIV testing? No Any new partners since last testing? No Penile discharge: No Body image: satisfactory Screening tools reviewed and discussed with patient/[id number] and Social Determinants of Health. Please see Patient Entered Data. REVIEW OF SYSTEMS GENERAL: No fevers EYES: No vision concerns ENT: No hearing concerns RESPIRATORY: Negative for cough, wheezing or respiratory distress CARDIOVASCULAR: Negative for chest pain, syncope, lightheadness or heart racing SKIN: Negative for lesions, rash, and itching ENDOCRINE: No growth concerns OBJECTIVE Physical Exam: BP 112/52 Pulse 78 Temp 36.9 C (98.5 F) (Temporal) Resp 16 Ht 184 cm (6' 0.44) Wt 77.8 kg (171 lb 8 oz) BMI 22.98 kg/m Blood pressure percentiles are 33 % systolic and 6 % diastolic based on the 2017 AAP Clinical Practice Guideline. This reading is in the normal blood pressure range. General: Well developed, No acute distress Head: normocephalic Eyes: conjunctivae/corneas clear Ears: normal external ear and canal, tympanic membranes with normal landmarks Nose: no erythema or rhinorrhea Oropharynx: moist mucous membranes, no erythema or exudate Neck: Supple, no adenopathy; thyroid symmetric, normal size, no bruits Spine: Back symmetric, no curvature Resp: lungs clear to auscultation Heart: RRR, normal S1 and S2. , No murmurs Chest: symmetric, no lesions Abdomen: Soft, nontender, nondistended, no palpable organomegaly or masses, normal bowel sounds Genitalia: Rip stage IV, no testicular masses or hernias Extremities: No clubbing, cyanosis, or edema., No deformities or skin discoloration. Good capillary refill. Full range of motion. Neuro: No focal deficits or abnormal findings present Skin: wart right hand base of 3/4 digit dorsal side, 1/2 cm ASSESSMENT Encounter for routine child health examination w/o abnormal findings (primary encounter diagnosis) Encounter for immunization Routine screening for sti (sexually transmitted infection) Other viral warts PLAN GC/CT urine screen - presentally asymptomatic Based on PHQ-A Score: 0 (recommended cut off score is 11) and interview, presentation is not consistent with depression - Adolescent anticipatory guidance discussed. - Discussed diet and safety. - Dental care discussed. - [employer] handout given (See Patient Instructions). - Parent/guardian was counseled [id number] by myself (the billing provider) for the following immunizations and vaccine components, including side effects: [employer]. Parent/guardian consents for immunization and understands risks and benefits. A VIS sheet on each immunization was given to the parent/guardian. - Follow up in o UNIVERSAL PROTOCOL / SAFETY CHECKLIST-Procedure to be Performed: cryotherapy w/ liquid nitrogen for wart on right hand Sign In: A Moment of CARE was completed. No special equipment needed. Patient/Surrogate Stated/Verified: PATIENT VERIFIED(optional for EMERGENT procedures): Patient name, Date of , Relevant allergies, and The intended procedure The risks, benefits and anticipated outcomes of the procedure, the risks and benefits of the alternatives to the procedure and the roles and tasks of the personnel to be involved were discussed with the patient and the patient consents to the procedure and agrees to proceed. I verify that I personally obtained Charley Gutierrez's consent. Time Out Communication: Intended patient and procedure match the source documents. No relevant labs, photos, and/or imaging studies were applicable for review. Correct side/site marked and visible. No medications required for procedure. No fire risk assessment and interventions applicable. No implant(s) inserted. Sign Out: SIGN OUT (optional for EMERGENT procedures): No specimen collected. Liquid nitrogen was applied to one wart(s); the patient will return at 2-4 week intervals for retreatments as needed. See patient instructions for homegoing treatments Patient to call if worsening symptoms or concerns Julia Pan MD documented in this encounter [facility] 02-04-2022 Instructions Julia Pan MD - 02/04/2022 3:19 PM EDT Images from the original note were not included. Home Wart Treatment Start home treatment 3-4 days after liquid nitrogen (freezing treatment) 1. Soak area in warm water for 15-20 minutes each night before going to bed. 2. After soaking, use an emery board or pumice stone to file down thick skin on wart. 3. After filing, apply the wart medication. See list below ([id number] wart treatments with 40% salicylic acid are often kept behind the pharmacy counter and you need the pharmacist to help) Examples are: Mediplast (cut pad to size with cuticle scissors) Duofilm (cut pad to size with cuticle scissors) Dr. Wagner's Clear Away, or One Step [facility] drugstore brand wart remover Wart stick (apply with toothpick) 4. Apply duct tape. 5. Repeat nightly for 7-10 days 6. Call office if you have any questions. 5 Eat FIVE fruits and veggies a day 4 Give and get FOUR compliments a day 3 Consume THREE calcium products a day 2 Limit media time to TWO hours a day 1 Get at least ONE hour of exercise a day 0 Consume ZERO sugar-sweetened drinks Go! Be healthy, inside and out! documented in this encounter [facility] 02-02-2022 History of Present illness Narrative Mal Mills MD Department of Orthopaedics Orthopaedics [address] [facility] [address] Dept: [phone] Dept February 02, 2022 CHIEF COMPLAINT: New of the Left Shoulder (Left shoulder injury ) HPI Patient states 01/08 he was roller skating and fell backwards and landed on his left shoulder. He continued to have pain and seen at [facility] on 01/16. X-rays are uploaded into [facility]. Patient plays football. Some days he has pain and other days he does not. His physical fitness trainer has been working with his shoulder. Dad with patient today. AMB ROOMING INTAKE FLOWSHEET DATA Risk Screening Do you have concerns about personal safety or safety in the home?: No ASSESSMENT: S46.662M Left shoulder strain, initial encounter (primary encounter diagnosis) PLAN: He was able to play a bit in the [employer] game. He is not having too much trouble in the shoulder other than normal soreness consistent with playing football, etc. No instability of the shoulder. My recommendation is to continue some rotator cuff strengthening during his workouts and he can return to full contact and he will let the office know if there is any other concerns. FOLLOW UP INSTRUCTIONS: As above Mr. Charley Gutierrez was advised as to contrast therapies and/or to take analgesics/anti-inflammatories as needed and all contraindications were reviewed. OBJECTIVE: Mr. Charley Gutierrez is a pleasant 16 year old in no apparent distress. Gen:There were no vitals taken for this visit. nl development, non obese, no deformities ENT: Normocephalic, normal hearing, moist mucosa CV: Pulses:Radial= 2+ and symmetric, capillary refill < 2 secs, no peripheral edema/varicosities Skin: no rash, bruising or lesions. Good turgor. Psych: cooperative and appropriate, alert and oriented x 3, good mood and affect. Musculoskeletal: Supple range of motion of the cervical spine without pain. Spurling signs are negative. No atrophy of the deltoid and shoulder musculature. Left shoulder is nontender to palpation over the SC joint, clavicle and AC joint. Mild tenderness to palpation over the posterior shoulder and the upper portion of the latissimus, nonpainful anterior lateral corner of the shoulder and greater tuberosity. Mild tenderness at the bicipital groove and coracoid. Active range of motion is 180 degrees of forward elevation, 70 degrees external rotation, and internal rotation to the low thoracic. Passive range of motion is symmetrical, respectively. No laxity with anterior and posterior stress. Negative Neer and Thompson impingement signs. 4/5 strength with supraspinatus, 5/5 infraspinatus and subscapularis. Sensation is intact in the axillary, radial, median and ulnar nerve distribution IMAGIN images from an outside facility of the left shoulder show no problems. Supporting Subjective Information Below: Past Medical History: PAST MEDICAL HISTORY Diagnosis Date Concussion 07/31/2017 NEGATIVE HISTORY OF 12-25-2013 Normal Color Vision Routine or ritual circumcision Unspecified and jaundice Past Surgical History: PAST SURGICAL HISTORY Procedure Laterality Date CIRCUMCISION W/CLAMP/OTH DEV W/BLOCK Family History: FAMILY HISTORY Problem Relation Age of Onset Diabetes Other mggm Social History: Social History Tobacco Use Smoking status: Never Smokeless tobacco: Never Substance Use Topics Alcohol use: No Drug use: No Medications: No current outpatient medications on file. No current facility-administered medications for this visit. Allergies: Patient has no known allergies. ROS: General (negative for fatigue, malaise, weight loss/gain) HEENT (negative for headache, earache, recent vision changes, sinus pain, sore throat) Respiratory (no recent shortness of breath, hemoptysis) CV (negative for chest tightness, palpitations) Musculoskeletal (see HPI) Psych (no depression, anxiety) REFERRING PHYSICIAN: Mr. Charley Gutierrez was referred to ia for consultation by the following physician. This consultation note will be sent to the following physician by either mail or electronic medical record. SELF Julia Pan MD [id number] [facility] [id number] Mal Mills MD documented in this encounter [facility] 01-16-2022 Miscellaneous Notes Reason for call: Football physical fitness trainer suspects patient has dislocated left shoulder. Patient has some pain and mother is concerned there is a pinched nerve. Outcome: Go to ED now; mother will take patient to [place] or [place] ED now. Reason for Disposition Looks like a dislocated joint Protocols used: ARM [id number] documented in this encounter [facility] 03-20-2020 History of Present illness Narrative Radiology Service Progress Note PATIENT NAME: Charley Gutierrez DATE OF SERVICE: March 20, 2020 TIME: 7:39 PM PATIENT IDENTITY VERIFICATION COMPLETED USING TWO (2) IDENTIFIERS: Name and Date of confirmed by patient verbally. FALL SCREENING: Has the patient had 2 falls in the last year or 1 fall with injury or currently using an Ambulatory Assistive Device (Walker, Cane, Wheelchair, Crutches, etc.)? No PATIENT GENDER DATA: Male PATIENT RELEVANT IMPLANT DATA REVIEWED: Not Applicable RADIOLOGY DEPARTMENT: General X-ray: Exam(s) Completed: Upper Extremity X-Ray(s): Fingers/Thumb, left : PERIPHERAL IV DATA: Not applicable SIGNED BY: RT Dion March 20, 2020 7:39 PM documented in this encounter [facility] Evaluation note No assessment inform ation available [facility] Work Phone: Evaluation note Diagnosis Left shoulder strain, initial encounter- Primary [facility] Encounter for routine child health examination w/o abnormal findings- Primary Routine or child health check Encounter for immunization Need for other specified prophylactic vaccination against single bacterial disease Routine screening for STI (sexually transmitted infection) Screening examination for venereal disease Other viral warts documented in this encounter [facility] note* Diagnosis Glenoid labral tear, left, initial encounter- Primary Shoulder instability, left documented in this encounter [facility] Work Phone: Evaluation note* Diagnosis Situational anxiety- Primary Other anxiety states documented in this encounter [facility] note* Diagnosis Quadriceps tendon rupture, left, subsequent encounter- Primary [facility] [place] [facility] Diagnosis Quadriceps tendon rupture, left, subsequent encounter- Primary documented in this encounter [facility] note* Diagnosis Quadriceps tendon rupture, left, subsequent encounter- Primary documented in this encounter [facility] note* Diagnosis Quadriceps tendon rupture, left, subsequent encounter- Primary Superior glenoid labrum lesion of left shoulder, initial encounter Other instability, left shoulder documented in this encounter [facility] note* Diagnosis Rupture of left quadriceps tendon, subsequent encounter- Primary [facility] [place] [facility]* Diagnosis Low back pain, unspecified back pain laterality, unspecified chronicity, unspecified whether sciatica present- Primary Situational anxiety Other anxiety states documented in this encounter [facility] note* Diagnosis Mixed anxiety depressive disorder- Primary Dysthymic disorder Pain of upper abdomen Abdominal pain, other specified site Skin pimple documented in this encounter [facility] note* Diagnosis Thumb pain, left documented in this encounter [facility] note* Diagnosis Quadriceps tendon rupture, left, subsequent encounter documented [facility] [place] [facility]* Diagnosis Quadriceps tendon rupture, left, subsequent encounter- Primary [facility] [place] [facility]* Diagnosis Other instability, left shoulder- Primary Superior glenoid labrum lesion of left shoulder, initial encounter documented in this encounter [facility] note* Diagnosis Superior glenoid labrum lesion of left shoulder, initial encounter- Primary Other instability, left shoulder [facility] [place] [facility]* Diagnosis Quadriceps tendon rupture, left, subsequent encounter- Primary documented in this encounter [facility] note* Diagnosis Superior glenoid labrum lesion of left shoulder, initial encounter- Primary Other instability, left shoulder [facility] [place] [facility] Diagnosis Quadriceps tendon rupture, left, subsequent encounter- Primary [facility] [place] [facility]* Diagnosis Quadriceps tendon rupture, left, subsequent encounter- Primary [facility] Diagnosis Instability of left shoulder joint Tear of left glenoid labrum, subsequent encounter [facility] Diagnosis Superior glenoid labrum lesion of left shoulder, initial encounter- Primary Other instability, left shoulder [facility] Diagnosis Other instability, left shoulder- Primary Superior glenoid labrum lesion of left shoulder, initial encounter [facility] Diagnosis Superior glenoid labrum lesion of left shoulder, initial encounter- Primary Quadriceps tendon rupture, left, subsequent encounter Other instability, left shoulder [facility] Diagnosis Quadriceps tendon rupture, left, subsequent encounter- Primary [facility] Diagnosis Superior glenoid labrum lesion of left shoulder, initial encounter- Primary Other instability, left shoulder [facility] Diagnosis Quadriceps tendon rupture, left, subsequent encounter- Primary [facility] Diagnosis Quadriceps tendon rupture, left, subsequent encounter- Primary [facility] Diagnosis Quadriceps tendon rupture, left, subsequent encounter- Primary [facility]* Diagnosis Superior glenoid labrum lesion of left shoulder, initial encounter- Primary Other instability, left shoulder [facility] Diagnosis Quadriceps tendon rupture, left, subsequent encounter- Primary [facility]* Diagnosis Rupture of left quadriceps tendon, subsequent encounter- Primary Stiffness of left knee [facility] Diagnosis Quadriceps tendon rupture, left, subsequent encounter- Primary Superior glenoid labrum lesion of left shoulder, initial encounter Other instability, left shoulder [facility] Diagnosis Quadriceps tendon rupture, left, subsequent encounter- Primary documented in this [facility] [facility] note* Diagnosis Quadriceps tendon rupture, left, subsequent encounter- Primary [facility] Diagnosis Quadriceps tendon rupture, left, subsequent encounter- Primary Superior glenoid labrum lesion of left shoulder, initial encounter Other instability, left shoulder [facility]* Diagnosis Wellness examination- Primary Screening for endocrine, metabolic and immunity disorder Anxiety with depression Encounter for immunization Need for other specified prophylactic vaccination against single bacterial disease Dyspepsia Dyspepsia and other specified disorders of function of stomach Tension headache [facility] [place] [facility] Diagnosis Tonsillolith- Primary 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 streptococcal pharyngitis PND (post-nasal drip) Postnasal drip Vapes nicotine containing substance documented in this encounter [facility] note* Diagnosis Tonsillith- Primary Other chronic disease of tonsils and adenoids Tonsillolith 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 streptococcal pharyngitis documented in this encounter [facility] [place] [facility]* Diagnosis Anxiety with depression documented in this encounter [facility] Discharge instructions Additional Instructions As discussed, you need to allow your shoulder time to heal. I would recommend at minimum 10 days. If you continue to have pain past this you should follow-up with your primary care provider or with orthopedics.[facility] Work Phone: [employer] for referral (narrative)* Consultation (Routine) - Pending Review Specialty Diagnoses / Procedures Referred By Contvinod t Referred To Contact Physical Therapy Diagnoses Quadriceps tendon rupture, left, subsequent encounter Procedures [place] OFFICE/OUTPATIENT NEW HIGH MDM 60-74 MINUTES Phuc Dykes PA-C [address] [place] [address] Referral ID Status Reason Start Date Expiration Date Visits Requested Visits Authorized [id number] Pending Review Specialty Services Required 06/30/2022 12/27/2022 99 99 [facility] for referral (narrative)* Consultation (Routine) - Pending Review Specialty Diagnoses / Procedures Referred By Contvinod t Referred To Contact Physical Therapy Diagnoses Other instability, left shoulder Superior glenoid labrum lesion of left shoulder, initial encounter Procedures [place] OFFICE/OUTPATIENT NEW HIGH MDM 60-74 MINUTES Lorelei Kumar PA-C [address] [place] [address] [facility] [address] [place] [address] Referral ID Status Reason Start Date Expiration Date Visits Requested Visits Authorized [id number] Pending Review Specialty Services Required 09/27/2022 99 99 [facility] Chief Complaint and Reason for Visit Chief Complaint shoulder injury Chief Complaint shoulder injury KNEE INJURY Summary Purpose Family History No Family History Records FoundNo Family History Records FoundNo Family History Records FoundNo Family History Records FoundNo Family History Records FoundNo Family History Records FoundNo Family History Records Found Advance Directives Latest Code Status on File Code Status Date Activated Date Inactivated Comments Full Code 04/02/2022 6:12 AM Latest Code Status on File Code Status Date Activated Date Inactivated Comments Full Code 05/09/2022 11:22 PM 05/14/2022 6:09 PM Latest Code Status on File Code Status Date Activated Date Inactivated Comments Full Code 05/09/2022 11:22 PM 05/14/2022 6:09 PM Reason for Referral Specialty Diagnoses / Procedures Referred By Gabi trujillo Referred To Contact Diagnoses Situational anxiety Procedures ESTABLISH WITH PRIMARY CARE NEW PATIENT OFFICE/OUTPATIENT [facility] 60 MINUTES Julia Pan MD [address] [place] [address] Referral ID Status Reason Start Date Expiration Date Visits Requested Visits Authorized [id number] Authorized PCP Requested Referral 02/03/2024 02/02/2025 1 1 Additional Source Comments Goals (unrecognized section and content) Goals may be documented in a n alternate sectionGoals may be documented in an alternate section Source Comments (unrecognize d section and content) In the event this informatio n is protected by the Federal Confidentiality of Alcohol and Drug Abuse Patient Records regulations: The Federal rules restrict any use of the information to criminally investigate or prosecute any alcohol or drug abuse patient.[facility] the event this information is protected by the Federal Confidentiality of Alcohol and Drug Abuse Patient Records regulations: The Federal rules restrict any use of the information to criminally investigate or prosecute any alcohol or drug abuse patient.[facility] the event this information is protected by the Federal Confidentiality of Alcohol and Drug Abuse Patient Records regulations: The Federal rules restrict any use of the information to criminally investigate or prosecute any alcohol or drug abuse patient.[facility] the event this information is protected by the Federal Confidentiality of Alcohol and Drug Abuse Patient Records regulations: The Federal rules restrict any use of the information to criminally investigate or prosecute any alcohol or drug abuse patient.[facility] Center[facility] the event this information is protected by the Federal Confidentiality of Alcohol and Drug Abuse Patient Records regulations: The Federal rules restrict any use of the information to criminally investigate or prosecute any alcohol or drug abuse patient.[facility] Center[facility] the event this information is protected by the Federal Confidentiality of Alcohol and Drug Abuse Patient Records regulations: The Federal rules restrict any use of the information to criminally investigate or prosecute any alcohol or drug abuse patient.[facility] Center[facility] the event this information is protected by the Federal Confidentiality of Alcohol and Drug Abuse Patient Records regulations: The Federal rules restrict any use of the information to criminally investigate or prosecute any alcohol or drug abuse patient.[facility] Center[facility] the event this information is protected by the Federal Confidentiality of Alcohol and Drug Abuse Patient Records regulations: The Federal rules restrict any use of the information to criminally investigate or prosecute any alcohol or drug abuse patient.[facility] Center[facility] the event this information is protected by the Federal Confidentiality of Alcohol and Drug Abuse Patient Records regulations: The Federal rules restrict any use of the information to criminally investigate or prosecute any alcohol or drug abuse patient.[facility] Center[facility] the event this information is protected by the Federal Confidentiality of Alcohol and Drug Abuse Patient Records regulations: The Federal rules restrict any use of the information to criminally investigate or prosecute any alcohol or drug abuse patient.[facility] Center[facility] the event this information is protected by the Federal Confidentiality of Alcohol and Drug Abuse Patient Records regulations: The Federal rules restrict any use of the information to criminally investigate or prosecute any alcohol or drug abuse patient.[facility] Center[facility] the event this information is protected by the Federal Confidentiality of Alcohol and Drug Abuse Patient Records regulations: The Federal rules restrict any use of the information to criminally investigate or prosecute any alcohol or drug abuse patient.[facility] CenterIn the event this information is protected by the Federal Confidentiality of Alcohol and Drug Abuse Patient Records regulations: The Federal rules restrict any use of the information to criminally investigate or prosecute any alcohol or drug abuse patient.[facility] Reason for Visit (unrecogniz ed section and content) Reason Comments PT Treatment Specialty Diagnoses / Procedures Referred By Contac t Referred To Contact Physical Therapy Diagnoses Quadriceps tendon rupture, left, subsequent encounter Procedures [place] OFFICE/OUTPATIENT NEW HIGH [facility] 60-74 MINUTES Phuc Dykes PA-C 1 [facility] [address] [place] [address] [facility] [address] [place] [address] Referral ID Status Reason Start Date Expiration Date Visits Requested Visits Authorized [id number] Authorized Eval and Treat 2022 11/29/2022 99 99 Reason Comments PT Re-evaluation Reason Comments PT Re-evaluation PT Discharge Specialty Diagnoses / Procedures Referred By Contac t Referred To Contact Physical Therapy Diagnoses Other instability, left shoulder Superior glenoid labrum lesion of left shoulder, initial encounter Procedures [place] OFFICE/OUTPATIENT [facility] 60-74 MINUTES Lorelei Kumar PA-C 1 [facility] [address] [place] [address] [facility] [address] [place] [address] Referral ID Status Reason Start Date Expiration Date Visits Requested Visits Authorized [id number] Pending Review Specialty Services Required 09/27/2022 99 99 Reason Comments PT Initial Eval Reason Comments Shoulder Dislocation Reason Comments New Left shoulder injury Reason Comments Well Child 16 year check up Reason Comments Anxiety Eval Reason Comments Post-op left patella fractur e, quadriceps tendon repair, excision left patella fragment and arthrotomy left knee with irrigation and debridement of knee and open patella fracture. His surgery was on 05/10/22. . Reason Comments Puncture Wound Reason Comments Back Pain Middle back pain x 4 -5 day's seen at [facility] on 01/31/24 Reason Comments anxiety and depression Reason Comments Radiology XR Reason Comments Pt Re-evaluation Reason Comments Post-op left quadriceps tend on rupture, excision left patella fragment and arthrotomy left knee with irrigation and debridement of knee and open patella fracture Reason Comments Follow-up DOS 04/02/2022 Left shoulder anterior labral repair/capsulorrhaphy x 4 anchors Reason Comments Post-op quadriceps tendon ru pture, excision left patella fragment and arthrotomy left knee with irrigation and debridement of knee and open patella fracture. His surgery was on 05/10/22. Reason Comments Swollen Tonsils Reason Comments Consult Specialty Diagnoses / Procedures Referred By Gabi trujillo Referred To Contact Ent - Otolaryngology Diagnoses Tonsillolith Recurrent streptococcal pharyngitis Procedures CONSULT TO ENT OFFICE/OUTPATIENT [facility] 60 MINUTES Jean Claude Adkins, CAROL.[facility] [address] [place] [address] Phone: tel: fax: Referral ID Status Reason Start Date Expiration Date V isits Requested Visits Authorized [id number] Closed PCP Requested Referral 11/15/2024 11/15/2025 1 1 Reason Onset Date Comments Refill Request 01/27/2025 Care Teams (unrecognized sec tion and content) Housesmith Relationship Specialty Start Date End Date Julia Pan MD [address] [place], [place] [address] PCP - General Pediatrics 12/21/17 Housesmith Relationship Specialty Start Date End Date Julia Pan MD [address] [place] [address] PCP - General Pediatrics 12/21/17 Housesmith Relationship Specialty Start Date End Date Julia Pan MD [address] [place], [place] [address] PCP - General Pediatrics 12/21/17 Housesmith Relationship Specialty Start Date End Date Julia Pan MD [address] [place] [address] PCP - General Pediatrics 12/21/17 Housesmith Relationship Specialty Start Date End Date Julia Pan MD [address] [place] [address] PCP - General Pediatrics 12/21/17 Housesmith Relationship Specialty Start Date End Date Julia Pan [address] [place] [address] PCP - General Pediatrics 04/27/22 PanFredericka [address] [place] [address] 03/31/22 Housesmith Relationship Specialty Start Date End Date Julia Pan [address] [place] [address] PCP - General Pediatrics 04/27/22 Frederick Pana [address] [place] [address] 03/31/22 Housesmith Relationship Specialty Start Date End Date PanJulia [address] [place] [address] PCP - General Pediatrics 04/27/22 LexusFredericka [address] [place] [address] 03/31/22 Housesmith Relationship Specialty Start Date End Date Julia Pan [address] [place] [address] PCP - General Pediatrics 04/27/22 Julia Pan [address] [place] [address] 03/31/22 Housesmith Relationship Specialty Start Date End Date Julia Pan MD [address] [place] [address] PCP - General Pediatrics 12/21/17 Housesmith Relationship Specialty Start Date End Date Julia Pan MD [address] [place] [address] PCP - General Pediatrics 12/21/17 Housesmith Relationship Specialty Start Date End Date Julia Pan MD [address] [place] [address] PCP - General Pediatrics 12/21/17 03/14/24 Housesmith Relationship Specialty Start Date End Date LexusJulia [address] [place] [address] PCP - General Pediatrics 04/27/22 Lexus Julia [address] [place] [address] 03/31/22 Housesmith Relationship Specialty Start Date End Date Lexus Julia [address] [place] [address] PCP - General Pediatrics 04/27/22 Julia Pan [address] [place] [address] 03/31/22 Housesmith Relationship Specialty Start Date End Date PanJulia [address] [place] [address] PCP - General Pediatrics 04/27/22 Julia Pan [address] [place] [address] 03/31/22 Housesmith Relationship Specialty Start Date End Date LexusFredericka [address] [place] [address] PCP - General Pediatrics 04/27/22 Julia Pan [address] [place] [address] 03/31/22 Housesmith Relationship Specialty Start Date End Date Julia Pan [address] [place] [address] PCP - General Pediatrics 04/27/[address] [place] [address] 03/31/22 Housesmith Relationship Specialty Start Date End Date [place] [place] [address] PCP - General Pediatrics 04/27/[address] [place] [place] [address] 03/31/22 Housesmith Relationship Specialty Start Date End Date [place] [place] [address] PCP - General Pediatrics 04/27/[address] [place] [place] [address] 03/31/22 Housesmith Relationship Specialty Start Date End Date Julia [place] [place] [address] PCP - General Pediatrics 04/27/[address] [place] [place] [address] 03/31/22 Housesmith Relationship Specialty Start Date End Date [place] [place] [address] PCP - General Pediatrics 04/27/22 Julia Pan [address] [place] [address] 03/31/22 Housesmith Relationship Specialty Start Date End Date [place] [place] [address] PCP - General Pediatrics 04/27/22 Julia Pan [address] [place] [address] 03/31/22 Housesmith Relationship Specialty Start Date End Date Julia Pan [address] [place] [address] PCP - General Pediatrics 04/27/22 Julia Pan [address] [place] [address] 03/31/22 Housesmith Relationship Specialty Start Date End Date System, Provider Not In DO NOT CHANGE DO NOT CHANGE, [place] PCP - General 03/31/22 04/26/22 Julia Pan [address] [place] [address] PCP - General Pediatrics 04/27/22 Julia Pan [address] [place] [address] 03/31/22 Housesmith Relationship Specialty Start Date End Date Julia Pan [place] [address] PCP - General Pediatrics 04/27/22 Julia Pan [address] [place] [address] 03/31/22 Housesmith Relationship Specialty Start Date End Date Julia Pan [address] [place] [address] PCP - General Pediatrics 04/27/22 Julia Pan [address] [place] [address] 03/31/22 Housesmith Relationship Specialty Start Date End Date Jluia Pan [place] [address] PCP - General Pediatrics 04/27/22 Lexus Julia [address] [place] [address] 03/31/22 Housesmith Relationship Specialty Start Date End Date Julia [place] [place] [address] PCP - General Pediatrics 04/27/22 Julia Pan [address] [place] [address] 03/31/22 Housesmith Relationship Specialty Start Date End Date Julia [place] [place] [address] PCP - General Pediatrics 04/27/[address] [place] [address] 03/31/22 Housesmith Relationship Specialty Start Date End Date Julia [place] [address] PCP - General Pediatrics 04/27/[address] [place] [address] 03/31/22 Housesmith Relationship Specialty Start Date End Date Julia [place] [place] [address] PCP - General Pediatrics 04/27/[address] [place] [place] [address] 03/31/22 Housesmith Relationship Specialty Start Date End Date Julia Pan [address] [place] [address] PCP - General Pediatrics 04/27/22 Julia Pan [address] [place] [address] 03/31/22 Housesmith Relationship Specialty Start Date End Date [place] [place] [address] PCP - General Pediatrics 04/27/22 Julia Pan [address] [place] [address] 03/31/22 Housesmith Relationship Specialty Start Date End Date Matt Moreno DO [address] [facility] [place] [address] PCP - General Family Medicine 07/11/24 Housesmith Relationship Specialty Start Date End Date Matt Moreno DO [address] [facility] [place] [address] PCP - General Family Medicine 07/11/24 Jean Claude Adkins, AFTERSCHOOL BABYSITTER.CLAY MOLDER [address] [facility] [place] [address] Heat Treat Operator Family Medicine 11/15/24 Do Cerna, AFTERSCHOOL BABYSITTER.CLAY MOLDER [address] [facility] [place] [address] Heat Treat Operator Family Medicine 11/15/24 Housesmith Relationship Specialty Start Date End Date Matt Moreno DO [address] [facility] [place] [address] PCP - General Family Medicine 07/11/24 Jean Claude Adkins, AFTERSCHOOL BABYSITTER.CLAY MOLDER [address] [facility] [place] [address] Heat Treat Operator Family Medicine 11/15/24 Do Cerna, AFTERSCHOOL BABYSITTER.CLAY MOLDER [address] [facility] [place] [address] Heat Treat Operator Family Medicine 11/15/24 Housesmith Relationship Specialty Start Date End Date Matt Moreno DO [address] [place], [place] [address] PCP - General Family Medicine 07/11/24 Jean Claude Adkins APRN.CLAY MOLDER [address] [place], [place] [address] Heat Treat Operator Family Medicine 11/15/24 Do Cerna APRN.CLAY MOLDER [address] [place], [place] [address] Heat Treat Operator Family Medicine 01/24/25 (unrecognized sect ion and content) No Status Records FoundNo Status Records FoundNo Status Records FoundNo Status Records FoundNo Status Records FoundNo Status Records FoundNo Status Records Found INFORMATION SOURCE (unrecogn ized section and content) DATE CREATED AUTHOR 03/14/2022 [facility] DATE CREATED AUTHOR AUTHOR'S ORGANIZ ATION 03/21/2022 [facility] [employer] [facility] DATE CREATED AUTHOR AUTHOR'S ORGANIZ ATION 04/08/2022 [facility] DATE CREATED AUTHOR AUTHOR'S ORGANIZ ATION 05/01/2022 [facility] DATE CREATED AUTHOR AUTHOR'S ORGANIZ ATION 09/24/2022 [facility] DATE CREATED AUTHOR AUTHOR'S ORGANIZ ATION 02/26/2024 [facility] DATE CREATED AUTHOR AUTHOR'S ORGANIZ ATION 11/27/2024 [facility] Ordered Prescriptions (unrec ognized section and content) Prescription Sig Dispensed Refills Start Date End Da te ondansetron (ZOFRAN ODT) 4 MG disintegrating tablet Take 1 tablet by mouth every 8 hours as needed for Nausea or Vomiting 5 tablet 0 04/02/2022 docusate sodium (COLACE) 100 MG capsule Take 1 capsule by mouth 2 times daily as needed for Constipation Take 2 times a day as long as you are taking pain medicine or needed for constipation 30 capsule 0 04/02/2022 oxyCODONE-acetaminophe n (PERCOCET) 5-325 MG per tabletIndications:Shou lder instability, left,Glenoid labral tear, left, initial encounter Take 1 tablet by mouth every 6 hours as needed for Pain for up to 7 days. Intended supply: 7 days. Take lowest dose possible to manage pain 28 tablet 0 04/02/2022 04/09/2022 Scheduled Active and Recently Administ ered Medications (unrecognized section and content) Medication Order 03/31/2022 04/01/2022 04/02/2022 acetaminophen (TYLENOL) tablet 1,000 mg (COMPLETED) 1,000 mg, Oral, ONCE, 1 dose, On Keely 04/02/22 at 0630, Maximum dose of acetaminophen is 4000 mg from all sources in 24 hours. Do not administer if patient has taken tylenol <4 hours earlier. Do not give if contraindicated ie. patient has active liver disease or cirrhosis., Pre-op (day of surgery) 0630 (Given - Provid er: Adele Sigala RN) aprepitant (EMEND) capsule 40 mg (COMPLETED) 40 mg, Oral, ONCE, 1 dose, On Keely 04/02/22 at 0700, Pre-op (day of surgery) 0646 (Given - Provid er: Adele Sigala RN) ceFAZolin (ANCEF) 2000 mg in dextrose 4 % 100 mL IVPB (premix) (COMPLETED) 2,000 mg, IntraVENous, HANDLE AND VENT MACHINE OPERATOR TO O.R., 1 dose, On Keely 04/02/22 at 0630, Antimicrobial Indications: Surgical Prophylaxis, Administer within 1 hour prior to incision. Recommend to repeat in 3-4 hours after initial dose if still intra-op., Pre-op (day of surgery) 0738 (Given by Other Clinician - Provider: Noemi Sevilla, RN)1008 (Stopped - Provider: Noemi Sevilla, MARTHA) dexameth sod [id number] (TAP) syringe SOSY 30 mL (COMPLETED) 30 mL, Transabdominal Plane, ONCE, 1 dose, On Keely 04/02/22 at 0715, Brachial plexus not TAP, PACU only 0700 (Given by Other - Provider: Lorelei Champion RN) famotidine (PEPCID) tablet 20 mg (COMPLETED) 20 mg, Oral, ONCE, 1 dose, On Keely 04/02/22 at 0630, Pre-op (day of surgery) 0630 (Given - Provid er: Adele Sigala RN) lidocaine PF 1 % injection 5 mL (COMPLETED) 5 mL, IntraDERmal, ONCE, 1 dose, On Keely 04/02/22 at 0715, Draw up for preparation of administration during block procedure., PACU only 0658 (Given by Other - Provider: Lorelei Champion, MARTHA) LORazepam (ATIVAN) injection 0.5 mg 0.5 mg, IntraVENous, ONCE, 1 dose, On Keely 04/02/22 at 0715, PACU only 0715 (Due) midazolam (VERSED) injection 2 mg (COMPLETED) 2 mg, IntraVENous, ONCE, 1 dose, On Keely 04/02/22 at 0715, Prior to regional, Pre-op (day of surgery) 0657 (Given - Provid er: Lorelei Champion, MARTHA) sodium chloride flush 0.9 % injection 5-40 mL 5-40 mL, IntraVENous, EVERY 12 HOURS SCHEDULED (2 times per day), First dose on Keely 04/02/22 at 0900, Until Discontinued, For Line Patency: Peripheral IV = 5 mL; Midline or Central Line = 10 mL/lumen. If following IV push medication, administer flush at same rate as the IV push. Flush volume is determined by type of infusion therapy being given. For non-viscous solutions use: Peripheral IV = 5 mL Midline or Central Line = 10 mL/lumen For viscous solutions (i.e. blood components, parenteral nutrition, contrast media, or after obtaining blood sample) use: Peripheral IV = 10 mL Midline or Central Line = 20 mL/lumen, Pre-op (day of surgery) 0900 (Due)2100 (Due) sodium chloride flush 0.9 % injection 5-40 mL 5-40 mL, IntraVENous, EVERY 12 HOURS SCHEDULED (2 times per day), First dose on Keely 04/02/22 at 0900, Until Discontinued, For Line Patency: Peripheral IV = 5 mL; Midline or Central Line = 10 mL/lumen. If following IV push medication, administer flush at same rate as the IV push. Flush volume is determined by type of infusion therapy being given. For non-viscous solutions use: Peripheral IV = 5 mL Midline or Central Line = 10 mL/lumen For viscous solutions (i.e. blood components, parenteral nutrition, contrast media, or after obtaining blood sample) use: Peripheral IV = 10 mL Midline or Central Line = 20 mL/lumen, PACU only 0900 (Due)2100 (Due) Continuous Medication Order 03/31/2022 04/01/2022 04/02/2022 lactated ringers infusion IntraVENous, at 50 mL/hr, CONTINUOUS, Starting on Keely 04/02/22 at 0630, Upon admission to sameday - please start iv if patient does not have iv access. Use 500ml NS for patients on dialysis., Pre-op (day of surgery) 0630 (Due) lactated ringers infusion IntraVENous, at 50 mL/hr, CONTINUOUS, Starting on Keely 04/02/22 at 0715, PACU only 0715 (Due) PRN Medication Order 03/31/2022 04/01/2022 04/02/2022 0.9 % sodium chloride bolus 500 mL (6.77 mL/kg), IntraVENous, at 1,000 mL/hr, Administer over 0.5 Hours, PRN, Anti-nausea, Starting on Keely 04/02/22 at 0647, PACU only 0.9 % sodium chloride infusion IntraVENous, at 5-250 mL/hr, PRN, if patient receiving piggyback infusions and maintenance fluids are not ordered OR KVO fluids to protect IV site / prevent frequent line interruptions/ long duration, Starting on Keely 04/02/22 at 0612, For piggyback infusion, administer at same rate as piggyback for a total of 25 mL. Enter 25 mL into dose field and piggyback rate into rate field of order. If piggyback is infusing at a rate less than 100 mL/hr, enter 25 mL into dose field and 100 mL/hr into rate field of order. For KVO fluids, enter rate of 20 mL/hr or less into rate field of order., Pre-op (day of surgery) diphenhydrAMINE (BENADRYL) injection 12.5 mg 12.5 mg, IntraVENous, ONCE PRN, 1 dose, Starting on Keely 04/02/22 at 0647, Until Wed04/03/22 at 0647, Itching, PACU only fentaNYL (SUBLIMAZE) injection 100 mcg 100 mcg, IntraVENous, PRN, Starting on Keely 04/02/22 at 0647, Until Discontinued, administration per anesthesiologist direction. Up to 100 micrograms., Pull 2 ml vial of Fentanyl and draw up in PACU for anesthesia block placement with administration per anesthesiologist direction. Up to 100 micrograms., PACU only 0657 (Given - Provid er: Lorelei Champion RN) hydrALAZINE (APRESOLINE) injection 5 mg(Linked Group 1) 5 mg, IntraVENous, EVERY 10 MIN PRN, 2 doses, Starting on Keely 04/02/22 at 0647, Until Discontinued, High Blood Pressure, for SBP greater than 160 mmHg for 2 consecutive measurements taken from different sites, PRN for SBP > 160 for 2 consecutive measurements, and if one of the following conditions is met: 1) If IV labetolol is ineffective. 2) If HR is under 60. 3) If patient has heart block, COPD or asthma. If both labetalol and hydralazine ineffective, notify anesthesiologist. for use Sameday and, PACU only HYDROmorphone (DILAUDID) injection 0.25 mg HYDROmorphone (DILAUDID) 1.5mg IV is equivalent to morphine 10mg IV, 0.25 mg, IntraVENous, EVERY 5 MIN PRN, 4 doses, Starting on Keely 04/02/22 at 0647, Until Discontinued, Pain Moderate (4-6), Phase I and Phase II- Initial therapy for moderate pain (4-6). Restricted to a 90 minute time frame starting when the patient can verbally state their pain score. If oral meds are utilized, do not return to initial therapy medications. SDS and, PACU only 1027 (Given - Provid er: Noemi Sevilla RN) HYDROmorphone (DILAUDID) injection 0.5 mg HYDROmorphone (DILAUDID) 1.5mg IV is equivalent to morphine 10mg IV, 0.5 mg, IntraVENous, EVERY 5 MIN PRN, 4 doses, Starting on Keely 04/02/22 at 0647, Until Discontinued, Pain Severe (7-10), Phase I or Phase II- Initial therapy for severe pain (7-10). Restricted to a 90 minute time frame starting when the patient can verbally state their pain score. If oral meds are utilized, do not return to initial therapy medications. SDS and, PACU only 1009 (Given - Provid er: Noemi Sevilla RN) labetalol (NORMODYNE;TRANDATE) injection 5 mg(Linked Group 1) 5 mg, IntraVENous, EVERY 10 MIN PRN, 2 doses, Starting on Keely 04/02/22 at 0647, Until Discontinued, High Blood Pressure, for SBP greater than 160 mmHg for 2 consecutive measurements taken from different sites., PRN for SBP >160 for 2 consecutive measurements, if HR is 60 or greater. If beta analia is contraindicated (HR less than 60, heart block, COPD or asthma) use hydralazine IV order. for use Sameday and, PACU only lidocaine PF 1 % injection 1 mL 1 mL, IntraDERmal, ONCE PRN, 1 dose, Starting on Wed04/02/22 at 0612, Until Wed04/03/22 at 0612, IV start, Pre-op (day of surgery) meperidine (DEMEROL) injection 12.5 mg 12.5 mg, IntraVENous, EVERY 5 MIN PRN, 4 doses, Starting on Keely 04/02/22 at 0647, Until Discontinued, Shivering, , May give every 5 minutes to max of 50mg., PACU only ondansetron (ZOFRAN) injection 4 mg 4 mg, IntraVENous, ONCE PRN, 1 dose, Starting on Keely 04/02/22 at 0647, Until Wed04/03/22 at 0647, Nausea, Initial antiemetic therapy., PACU only oxyCODONE (ROXICODONE) immediate release tablet 10 mg(Linked Group 2) 10 mg, Oral, PRN, 1 dose, Starting on Wed04/02/22 at 0647, Until Wed04/02/22 at 2359, Pain Severe (7-10), PHASE II, PACU only oxyCODONE (ROXICODONE) immediate release tablet 5 mg(Linked Group 2) 5 mg, Oral, PRN, 1 dose, Starting on Wed04/02/22 at 0647, Until Keely 04/02/22 at 2359, Pain Moderate (4-6), PHASE II, PACU only sodium chloride flush 0.9 % injection 5-40 mL 5-40 mL, IntraVENous, PRN, Starting on Keely 04/02/22 at 0612, Until Discontinued, Line Care, After every IV line use, For Line Patency: Peripheral IV = 5 mL; Midline or Central Line = 10 mL/lumen. If following IV push medication, administer flush at same rate as the IV push. Flush volume is determined by type of infusion therapy being given. For non-viscous solutions use: Peripheral IV = 5 mL Midline or Central Line = 10 mL/lumen For viscous solutions (i.e. blood components, parenteral nutrition, contrast media, or after obtaining blood sample) use: Peripheral IV = 10 mL Midline or Central Line = 20 mL/lumen, Pre-op (day of surgery) sodium chloride flush 0.9 % injection 5-40 mL 5-40 mL, IntraVENous, PRN, Starting on Keely 04/02/22 at 0647, Until Discontinued, Line Care, After every IV line use, For Line Patency: Peripheral IV = 5 mL; Midline or Central Line = 10 mL/lumen. If following IV push medication, administer flush at same rate as the IV push. Flush volume is determined by type of infusion therapy being given. For non-viscous solutions use: Peripheral IV = 5 mL Midline or Central Line = 10 mL/lumen For viscous solutions (i.e. blood components, parenteral nutrition, contrast media, or after obtaining blood sample) use: Peripheral IV = 10 mL Midline or Central Line = 20 mL/lumen, PACU only Linked Groups Order Group 1: labetalol (NORMODYNE;TRANDATE) injection 5 mgJump to med 5 mg, IntraVENous, EVERY 10 MIN PRN, 2 doses, Starting on Keely 04/02/22 at 0647, Until Discontinued, High Blood Pressure, for SBP greater than 160 mmHg for 2 consecutive measurements taken from different sites.
PRN for SBP >160 for 2 consecutive measurements, if HR is 60 or greater. If beta analia is contraindicated (HR less than 60, heart block, COPD or asthma) use hydralazine IV order. for use Sameday and
PACU only Or hydrALAZINE (APRESOLINE) injection 5 mgJump to med 5 mg, IntraVENous, EVERY 10 MIN PRN, 2 doses, Starting on Keely 04/02/22 at 0647, Until Discontinued, High Blood Pressure, for SBP greater than 160 mmHg for 2 consecutive measurements taken from different sites
PRN for SBP > 160 for 2 consecutive measurements, and if one of the following conditions is met: 1) If IV labetolol is ineffective. 2) If HR is under 60. 3) If patient has heart block, COPD or asthma. If both labetalol and hydralazine ineffective, notify anesthesiologist. for use Sameday and
PACU only Group 2: oxyCODONE (ROXICODONE) immediate release tablet 5 mgJump to med 5 mg, Oral, PRN, 1 dose, Starting on Keely 04/02/22 at 0647, Until Keely 04/02/22 at 2359, Pain Moderate (4-6)
PHASE II
PACU only Or oxyCODONE (ROXICODONE) immediate release tablet 10 mgJump to med 10 mg, Oral, PRN, 1 dose, Starting on Keely 04/02/22 at 0647, Until Keely 04/02/22 at 2359, Pain Severe (7-10)
PHASE II
PACU only FOR RECORDS PERTAINING TO PATIENTS WHO ARE OR HAVE BEEN ENROLLED IN A CHEMICAL DEPENDENCY/SUBSTANCEABUSE PROGRAM, SOME INFORMATION MAY BE OMITTED. This clinical summary was aggregated from multiple sources. Caution should be exercised in using it in the provision of clinical care. This summary normalizes information from multiple sources, and as a consequence, information in this document may materially change the coding, format and clinical context of patient data. In addition, data may be omitted in some cases. CLINICAL DECISIONS SHOULD BE BASED ON THE PRIMARY CLINICAL RECORDS. [employer] [facility]. provides no warranty or guarantee of the accuracy or completeness of information in this document.
[2025-03-07 03:14] VITALS: BP 132/74; PULSE 68; RESP 12; TEMP 36.6; O2SAT 97
== END 2025-03-07 03:14 | disposition home or self-care (01) ==
PROVIDERS: Emergency Provider Emergency Medicine; Visit Provider Emergency Medicine
DX: U07.0 Vaping-related disorder (principal); R05.9 Cough, unspecified; F41.9 Anxiety disorder, unspecified; F32.A Depression, unspecified; Z79.899 Other long term (current) drug therapy
CPT/HCPCS: 71046; 94640; 99282